=== PATIENT | female | born 1935 | race Hispanic/Latino ===

== ENCOUNTER 2017-07-22 17:05 | Inpatient (IN) | payer MEDICARE, MEDICAID ==
[2017-07-22 17:33] LABS: Bilirubin Negative (Negative); Blood, Urine Negative (Negative); Clarity CLOUDY (Clear); Glucose, Urine (Dipstick) Negative (Negative); Leukocyte Small (Negative); Nitrite Positive (Negative); Protein, Urine (Dipstick) Trace mg/dL (Neg-Trace); Urobilinogen 0.2 mg/dL (0.2-1.0); pH, Urine 5.5 (5.0-9.0)
[2017-07-22 17:36] LABS: Bacteria/HPF 3+ HPF (None Seen); Hyaline Casts/LPF 0-3 HYALINE CAST LPF (0-3 Hyaline)
[2017-07-22 17:52] LABS: #Eosinphils 0.1 thou/uL (0.0-0.7); #Lymphocytes 1.7 thou/uL (1.20-3.40); #Monocytes 0.5 thou/uL (0.11-0.59); #Neutrophils 4.8 thou/uL (1.40-6.50); %Basophils 0.5 % (0.0-1.0); %Eosinophils 1.7 % (0.0-10.0); %Neutrophils 66.8 % (42.0-75.0); Mean Corpuscular HGB CONC 32.1 g/dL (32.0-36.0); Mean Corpuscular Hemoglobin 27.2 pg (27.0-31.0); Mean Corpuscular Volume 84.8 fl (81.0-99.0); Mean Platelet Volume 8.6 fL (7.4-10.4); Platelet Count 170 thou/uL (130-400); RBC Distribution Width 14.7 % (11.5-14.5); Red Blood Cell (RBC) Count 4.43 mill/uL (4.20-5.40); White Blood Cell (WBC) Count 7.2 thou/uL (4.8-10.8)
[2017-07-22 18:18] LABS: ALT (SGPT) 8 U/L (8-55); AST (SGOT) 14 U/L (5-34); Albumin 3.9 g/dL (3.4-4.8); Alkaline Phosphatase 97 U/L (40-150); Anion Gap 16 mmol/L (10-20); BUN (Urea Nitrogen) 41 mg/dL (9.8-20.1); Bilirubin, Total 0.2 mg/dL (0.2-1.2); Calc. Creatinine Clearance 0 mL/min (70-130); Calcium 9.2 mg/dL (7.8-10.44); Carbon Dioxide 21 mmol/L (23-31); Chloride 103 mmol/L (98-107); Estimated GFR-MDRD 34; Globulin 2.9 g/dL (2.4-3.5); Glucose 102 mg/dL (83-110); Potassium 4.6 mmol/L (3.5-5.1); Protein, Total 6.8 g/dL (6.0-8.3); Sodium 135 mmol/L (136-145)
[2017-07-22] MEDS ORDERED: cefTRIAXone\\ROCEPHIN 1 GM VIAL ONE (18:35)
[2017-07-22] MEDS ORDERED: cloNIDine 0.1 MG TAB ONE (19:01)
--- NOTE | 2017-07-22 19:15 | CT ---
CT HEAD WITHOUT CONTRAST: 07/22/17 Multiple axial tomograms obtained through the head without IV enhancement. HISTORY: Dizziness. Cortical atrophy. Ischemic white matter change. No hemorrhage, mass, or acute infarct identified. The re is mucosal opacification of the left sphenoid sinus. The other paranasal sinuses appear well aerat ed. The sphenoid sinus opacification is stable when compared to prior head CT of 05/09/15. IMPRESSION: No evidence of acute process. POS: [facility]
[2017-07-22 19:21] LABS: CKMB 0.8 ng/mL (0-6.6); Troponin I Less than 0.010 ng/mL (< 0.028)
[2017-07-22] MEDS ORDERED: hydrALAZINE 20 MG/ML VIAL ONE (20:32)
[2017-07-22] MEDS ORDERED: tiZANidine HCl 4 MG TAB PO SCH (23:00)
[2017-07-22] MEDS: traMADol HCl 50 MG TAB PO PRN (23:04)
[2017-07-22 23:12] LABS: Troponin I 0.012 ng/mL (< 0.028)
[2017-07-23 01:28] LABS: Troponin I 0.021 ng/mL (< 0.028)
[2017-07-23] MEDS: traMADol HCl 50 MG TAB PO PRN ×4 (04:25→23:33)
[2017-07-23 04:35] LABS: INR-International Normal Ratio 2.1; Prothrombin Time 24.4 SEC (12.0-14.7)
[2017-07-23] MEDS ORDERED: cefTRIAXone\\ROCEPHIN 1 GM in Sodium Chloride 0.9% 100 ML IVPB SCH (06:00)
[2017-07-23] MEDS: Hydrochlorothiazide 25 MG TAB PO SCH (09:14)
[2017-07-23] MEDS: Amlodipine 10 MG TAB PO SCH (09:15)
[2017-07-23] MEDS: Furosemide 20 MG TAB PO SCH ×2 (09:16→14:03)
[2017-07-23] MEDS: Lisinopril 20 MG TAB PO SCH ×2 (09:16→21:11)
[2017-07-23] MEDS: Ferrous Sulfate 325 MG TAB PO SCH (09:17)
[2017-07-23] MEDS: hydrALAZINE 10 MG TAB PO SCH ×3 (09:17→21:11)
[2017-07-23] MEDS ORDERED: Regadenoson 0.4 MG/5 ML SYRINGE ONE (11:32)
--- NOTE | 2017-07-23 15:49 | NM ---
CARDIAC SPECT: CLINICAL HISTORY: 81-year-old female with dizziness, coronary artery disease, atrial fibrillation, hypertensio n, diabetes, and dyslipidemia. TECHNIQUE: A myocardial perfusion scan was performed using the single isotope one day protocol with technetium-9 9m sestamibi. 9 mCi were injected intravenously for the rest exam followed by 29 mCi for the stress e xam. Pharmacologic stress with Lexiscan was monitored and interpreted by Dr. Parry. FINDINGS: There is a small, fixed defect in the distal anteroseptal wall with normal contractility and thickeni ng, most likely due to an artifact. No reversible defects are seen. GATED SPECT LVEF: 76%. WALL MOTION EXAM: Normal. IMPRESSION: No evidence of reversible ischemia. POS: [facility]
[2017-07-23] MEDS ORDERED: Warfarin Sodium 5 MG TAB PO SCH (17:00)
[2017-07-23] MEDS ORDERED: Insulin Regular 300 UNITS/3 ML VIAL SC PRN (18:19)
[2017-07-23] MEDS ORDERED: Dextrose 50% Abboject 50 ML SYRINGE IVP PRN (18:19)
[2017-07-23] MEDS ORDERED: Dextrose 5% in Water 1,000 ML IV PRN (18:19)
[2017-07-23] MEDS ORDERED: Simvastatin 20 MG TAB PO SCH (21:00)
[2017-07-23] MEDS ORDERED: tiZANidine HCl 4 MG TAB PO SCH (21:00)
[2017-07-24 05:35] LABS: Hemoglobin 11.9 g/dL (12.0-16.0); Platelet Count 170 thou/uL (130-400); Prothrombin Time 23.4 SEC (12.0-14.7)
[2017-07-24] MEDS ORDERED: cefTRIAXone\\ROCEPHIN 1 GM in Sodium Chloride 0.9% 100 ML IVPB SCH (06:00)
--- NOTE | 2017-07-24 07:49 | HP ---
DATE OF ADMISSION: 07/22/2017 REASON FOR ADMISSION AND CHIEF COMPLAINT: Dizziness, not feeling well, and nausea. HISTORY OF PRESENT ILLNESS: Ms. Linares is an 81-year-old female with past medical history of coronary artery disease, hypertension, atrial fibrillation, and diabetes mellitus, came because of has been feeling very dizzy , unable to ambulate, not feeling well, feels nauseated, no vomiting, but no chest pain or shortness of breath, no headache. The patient also has increased frequency and dysuria, so the patient came to the hospital. In the ER, the patient was evaluated and found to have urinary tract infection. The patient received a dose of Rocephin. Her EKG showed T-wave inversions, so in view of that, the patient is being admitted to rule out myocardial infarction. The patient was also found to have elevated blood pressure. PAST MEDICAL HISTORY: 1. Hypertension. 2. Diabetes mellitus. 3. Hyperlipidemia. 4. History of cerebrovascular accident. 5. Chronic kidney disease, stage 3. 6. Coronary artery disease. 7. Chronic atrial fibrillation, on anticoagulation. PAST SURGICAL HISTORY: Status post appendectomy, status post cholecystectomy. CURRENT MEDICATIONS: The patient is on tizanidine 4 mg at bedtime, tramadol 50 q.i.d. p.r.n., Coumadin 5 mg daily, amlodipine 10 mg daily, aspirin 81 mg daily , diltiazem 120 mg daily, Lasix 20 b.i.d., hydralazine 10 t.i.d., hydrochlorothiazide 25 mg daily, lisinopril 20 b.i.d., metformin 1000 b.i.d., sertraline 50 mg daily, simvastatin 20 mg daily. ALLERGIES: NKDA. FAMILY HISTORY: Nothing of interest. SOCIAL HISTORY: The patient lives alone. No history of smoking. No history of alcohol intake. REVIEW OF SYSTEMS: Cardiovascular: No chest pain, no shortness of breath. Respiratory: No fever or cough. Gastrointestinal: Has nausea. No vomiting. Central Nervous System: Has dizziness, no headache. PHYSICAL EXAMINATION: GENERAL: The patient is alert, awake, oriented x3. VITAL SIGNS: Temperature 98, pulse 90, respirations 20, blood pressure 169/77. HEENT: Head is normocephalic, atraumatic. Pupils equal and reactive. Nasopharynx is pink, moist. NECK: Supple. No JVD. LUNGS: Bilateral air entry present, no rales, no rhonchi. HEART: S1, S2, irregularly irregular. ABDOMEN: Soft. No distention, no tenderness. Normal bowel sounds present. RECTAL: Deferred. CENTRAL NERVOUS SYSTEMS: No focal neurological deficit. EXTREMITIES: No edema. LABORATORY AND X-RAY FINDINGS: CBC shows WBC 7.2, hemoglobin 12, hematocrit 37 , platelets 170. Metabolic panel: Sodium 135, potassium 4.6, chloride 103, CO2 of 20, urea nitrogen 41, creatinine 1.4, glucose 102. Prothrombin time 24, INR 2.1. Urinalysis showed wbc's 7-10, bacteria 3+. EKG shows sinus rhythm with T-wave inversion in V3, V6. Brain CT negative. ASSESSMENT: 1. Dizziness and abnormal EKG, rule out myocardial infarction. 2. Hypertension, uncontrolled. 3. Urinary tract infection. 4. Insulin-dependent diabetes mellitus. 5. Diastolic dysfunction. 6. Atrial flutter and fibrillation. 7. Status post cerebrovascular accident. PLAN: 1. Vital signs q.4 hours. 2. Activity: As tolerated. 3. Allergies: NKDA. 4. Hep-Lock. 5. Diet: ADA. 6. Troponin I q.6 hours x2. 7. continue home meds 8. Adenosine Cardiolite stress test. 9. Rocephin 1 gram IV piggyback daily, continue home medication. 10. Accu-Chek a.c. and at bedtime. 11. Sliding scale mild with regular insulin. MTDD
[2017-07-24] MEDS: Hydrochlorothiazide 25 MG TAB PO SCH (08:25)
[2017-07-24] MEDS: Amlodipine 10 MG TAB PO SCH (08:26)
[2017-07-24] MEDS: Lisinopril 20 MG TAB PO SCH (08:26)
[2017-07-24] MEDS: Ferrous Sulfate 325 MG TAB PO SCH (08:26)
[2017-07-24] MEDS: hydrALAZINE 10 MG TAB PO SCH (08:26)
[2017-07-24] MEDS: Furosemide 20 MG TAB PO SCH (08:26)
[2017-07-24] MEDS: traMADol HCl 50 MG TAB PO PRN (08:27)
[2017-07-24] MEDS ORDERED: Insulin NPH/Reg Insulin Hm 300 UNITS/3 ML VIAL SC SCH (09:00)
--- NOTE | 2017-07-24 13:10 | EKG ---
Test Reason : Blood Pressure : / mmHG Vent. Rate : 083 BPM Atrial Rate : 083 BPM P-R Int : 226 ms QRS Dur : 066 ms QT Int : 390 ms P-R-T Axes : 045 044 163 degrees QTc Int : 458 ms Atrial fibrillation /Flutter Abnormal ECG When compared with ECG of 04-JUL-2015 00:34, Previous ECG has undetermined rhythm, needs review ST now depressed in Lateral leads Nonspecific T wave abnormality has replaced inverted T waves in Inferior leads Confirmed by RHEA HU ([id number]) on 07/24/2017 1:09:42 PM Referred By: KEVIN Confirmed By:RHEA HU
[2017-07-24 13:17] VITALS: BP 151/67; TEMP 97.9
--- NOTE | 2017-07-27 08:18 | DIS ---
DATE OF ADMISSION: 07/22/2017 DATE OF DISCHARGE: 07/24/2017 ADMITTING DIAGNOSES: 1. Dizziness, abnormal EKG, rule out myocardial infarction. 2. Hypertension, uncontrolled. 3. Urinary tract infection. 4. Insulin-dependent diabetes mellitus. 5. Diastolic dysfunction. 6. Atrial flutter versus fibrillation. 7. Status post cerebrovascular accident. FINAL DIAGNOSES: 1. Dizziness and abnormal EKG. No evidence of acute myocardial infarction, negative Cardiolite stress test. 2. Hypertension, uncontrolled, improved. 3. Urinary tract infection. 4. Insulin-dependent diabetes mellitus. 5. Diastolic dysfunction. BRIEF SUMMARY OF HOSPITAL COURSE: Ms. Linares is an 81-year-old female admitted because of dizziness and weakness. Patient has abnormal EKG with T-wave inversions in V4 to 6. In view of risk factor, patient is admitted to rule out OR. Serial cardiac enzymes are within normal limits. Patient's stress test showed no reversible defect. Patient did not have any more dizziness. Her blood pressure initially uncontrolled, but improved later on with medications. Patient was also found to have urinary tract infection. Urine culture showed E. coli, sensitive to ceftriaxone and nitrofurantoin, so patient was discharged home. At the time of discharge he was stable. vital signs stable. Lungs clear. Heart sounds regular. Abdomen soft, nontender. Bowel sounds present. DISCHARGE MEDICATIONS: Include tizanidine 4 mg at bedtime, simvastatin 20 mg daily, aspirin 81 mg daily, metformin 1000 b.i.d., Lasix 20 mg b.i.d., Coumadin 5 mg daily, tramadol 50 q.6 hours p.r.n., lisinopril 20 mg b.i.d., amlodipine 10 mg daily, diltiazem 120 daily, sertraline 50 mg daily, hydrochlorothiazide 25 mg daily, hydralazine 10 mg t.i.d., ferrous sulfate daily, insulin 70/30 of 25 units daily, Macrobid 100 mg b.i.d. for 10 days. FOLLOWUP: Patient will come for followup in 2 weeks. [facility]
== END 2017-07-24 15:18 | disposition home or self-care (01) | DRG 690 ==
LOC: ERS 17:05 → OBSVTOIN 19:12 → 2SW 19:12 → 2NO 07-23 13:55
PROVIDERS: ADMIT Internal Medicine; ATTEND Internal Medicine
DX: N39.0 Urinary tract infection, site not specified (principal); I48.92 Unspecified atrial flutter; R94.31 Abnormal electrocardiogram [ECG] [EKG]; I25.10 Atherosclerotic heart disease of native coronary artery without angina pectoris; E78.5 Hyperlipidemia, unspecified; Z86.73 Personal history of transient ischemic attack (TIA), and cerebral infarction without residual deficits; I12.9 Hypertensive chronic kidney disease with stage 1 through stage 4 chronic kidney disease, or unspecified chronic kidney disease; E11.22 Type 2 diabetes mellitus with diabetic chronic kidney disease; N18.3 Chronic kidney disease, stage 3 (moderate); I48.2 Chronic atrial fibrillation; Z79.01 Long term (current) use of anticoagulants; Z95.5 Presence of coronary angioplasty implant and graft; B96.20 Unspecified Escherichia coli [E. coli] as the cause of diseases classified elsewhere
CPT/HCPCS: 36415; 36416; 70450; 78452; 80053; 81003; 81015; 82553; 84484; 85014; 85018; 85025; 85049; 85610; 87077; 87086; 87186; 93005; 93010; 93017; 96365; 96375; A4216; A9500; J0360; J0696; J2785; J7050

== ENCOUNTER 2017-09-20 18:17 | Observation (INO) | payer MEDICARE, MEDICAID ==
[~2017-09-20 18:17] MED LIST: Iopamidol 370 76% 50 ML VIAL FS ONE
[2017-09-20] MEDS ORDERED: Ondansetron HCl/PF 4 MG/2 ML Vial ONE ×2 (18:41→21:24)
[2017-09-20 19:14] LABS: #Lymphocytes 1.7 thou/uL (1.20-3.40); #Monocytes 0.6 thou/uL (0.11-0.59); #Neutrophils 7.1 thou/uL (1.40-6.50); %Basophils 0.5 % (0.0-1.0); %Eosinophils 0.5 % (0.0-10.0); %Lymphocytes 17.5 % (21.0-51.0); %Monocytes 6.7 % (0.0-10.0); %Neutrophils 74.8 % (42.0-75.0); Hemoglobin 13.8 g/dL (12.0-16.0); Mean Corpuscular Hemoglobin 29.1 pg (27.0-31.0); Mean Corpuscular Volume 85.3 fL (78.0-98.0); Mean Platelet Volume 9.4 fL (7.4-10.4); Platelet Count 174 thou/uL (130-400); RBC Distribution Width 16.4 % (11.5-14.5); Red Blood Cell (RBC) Count 4.76 mill/uL (4.20-5.40); White Blood Cell (WBC) Count 9.5 thou/uL (4.8-10.8)
[2017-09-20 19:20] LABS: INR-International Normal Ratio 1.2; PTT 33.7 SEC (22.9-36.1); Prothrombin Time 15.6 SEC (12.0-14.7)
[2017-09-20 19:24] LABS: CKMB 2.1 ng/mL (0-6.6); Troponin I 0.078 ng/mL (< 0.028)
[2017-09-20 19:26] LABS: ALT (SGPT) 7 U/L (8-55); AST (SGOT) 13 U/L (5-34); Albumin 4.4 g/dL (3.4-4.8); Alkaline Phosphatase 82 U/L (40-150); Anion Gap 20 mmol/L (10-20); BUN (Urea Nitrogen) 44 mg/dL (9.8-20.1); Bilirubin, Total 0.6 mg/dL (0.2-1.2); Calc. Creatinine Clearance 0 mL/min (70-130); Calcium 9.1 mg/dL (7.8-10.44); Carbon Dioxide 16 mmol/L (23-31); Chloride 104 mmol/L (98-107); Estimated GFR-MDRD 27; Globulin 2.8 g/dL (2.4-3.5); Glucose 160 mg/dL (83-110); Lipase 15 U/L (8-78); Potassium 5.2 mmol/L (3.5-5.1); Protein, Total 7.2 g/dL (6.0-8.3); Sodium 135 mmol/L (136-145)
[2017-09-20 19:26] LABS: Bilirubin Negative (Negative); Blood, Urine Negative (Negative); Clarity CLEAR (Clear); Glucose, Urine (Dipstick) Negative (Negative); Leukocyte Trace (Negative); Nitrite Negative (Negative); Protein, Urine (Dipstick) 300 mg/dL (Neg-Trace); Specific Gravity, Urine 1.015 (1.002-1.036); Urobilinogen 0.2 mg/dL (0.2-1.0); pH, Urine 5.5 (5.0-9.0)
[2017-09-20 19:29] LABS: Bacteria/HPF None Seen HPF (None Seen); Hyaline Casts/LPF 4-6 HYALINE CAST LPF (0-3 Hyaline)
[2017-09-20 19:41] LABS: RBC/HPF 0-3 HPF (0-3)
[2017-09-20] MEDS ORDERED: Lidocaine Viscous Sol 2% 15 ml UD Cup ONE (21:24)
[2017-09-20] MEDS ORDERED: Mag-Al 1200 mg/1200 mg/30 ML UDCUP ONE (21:24)
[2017-09-20] MEDS ORDERED: Aspirin 325 MG TAB ONE (21:24)
--- NOTE | 2017-09-20 21:39 | CT ---
CT OF ABDOMEN AND PELVIS: Date: 09-20-17 Comparison: 11-21-11 History: Epigastric pain. Technique: Serial axial CT imaging at 5 mm intervals from lung bases through pubic symphysis with ora l contrast. Coronal reformatted imaging obtained. FINDINGS: The lack of IV contrast limits assessment of the viscera vascular structures and for lymphadenopathy. Coronary arterial calcification is partially visualized. The visualized lung bases appear grossly unr emarkable. No free intraperitoneal air or fluid. Cholecystectomy clips are present. The liver, spleen, and adrenal glands are grossly unremarkable. Th ere is fatty atrophy of the pancreas. No evidence for nephrolithiasis or obstructive uropathy is note d on either side. There is a small hyperdense lesion involving the lower pole of the right kidney best seen on coronal image 71 measuring 9 mm, too small to characterize. Follow up renal ultrasound advised. No evidence f or bowel inflammatory change or obstruction. Extensive atherosclerotic calcification of the branches of the abdominal aorta noted. Extensive atherosclerotic calcification of the pelvic arterial structur es noted. There is degenerative change involving the pubic symphysis. The bones are demineralized. Bilateral sa croiliac joint degenerative change noted. There is extensive degenerative change involving the imaged spine. IMPRESSION: 1. No free intraperitoneal air or evidence of small bowel obstruction. 2. Atherosclerotic disease. 3. Small hyperdense lesion in lower pole of left kidney for which non-emergent follow up renal ultras ound advised. POS: [facility]
[2017-09-20 23:27] VITALS: BMI 29.5
[2017-09-21 03:31] LABS: Troponin I 0.091 ng/mL (< 0.028)
[2017-09-21] MEDS ORDERED: cloNIDine 0.1 MG TAB PO PRN (04:37)
[2017-09-21] MEDS ORDERED: hydrALAZINE 25 MG TAB PO SCH ×2 (04:45→15:00)
[2017-09-21] MEDS ORDERED: Lisinopril 10 MG TAB PO SCH ×2 (04:45→21:00)
[2017-09-21] MEDS ORDERED: HumaLOG 300 UNITS/3 ML VIAL SC PRN ×2 (05:06)
[2017-09-21] MEDS ORDERED: tiZANidine HCl 4 MG TAB PO PRN (05:06)
[2017-09-21] MEDS ORDERED: Acetaminophen 325 MG TAB PO PRN (05:06)
[2017-09-21] MEDS ORDERED: Dextrose 50% Abboject 50 ML SYRINGE SLOW IVP PRN (05:06)
[2017-09-21] MEDS ORDERED: Dextrose 5% in Water 1,000 ML IV PRN (05:06)
[2017-09-21] MEDS ORDERED: Ondansetron HCl/PF 4 MG/2 ML Vial IVP PRN (05:06)
[2017-09-21] MEDS ORDERED: Ondansetron ODT 4 MG TAB PO PRN (05:06)
[2017-09-21] MEDS: cloNIDine 0.1 MG TAB PO PRN ×3 (06:06→16:09)
[2017-09-21] MEDS: Sodium Chloride 0.9% 1,000 ML IV SCH ×2 (06:07→19:11)
--- NOTE | 2017-09-21 08:06 | HP ---
She is not sure of the name of her primary care physician. CHIEF COMPLAINT: "I am having a hurting in my stomach." HISTORY OF PRESENT ILLNESS: Ms. Linares is a very pleasant 82-year-old female that has a history of hypertension, diabetes mellitus, cerebrovascular disease and coronary artery disease as well as atri al fibrillation. She says that she began having pain in her stomach about a week ago. She has a dif ficult time characterizing it other than it hurts. She says to the point where it also makes her cry . She says that she has not been able to eat anything for the last week, every time she eats somethi ng she throws it up. She also has been having nausea. She also admits to "a lot of diarrhea" severa l loose stools a day. She denies any hematemesis, however, and denies any melena or blood in the sto ols. She says she has lost weight, but she does not know how much she has lost. She however denies any fever or chills and no dysphagia and it is very difficult to tell if anything makes the pain bett er or worse. She says she cannot eat or keep anything down, so she cannot tell her food makes it wor se. The pain does not radiate. It stays primarily in the mid portion of her abdomen and she continu es to have some pain now. REVIEW OF SYSTEMS: With regards to the review of systems, all systems were reviewed and are negative except for that mentioned in the history of present illness. PAST MEDICAL HISTORY: Significant for hypertension, diabetes mellitus, hyperlipidemia, cerebrovascul ar accident, chronic kidney disease stage 3, coronary artery disease, and atrial fibrillation. PAST SURGICAL HISTORY: She has had an appendectomy, cholecystectomy. ALLERGIES: No known drug allergies. SOCIAL HISTORY: She is , has 3 children. She is a nonsmoker, nondrinker. CODE STATUS: FULL CODE. FAMILY HISTORY: No history of any inheritable diseases. MEDICATIONS: Include Eliquis 2.5 mg twice a day, aspirin 81 mg daily, 70/30 insulin 25 units a day, iron 65 mg daily, lisinopril 10 mg twice a day, meclizine 12.5 mg as needed, Toprol-XL 25 mg daily, M acrobid 100 mg twice a day, simvastatin 20 mg at bedtime, clonidine 0.1 mg q.6 hours as needed, hydra lazine 25 mg t.i.d., metformin 1000 mg twice a day, tizanidine 4 mg as needed, and tramadol 50 mg q.6 hours as needed. PHYSICAL EXAMINATION: GENERAL: She is alert and oriented. She appears to be in no acute distress. VITAL SIGNS: Her blood pressure has ranged from 147/63-201/77, heart rate in the 60s-80s, respirator y rate of 18, temperature is 98.7. HEENT: Pupils are equal, round, and reactive to light. Extraocular muscles are intact. Her sclerae are anicteric. Throat no erythema, no exudates. NECK: No adenopathy, no bruits. LUNGS: Clear. No wheezing, no rales. CARDIOVASCULAR: She has a normal S1, S2. I did not appreciate an S3 or S4. No murmurs, clicks or r ubs. ABDOMEN: Soft. She has got some exquisite epigastric tenderness. There is no rebound, no guarding, no organomegaly. EXTREMITIES: No clubbing, cyanosis, no edema. NEUROLOGIC: The exam is nonfocal. Muscle strength is 5/5 in both her upper and lower extremities an d there are no skin lesions or rashes. LABORATORY RESULTS AND IMAGING: Her white blood cell count is 9.5, hemoglobin 13.8, hematocrit is 40 .6, platelet count is 174. INR is 1.2. Sodium 135, potassium 5.2, chloride is 104, CO2 16, BUN of 4 4, creatinine 1.78, glucose is 160. She also had a CT scan of the abdomen and pelvis, which there wa s no free intraperitoneal air or evidence of small-bowel obstruction and there was some arthrosclerot ic disease, small hypodense lesion in the lower pole of the left kidney. Nonemergent follow up renal ultrasound was advised. ASSESSMENT: This is an 82-year-old female that presents to the emergency room with fairly severe epi gastric pain, which has been more or less constant for the last week. She has also had vomiting and unable to keep anything down, as well as diarrhea. This could represent gastroenteritis; however, he r symptoms have persisted for about a week now, which is somewhat unusual and the degree of tendernes s on exam is also unusual for gastroenteritis. For this reason, we will go ahead and consult Gastroe nterology for further recommendations as well. Place her on IV fluids, IV proton pump inhibitor and antiemetics. 1. Diabetes mellitus, we will hold her usual medications for diabetes and place her on a sliding sca le, especially she is likely unable to take p.o. for right now. 2. Atrial fibrillation, her heart rate is controlled. We will continue Eliquis with sips of water f or right now. 3. Coronary artery disease. We will continue her usual medications for heart disease including the Cardizem and metoprolol. We will hold lisinopril for right now and further recommendations will depe nd on her clinical course.
[2017-09-21] MEDS: Apixaban 2.5 MG TAB PO SCH ×2 (09:06→20:31)
[2017-09-21] MEDS: hydrALAZINE 25 MG TAB PO SCH ×3 (09:06→20:29)
[2017-09-21] MEDS: traMADol HCl 50 MG TAB PO PRN ×2 (09:16→20:51)
--- NOTE | 2017-09-21 16:00 | CON ---
DATE OF CONSULTATION: 09/21/2017 GASTROENTEROLOGY CONSULTATION NOTE CHIEF COMPLAINT: Abdominal pain. HISTORY OF PRESENT ILLNESS: Ms. Linares is an 82-year-old woman who presented to the emergency room with a 1-1-1/2 week history of epigastric aching abdominal pain that was constant and did not radiat e. The pain would wake her up at night. She would have vomiting after eating. She started an antib iotic about a week ago for urinary tract infection. She has been having liquidy diarrhea around 3 ti mes per day for the last week or week and a half as well. She has had no blood in the stool. No fev er. The epigastric pain; however was severe and would cause her to cry. She received IV fluids in [facility] emergency room. She had a CT scan performed which was unremarkable. Today, her abdominal pain is completely resolved. She tolerated part of a sandwich today. She has had no melena or hematochezia . At baseline, she has chronic constipation and takes Milk of Magnesia after she has gone 3 days wit hout a bowel movement; however, over the last week and a half she is not having diarrhea. PAST MEDICAL HISTORY: Atrial fibrillation, coronary artery disease, diabetes mellitus, hyperlipidemi a, hypertension. PAST SURGICAL HISTORY: Appendectomy, cholecystectomy and angioplasty. She had EGD and colonoscopy a couple of years ago. The EGD showed some gastritis. Biopsies then from the stomach were negative f or H. pylori. Duodenal biopsies were unremarkable. Colonoscopy was normal. These procedures were d one for iron deficiency anemia at that time. FAMILY HISTORY: Negative for GI malignancies. SOCIAL HISTORY: No alcohol, tobacco or drugs. She lives at home alone and her daughter lives nearby . Her daughter is with her now and helps to translate. ALLERGIES: No known drug allergies. MEDICATIONS PRIOR TO ADMISSION: Metformin, warfarin, aspirin, hydralazine, simvastatin, lisinopril, furosemide, hydrochlorothiazide, sertraline, diltiazem, tramadol, iron, tizanidine, clonidine, nitrof urantoin, metoprolol, meclizine, insulin, amlodipine. REVIEW OF SYSTEMS: Negative x10 systems reviewed except as stated in history of present illness. PHYSICAL EXAMINATION: VITAL SIGNS: Temperature 98.4, pulse 95, blood pressure 173/74. GENERAL: She is in no acute distress, alert and oriented x3. HEENT: Eyes have no scleral icterus. Oropharynx is clear, without lesions. NECK: No cervical or supraclavicular lymphadenopathy. LUNGS: Clear to auscultation bilaterally. HEART: Regular rate and rhythm without murmur. ABDOMEN: Soft, nontender, nondistended. Bowel sounds are present. EXTREMITIES: No lower extremity edema. Cranial nerves are grossly intact. LABORATORY DATA: White blood cell count 9.5, hemoglobin 13.8, creatinine 1.78. LFTs were normal. L ipase was normal. IMAGING DATA: CT scan of the abdomen and pelvis showed some atherosclerotic changes. IMPRESSION: Epigastric pain and diarrhea for the last week to week and a half. This did seem to sta rt after she initiated antibiotics for urinary tract infection. The current picture could be due to mild ischemic colitis or side effects from the antibiotics or viral gastroenteritis. Stool studies h ave been obtained and are negative so far including C. diff and Campylobacter. The lactoferrin was e levated. RECOMMENDATIONS: Her pain is now completely resolved with IV hydration. We will continue to monitor her clinically and advance her diet. If she is tolerating a diet well tomorrow without worsening di arrhea and once her pain continues to improve, then she can likely discharge home tomorrow. No indic ation for repeat endoscopy at this time.
[2017-09-21] MEDS ORDERED: Simvastatin 20 MG TAB PO SCH (21:00)
[2017-09-22 04:52] LABS: #Basophils 0.1 thou/uL (0.0-0.2); #Eosinphils 0.1 thou/uL (0.0-0.7); #Lymphocytes 1.1 thou/uL (1.20-3.40); #Monocytes 0.5 thou/uL (0.11-0.59); #Neutrophils 4.4 thou/uL (1.40-6.50); %Basophils 1.1 % (0.0-1.0); %Eosinophils 1.8 % (0.0-10.0); %Lymphocytes 18.1 % (21.0-51.0); %Monocytes 7.8 % (0.0-10.0); %Neutrophils 71.2 % (42.0-75.0); Hemoglobin 11.3 g/dL (12.0-16.0); Mean Corpuscular HGB CONC 34.2 g/dL (32.0-36.0); Mean Corpuscular Hemoglobin 29.4 pg (27.0-31.0); Mean Corpuscular Volume 86.1 fL (78.0-98.0); Mean Platelet Volume 9.4 fL (7.4-10.4); Platelet Count 139 thou/uL (130-400); RBC Distribution Width 16.6 % (11.5-14.5); Red Blood Cell (RBC) Count 3.84 mill/uL (4.20-5.40); White Blood Cell (WBC) Count 6.2 thou/uL (4.8-10.8)
[2017-09-22 05:00] LABS: Anion Gap 14 mmol/L (10-20); BUN (Urea Nitrogen) 31 mg/dL (9.8-20.1); Calc. Creatinine Clearance 38 mL/min (70-130); Calcium 8.5 mg/dL (7.8-10.44); Carbon Dioxide 16 mmol/L (23-31); Chloride 111 mmol/L (98-107); Estimated GFR-MDRD 40; Glucose 161 mg/dL (83-110); Potassium 4.6 mmol/L (3.5-5.1); Sodium 136 mmol/L (136-145)
[2017-09-22 07:52] VITALS: TEMP 98.3
[2017-09-22] MEDS: Sodium Chloride 0.9% 1,000 ML IV SCH (08:21)
[2017-09-22] MEDS: Apixaban 2.5 MG TAB PO SCH (08:21)
[2017-09-22] MEDS: hydrALAZINE 25 MG TAB PO SCH (08:21)
[2017-09-22 10:11] VITALS: BP 180/78
--- NOTE | 2017-09-22 12:56 | DIS ---
DATE OF ADMISSION: 09/20/2017 DATE OF DISCHARGE: 09/22/2017 DISCHARGE DIAGNOSES: 1. Gastroenteritis, likely viral, resolved. 2. Epigastric abdominal pain secondary to #1, resolved. 3. Hypertension, labile. 4. Chronic kidney disease, stage 3. 5. Elevated troponin I, likely due to demand ischemia. 6. Diabetes mellitus, type 2, insulin requiring. CONSULTATIONS: Dr. Elias with GI Service. PERTINENT LAB AND X-RAY FINDINGS: Creatinine ranged between 1.27-1.78, estimated GFR ranged between 27-40. LFTs within normal limits. Troponin ranged between 0.070-0.091. Lipase 15. CBC showed a he moglobin ranged between 11.3-13.8. C. difficile antigen and toxin, 09/21/2017, negative. Stool cult ure dated 09/21/2017 showed normal enteric jony. Campylobacter and Shigella toxin negative. Stool lactoferrin positive. Stool Hemoccult dated 09/21/[address] of the abdomen and pelvis da ivon 09/20/2017 showed no acute intra-abdominal process. HOSPITAL COURSE: The patient was observed on the telemetry unit after initially presenting with epig astric abdominal pain with associated diarrhea. The patient underwent general evaluation including m etabolic screening with stool studies essentially unrevealing except for elevated lactoferrin and Hem occult positive x1. The patient likely with viral gastroenteritis, improved with supportive manageme nt and conservative care including IV fluids and modification to oral intake. The patient's symptoms had resolved by the time of discharge with resolution of diarrhea. The patient was evaluated by the GI service with recommendations to pursue conservative management. The patient was resumed on her r egular home medications, tolerating without difficulty. Telemetry monitoring showed atrial fibrillat ion with controlled rates in the 70s. I have examined the patient at the time of discharge and discu ssed followup instructions, at which point the patient has verbalized understanding and agreement. T he patient overall clinically stable and ready for discharge, 09/22/2017. DISCHARGE MEDICATIONS: 1. Eliquis 2.5 mg p.o. b.i.d. 2. Enteric-coated aspirin 81 mg 1 tab p.o. daily. 3. Clonidine 0.1 mg p.o. q.6 hours p.r.n. 4. Diltiazem ER 120 mg 1 tab p.o. daily. 5. Lasix 20 mg p.o. b.i.d. 6. Hydralazine 25 mg p.o. t.i.d. 7. Hydrochlorothiazide 25 mg p.o. daily. 8. Iron 65 mg p.o. daily. 9. Lisinopril 10 mg p.o. b.i.d. 10. Meclizine 12.5 mg p.o. daily. 11. Metformin 1000 mg p.o. b.i.d. 12. Metoprolol succinate 25 mg p.o. daily. 13. Sertraline 50 mg p.o. daily. 14. Zocor 20 mg p.o. at bedtime. 15. Humulin 70/30, 25 units subcutaneously q.a.m. FOLLOWUP: Patient will follow up with Dr. Casandra Oleary within 7 days of discharge. CONDITION ON DISCHARGE: Stable. ACTIVITY: Ad rojas. DIET: Heart healthy and ADA. CODE STATUS: FULL. DISPOSITION: Home, 09/22/2017.
== END 2017-09-22 10:15 | disposition home or self-care (01) ==
LOC: ERS 18:17 → 2SW 23:04
PROVIDERS: ADMIT Internal Medicine; ATTEND Internal Medicine
DX: K52.9 Noninfective gastroenteritis and colitis, unspecified (principal); I25.10 Atherosclerotic heart disease of native coronary artery without angina pectoris; I48.91 Unspecified atrial fibrillation; E78.5 Hyperlipidemia, unspecified; I12.9 Hypertensive chronic kidney disease with stage 1 through stage 4 chronic kidney disease, or unspecified chronic kidney disease; E11.22 Type 2 diabetes mellitus with diabetic chronic kidney disease; N18.3 Chronic kidney disease, stage 3 (moderate); Z86.73 Personal history of transient ischemic attack (TIA), and cerebral infarction without residual deficits; Z79.01 Long term (current) use of anticoagulants; Z79.82 Long term (current) use of aspirin; Z79.4 Long term (current) use of insulin
CPT/HCPCS: 74176; 80048; 80053; 82274; 82553; 82962; 83630; 83690; 84484 ×3; 85025 ×2; 85610; 85730; 87045; 87046; 87324; 87449 ×2; 87899 ×2; 93005; 96361 ×3; 96374; 96375; 96376; 99285; G0378 ×2; 36415; 36416; 81003; 81015; J2270; J2405

== ENCOUNTER 2017-09-25 11:20 | Emergency (ER) | payer MEDICARE, MEDICAID ==
--- NOTE | 2017-09-25 12:41 | RAD ---
CHEST 1 VIEW: HISTORY: Chest pain. COMPARISON: Chest radiograph from 2016. FINDINGS: Heart size is enlarged. Small left effusion. There is right basilar airspace opacity. No pneumotho rax. Increased mediastinal fat. IMPRESSION: 1. Right basilar airspace opacity concerning for a possible infection. 2. Cardiomegaly. POS: [facility]
[2017-09-25 12:49] LABS: #Eosinphils 0.1 thou/uL (0.0-0.7); #Lymphocytes 1.2 thou/uL (1.20-3.40); #Monocytes 0.5 thou/uL (0.11-0.59); #Neutrophils 6.7 thou/uL (1.40-6.50); %Basophils 0.4 % (0.0-1.0); %Eosinophils 1.8 % (0.0-10.0); %Monocytes 5.5 % (0.0-10.0); %Neutrophils 78.4 % (42.0-75.0); Hemoglobin 12.8 g/dL (12.0-16.0); Mean Corpuscular HGB CONC 33.3 g/dL (32.0-36.0); Mean Corpuscular Hemoglobin 29.1 pg (27.0-31.0); Mean Corpuscular Volume 87.3 fL (78.0-98.0); Mean Platelet Volume 9.4 fL (7.4-10.4); Platelet Count 151 thou/uL (130-400); White Blood Cell (WBC) Count 8.5 thou/uL (4.8-10.8)
[2017-09-25 13:03] LABS: ALT (SGPT) 9 U/L (8-55); AST (SGOT) 12 U/L (5-34); Albumin 3.9 g/dL (3.4-4.8); Alkaline Phosphatase 80 U/L (40-150); Anion Gap 15 mmol/L (10-20); BUN (Urea Nitrogen) 22 mg/dL (9.8-20.1); Bilirubin, Total 0.4 mg/dL (0.2-1.2); CK (CPK) 26 U/L (29-168); Calc. Creatinine Clearance 0 mL/min (70-130); Carbon Dioxide 18 mmol/L (23-31); Chloride 109 mmol/L (98-107); Estimated GFR-MDRD 39; Globulin 2.5 g/dL (2.4-3.5); Glucose 161 mg/dL (83-110); Lipase 8 U/L (8-78); Potassium 5.9 mmol/L (3.5-5.1); Protein, Total 6.4 g/dL (6.0-8.3); Sodium 136 mmol/L (136-145)
[2017-09-25 13:07] LABS: CKMB 1.1 ng/mL (0-6.6); Troponin I Less than 0.010 ng/mL (< 0.028)
== END 2017-09-25 14:00 | disposition home or self-care (01) ==
LOC: ERS 11:20
DX: I12.9 Hypertensive chronic kidney disease with stage 1 through stage 4 chronic kidney disease, or unspecified chronic kidney disease (principal); N18.9 Chronic kidney disease, unspecified; E11.22 Type 2 diabetes mellitus with diabetic chronic kidney disease; I48.91 Unspecified atrial fibrillation; E78.5 Hyperlipidemia, unspecified; I25.10 Atherosclerotic heart disease of native coronary artery without angina pectoris; Z79.82 Long term (current) use of aspirin; Z79.899 Other long term (current) drug therapy; Z79.01 Long term (current) use of anticoagulants; Z79.891 Long term (current) use of opiate analgesic
CPT/HCPCS: 36415; 71045; 80053; 82550; 82553; 83690; 84484; 85025; 93005

== ENCOUNTER 2017-10-05 10:50 | Inpatient (IN) | payer MEDICARE, MEDICAID ==
[2017-10-05 11:48] LABS: Hemoglobin 11.6 g/dL (12.0-16.0); Mean Corpuscular HGB CONC 31.3 g/dL (32.0-36.0); Mean Corpuscular Hemoglobin 28.1 pg (27.0-31.0); Mean Platelet Volume 9.5 fL (7.4-10.4); Platelet Count 201 thou/uL (130-400); RBC Distribution Width 17.6 % (11.5-14.5); Red Blood Cell (RBC) Count 4.11 mill/uL (4.20-5.40); White Blood Cell (WBC) Count 14.4 thou/uL (4.8-10.8)
[2017-10-05 12:09] LABS: ALT (SGPT) 9 U/L (8-55); AST (SGOT) 16 U/L (5-34); Albumin 4.1 g/dL (3.4-4.8); Alkaline Phosphatase 88 U/L (40-150); BUN (Urea Nitrogen) 40 mg/dL (9.8-20.1); Bilirubin, Total 0.3 mg/dL (0.2-1.2); Calc. Creatinine Clearance 0 mL/min (70-130); Calcium 8.4 mg/dL (7.8-10.44); Chloride 102 mmol/L (98-107); Estimated GFR-MDRD 11; Globulin 2.8 g/dL (2.4-3.5); Glucose 191 mg/dL (83-110); Protein, Total 6.9 g/dL (6.0-8.3); Sodium 133 mmol/L (136-145)
[2017-10-05 12:32] LABS: Band 12 % (5-11); Burr Cells SLIGHT = 2-5 cells (100X) (0-1/hpf); Lymphocytes 5 % (21-51); MDiff Complete? YES; Monocytes 5 % (0-10); Myelocyte 1 % (0-0); Neutrophil 77 % (42-75); Nucleated RBC 1 % (0); PLT Morphology Comment Appears Adequate; Polychromasia SLIGHT = 2-3 cells (100X) (0-2/hpf)
[2017-10-05 12:36] LABS: Carbon Dioxide 8 mmol/L (23-31); Potassium 6.6 mmol/L (3.5-5.1)
[2017-10-05 12:37] LABS: Anion Gap 30 mmol/L (10-20)
[2017-10-05] MEDS ORDERED: Ondansetron HCl/PF 4 MG/2 ML Vial ONE (12:40)
[2017-10-05 12:50] LABS: Bilirubin Moderate (Negative); Blood, Urine Negative (Negative); Clarity TURBID (Clear); Glucose, Urine (Dipstick) Negative (Negative); Leukocyte Large (Negative); Nitrite Negative (Negative); Protein, Urine (Dipstick) 300 mg/dL (Neg-Trace); Specific Gravity, Urine 1.027 (1.002-1.036)
[2017-10-05 12:51] LABS: Bacteria/HPF 4+ HPF (None Seen); Hyaline Casts/LPF 4-6 HYALINE CAST LPF (0-3 Hyaline); Pathc Cast-AUWi Flag 0.92 (0-2.49); RBC/HPF 0-3 HPF (0-3); Squamous Epithelial 0-3 HPF (0-3)
[2017-10-05] MEDS ORDERED: cefTRIAXone\\ROCEPHIN 2 GM VIAL ONE (13:07)
[2017-10-05] MEDS ORDERED: Sodium Chloride 0.9% 100 ML ONE ×2 (13:08→14:27)
--- NOTE | 2017-10-05 13:30 | RAD ---
RADIOGRAPH CHEST 1 VIEW: Date: 10-05-17 Time: 11:58 a.m. HISTORY: 82-year-old female with fever and generalized weakness with fatigue. COMPARISON: 09-25-17 FINDINGS: The previously demonstrated airspace opacity at the right medial lung base has improved. No new conso lidation. Cardiomegaly. No pneumothorax. IMPRESSION: 1. Cardiomegaly. 2. Interval improvement in the small right lower lobe pulmonary density. JN POS: [facility]
[2017-10-05] MEDS ORDERED: Piperacillin/Tazobactam 4.5 GM VIAL ONE (14:27)
[2017-10-05] MEDS ORDERED: Norepinephrine 8 MG/0.9% NS 250 ML ONE (15:49)
[2017-10-05] MEDS ORDERED: Acetaminophen 325 MG TAB PO PRN (17:19)
[2017-10-05] MEDS ORDERED: Ondansetron ODT 4 MG TAB SL PRN (17:19)
[2017-10-05] MEDS ORDERED: Ondansetron HCl/PF 4 MG/2 ML Vial IVP PRN ×2 (17:19→19:57)
[2017-10-05] MEDS ORDERED: Sodium Chloride 0.9% 1,000 ML IV SCH ×2 (17:19→19:57)
[2017-10-05 17:53] LABS: Lactic Acid 6.5 mmol/L (0.5-2.2)
[2017-10-05 18:01] VITALS: BMI 32.5
[2017-10-05] MEDS ORDERED: Norepinephrine 8 MG/250 ML BAG IVPB PRN (19:40)
[2017-10-05] MEDS ORDERED: CCU Electrolyte Replacement 1 EACH FS SCH (19:57)
[2017-10-05] MEDS ORDERED: HumaLOG 300 UNITS/3 ML VIAL SC PRN (19:57)
[2017-10-05] MEDS ORDERED: Acetaminophen 500 MG TAB PO PRN (19:57)
[2017-10-05] MEDS ORDERED: Ondansetron ODT 4 MG TAB PO PRN (19:57)
[2017-10-05] MEDS ORDERED: Dextrose 50% Abboject 50 ML SYRINGE SLOW IVP PRN (19:57)
[2017-10-05] MEDS ORDERED: Norepinephrine 8 MG/0.9% NS 250 ML IVPB SCH (19:57)
[2017-10-05] MEDS ORDERED: Dextrose 5% in Water 1,000 ML IV PRN (19:57)
[2017-10-05] MEDS ORDERED: Famotidine/PF 20 mg/2ml Vial SLOW IVP SCH (21:00)
[2017-10-05] MEDS ORDERED: Cefepime 2 GM in Sodium Chloride 0.9% 100 ML IVPB SCH (21:00)
[2017-10-06] MEDS: Apixaban 2.5 MG TAB PO SCH ×3 (00:24→21:15)
[2017-10-06] MEDS ORDERED: SODIUM CHLORIDE 0.9% IV SCH (00:30)
[2017-10-06 00:40] LABS: Lactic Acid 3.6 mmol/L (0.5-2.2)
[2017-10-06] MEDS: traMADol HCl 50 MG TAB PO SCH ×3 (00:41→21:21)
[2017-10-06] MEDS: Meropenem 500 MG in Sodium Chloride 0.9% 100 ML IVPB SCH ×3 (00:42→21:15)
--- NOTE | 2017-10-06 00:50 | HP ---
DATE OF ADMISSION: 10/05/2017 PRIMARY CARE PROVIDER: Dr. Oleary. HISTORY OF PRESENT ILLNESS: This is an 82-year-old female wo presents to [facility] Emergency Department with complaints of generalized weakness, persistent diarrhea ove r the last 2-3 weeks with associated nausea and vomiting. The patient apparently was recently diagno sed with urinary tract infection on two separate occasions and treated with antibiotic course in 08/10. The patient has complained of persistent diarrhea, nausea, and decreased oral intake of fluids. Patient has been feeling lethargic without specific documented fever. Patient's family reports a h istory of constipation typically and treated with stool softeners in the past. Patient apparently bhatt s had no specific travel history, change to dietary habits or family members with similar symptoms. In the emergency room, patient underwent general evaluation with screening metabolic survey showing e vidence of acute kidney injury with associated hyperkalemia as well as elevated lactic acid level and concern for sepsis given patient's leukocytosis, lactic acidosis and urinalysis suspicious for infec tious process. Patient received intravenous normal saline as well as Zosyn 4.5 grams x1 dose, vancom ycin 1 gram and Rocephin 2 grams. Patient also received intravenous normal saline, Zofran, and initi ated on Levophed and on Levophed infusion due to hypotension. Patient was transferred to the [facility] Care Unit for further evaluation. PAST MEDICAL HISTORY: 1. Atrial fibrillation with chronic anticoagulation with Eliquis. 2. Coronary artery disease, chronic and stable. 3. Diabetes mellitus type 2, insulin requiring. 4. Hypertension. 5. Hyperlipidemia. 6. Recurrent urinary tract infections. 7. History of cerebrovascular accident. 8. Chronic kidney disease stage 3. PAST SURGICAL HISTORY: 1. Status post appendectomy. 2. Status post cholecystectomy. CURRENT MEDICATIONS: 1. Tramadol 50 mg 2 tablets p.o. b.i.d. 2. Metformin 1000 mg p.o. b.i.d. 3. Aspirin 81 mg p.o. daily. 4. Clonidine 0.1 mg p.o. q.6 hours. 5. Lasix 20 mg p.o. b.i.d. 6. Hydralazine 25 mg p.o. daily. 7. Iron 65 mg p.o. daily. 8. Lisinopril 10 mg p.o. b.i.d. 9. Antivert 12.5 mg p.o. daily. 10. Metformin 1000 mg p.o. b.i.d. 11. Metoprolol succinate XL 25 mg p.o. daily. 12. Protonix 40 mg p.o. daily. 13. Ropinirole 0.5 mg 1-3 tablets p.o. at bedtime. 14. Sertraline 50 mg p.o. daily. 15. Zanaflex 4 mg p.o. at bedtime. 16. Insulin 25 units subcutaneously q.a.m. ALLERGIES: No known drug allergies. FAMILY HISTORY: No inheritable diseases per family report. SOCIAL HISTORY: Patient is with 3 children. No alcohol, tobacco or illicit drug use. Resid es in [place], [place]. Ambulates with use of a cane. REVIEW OF SYSTEMS: The following complete review of systems was negative, unless otherwise mentioned in the HPI or below: Constitutional: Weight loss or gain, ability to conduct usual activities. Sk in: Rash, itching. Eyes: Double vision, pain. ENT/Mouth: Nose bleeding, neck stiffness, pain, te nderness. Cardiovascular: Palpitations, dyspnea on exertion, orthopnea. Respiratory: Shortness of breath, wheezing, cough, hemoptysis, fever or night sweats. Gastrointestinal: Poor appetite, abdom inal pain, heartburn, nausea, vomiting, constipation, or diarrhea. Genitourinary: Urgency, frequenc y, dysuria, nocturia. Musculoskeletal: Pain, swelling. Neurologic/Psychiatric: Anxiety, depressio n. Allergy/Immunologic: Skin rash, bleeding tendency. PHYSICAL EXAMINATION: VITAL SIGNS: On admission, blood pressure 86/44, pulse 93, respiratory rate 19, temperature 97.5 deg chris Fahrenheit, O2 saturation 96% on room air. GENERAL APPEARANCE: This is an 82-year-old female, alert, responds to questions briefly in mild distress. HEENT: Pupils are equal, round, and reactive to light and accommodation. Extraocular muscles are in tact. No scleral icterus, no conjunctival injection. Nares patent. OP is clear. Oral mucosa dry a ppearing. NECK: Supple, no cervical adenopathy, no thyromegaly, no carotid bruits, no JVD appreciated. Cervic al spine with full active and passive range of motion. No meningeal signs appreciated. CHEST: Occasional rhonchi in the left lower chest wall. CARDIOVASCULAR: S1, S2, without noted murmur, rub or gallop. ABDOMEN: Obese with mild tenderness to palpation in the upper quadrants. No rebound or guarding. B owel sounds positive in all 4 quadrants. No palpable mass. EXTREMITIES: Warm and dry with fair turgor. No clubbing, cyanosis or asymmetric edema appreciated. Pulses are palpable distally at the dorsalis pedis, posterior tibial, and popliteal arteries bilater ally. Capillary refill less than 2 seconds. GENITOURINARY: García catheter in place with cloudy yellow urine. NEUROLOGIC: Cranial nerves II-XII are grossly intact. No focal or lateralizing signs appreciated. PERTINENT LABORATORY AND X-RAY FINDINGS: Sodium 133, potassium 3.6, chloride 102, CO2 of 8, anion ga p of 30, BUN 40, creatinine 3.87, estimated GFR of 11, glucose 191. Lactic acid level ranged between 6.5-8.1, calcium 8.4. LFTs within normal limits. CBC showed a white blood cell count of 15.4, hemo globin 12, hematocrit 37, platelet count 201 with 77% neutrophils, 12% bands. Urinalysis showed mode rate bilirubin, large leukocyte esterase with greater than 50 to too numerous to count wbc's per high power field and 4+ bacteria. Portable chest x-ray dated 10/05/2017 showed interval improvement in s mall right lower lobe pulmonary density. CT of the abdomen and pelvis dated 09/20/2017 showed no acu te intra-abdominal process. ASSESSMENT AND PLAN: 1. Septic shock. The patient will be admitted to the critical care unit. Suspect GI source for inf ectious process. We will continue general sepsis protocol. Continue IV fluids and initiate Levophed for pressure support. Continue IV antibiotics to include cefepime 2 grams q.12 hours with additiona l meropenem 1 gram IV q.8 hours and vancomycin 1 gram IV daily. Continue serial lactate trending. C onsult Pulmonary Critical Care Service. 2. Acute kidney injury. Suspect multifactorial given ongoing gastroenteritis. We will continue IV fluids as outlined previously. Avoid nephrotoxic agents and contrast media. Serial creatinine. 3. Hyperkalemia. Continue intravenous fluids as outlined previously. Avoid potassium supplementati on. Status post Kayexalate. 4. Lactic acidosis secondarily to #1. We will continue IV fluids as outlined previously. Continue serial monitoring per sepsis protocol. 5. Gastroenteritis. Question of antibiotic associated versus potential Clostridium difficile coliti s. We will check stool studies to include Clostridium difficile antigen and toxin. Check stool guai ac x3. 6. Chronic atrial fibrillation on chronic anticoagulation. We will continue Eliquis 2.5 mg b.i.d. 7. Diabetes mellitus type 2, insulin requiring. Insulin sliding scale for reflexive coverage. ADA diet when taking oral intake. 8. Prophylaxis. Sequential compression devices while in bed. Pepcid 20 mg IV q.12 hours. PT evalu ation when clinically stabilizing. 9. Code status: DO NOT INTUBATE, confirmed with the patient's daughter. Chemical code and CPR only . Surrogate medical decision maker is the patient's daughter. Total critical care time is 38 minutes.
[2017-10-06] MEDS ORDERED: Potassium Chloride 40 MEQ in Sodium Chloride 0.9% 250 ML 250 ML IVPB PRN (01:41)
[2017-10-06] MEDS ORDERED: Potassium Phosphate 15 MMOL in Sodium Chloride 0.9% 250 ML 250 ML IV PRN (01:41)
[2017-10-06] MEDS ORDERED: Potassium Phosphate 9 MMOL in Sodium Chloride 0.9% 100 ML IVPB PRN (01:41)
[2017-10-06] MEDS ORDERED: CCU ELECTROLYTE REPLACEMENT PROTOCOL FS PRN (01:41)
[2017-10-06] MEDS ORDERED: Magnesium 2 GM/NS 0.9% 100 ML 2 GM in Premix Bag 1 BAG IVPB PRN (01:41)
[2017-10-06] MEDS ORDERED: Magnesium Oxide 400 MG TAB PO PRN ×2 (01:41)
[2017-10-06] MEDS ORDERED: Potassium Chloride 40 MEQ in Premix Bag 1 BAG IVPB PRN (01:41)
[2017-10-06] MEDS ORDERED: Potassium Phosphate 12 MMOL in Sodium Chloride 0.9% 250 ML 250 ML IV PRN (01:41)
[2017-10-06] MEDS ORDERED: Potassium Chloride 20 MEQ TAB PO PRN (01:41)
--- NOTE | 2017-10-06 03:01 | CON ---
DATE OF CONSULTATION: 10/05/2017 HISTORY OF PRESENT ILLNESS: Ms. Linares is a very pleasant 82-year-old female. She was admitted with hypotension after having diarrhea for the last 3 weeks. She was hospitalized earlier in September with similar illness according to her family. She says she feels better. She has had 3 liters of saline and is off pressors now. She denies having any pain at this time. She has a history of this pain and diarrhea on her presenting illness last admission. She had an abdomen and pelvis CT that showed vascular disease and hyperdense lesion in the left kidney. No other pathology was found other than vascular calcification. PAST MEDICAL HISTORY: Remarkable for hypertension, diabetes, coronary artery disease, atrial fibrillation, lipid disorder, CVA in the past, obesity, chronic kidney disease. PAST SURGICAL HISTORY: Appendectomy and cholecystectomy. FAMILY HISTORY: Negative for lung disease in early age. SOCIAL HISTORY: She lost her several years back. She has 3 children, 2 daughters in the room with her. She does not smoke, she does not drink, does not use drugs. ALLERGIES: She has no reported drug allergies. REVIEW OF SYSTEMS: Ten-point is otherwise negative. She denies bloody diarrhea. Denies abdominal pain at this time. PHYSICAL EXAMINATION: GENERAL: She is afebrile. VITAL SIGNS: Blood pressure on arrival was 83/59 with 115 systolic when I saw her little while ago. Heart rates in the 90s, respiratory rates in the 20s. HEENT: Pupils reactive. Sclerae is anicteric. NECK: Supple. LUNGS: Clear. HEART: Regular rate and rhythm. S1 and S2 are normal. ABDOMEN: Soft. She does not have a tender abdomen. EXTREMITIES: Without asymmetry or edema. NEUROLOGIC: Grossly nonfocal. LABORATORY DATA: White count 14.4, hemoglobin 11.6, platelets 201,000. Sodium 133, potassium 6.6, chloride 102, bicarbonate of 8, BUN 40, creatinine 3.87. Creatinine was 1.27, 13 days ago. IMPRESSION: 1. Severe intravascular volume depletion likely secondary to a prolonged period of diarrhea. 2. Active urinary sediment. 3. Status post treatment for urinary tract infections multiple times recently. PLAN: Continue hydration, pressors if needed. Empiric antimicrobial therapy. We need to simplify antibiotics as soon as feasible. Gastroenterology should be consulted again her stools will be checked for Clostridium. We will suspect her potassium will come down with hydration and improvement of her renal function. I would probably avoid vancomycin for now. There is not anything to suggest that this is Staph sepsis . This is a 70 minute consult with 50% of time spent coordinating care. ROMY
[2017-10-06] MEDS: HumaLOG 300 UNITS/3 ML VIAL SC PRN (06:33)
[2017-10-06 06:46] LABS: ALT (SGPT) 9 U/L (8-55); AST (SGOT) 22 U/L (5-34); Albumin 3.4 g/dL (3.4-4.8); Alkaline Phosphatase 75 U/L (40-150); Anion Gap 20 mmol/L (10-20); BUN (Urea Nitrogen) 36 mg/dL (9.8-20.1); Bilirubin, Total 0.2 mg/dL (0.2-1.2); Calc. Creatinine Clearance 16 mL/min (70-130); Calcium 7.2 mg/dL (7.8-10.44); Carbon Dioxide 11 mmol/L (23-31); Chloride 113 mmol/L (98-107); Estimated GFR-MDRD 14; Globulin 2.3 g/dL (2.4-3.5); Glucose 238 mg/dL (83-110); Potassium 4.8 mmol/L (3.5-5.1); Protein, Total 5.7 g/dL (6.0-8.3); Sodium 139 mmol/L (136-145)
[2017-10-06 07:19] LABS: Band 14 % (5-11); Hemoglobin 10.6 g/dL (12.0-16.0); MDiff Complete? YES; Mean Corpuscular HGB CONC 32.4 g/dL (32.0-36.0); Mean Corpuscular Hemoglobin 28.9 pg (27.0-31.0); Mean Corpuscular Volume 89.1 fL (78.0-98.0); Monocytes 6 % (0-10); Neutrophil 80 % (42-75); Ovalocytes SLIGHT = 2-5 cells (100X) (0-1/hpf); PLT Morphology Comment Appears Adequate; Platelet Count 196 thou/uL (130-400); RBC Distribution Width 17.9 % (11.5-14.5); Red Blood Cell (RBC) Count 3.67 mill/uL (4.20-5.40); White Blood Cell (WBC) Count 15.6 thou/uL (4.8-10.8)
[2017-10-06] MEDS ORDERED: Vancomycin HCl 1 GM in Sodium Chloride 0.9% 250 ML 250 ML IVPB SCH (09:00)
[2017-10-06] MEDS: Ferrous Sulfate 325 MG TAB PO SCH (09:18)
--- NOTE | 2017-10-06 11:11 | PRG ---
DATE OF SERVICE: 10/06/2017 Ms. Linares says she is feeling better. She has no complaints. PHYSICAL EXAMINATION: VITAL SIGNS: Heart rate is in the 80s, blood pressure 106/49, respiratory rates in the low 20s, oxim etry is 96. LUNGS: Clear. CARDIOVASCULAR: Regular rhythm. ABDOMEN: Soft. EXTREMITIES: Without clubbing, cyanosis, or edema. She apparently had 5 bowel movements last night. LABORATORY: White count 15.6, hemoglobin 10.6, platelets 196. Sodium 139, potassium 4.8, chloride 1 13, bicarbonate 11, BUN 36, creatinine 3.21 down from 3.87. IMPRESSION: 1. Severe intravascular volume depletion. 2. Cystitis. She has had 3 urinary tract infections in the last few months, Urology should be invol jose in her care in my opinion. 3. Prolonged period of diarrhea leading to severe intravascular volume depletion. Her gastroenterol ogist should be consulted again. 4. Hyperchloremic acidosis. 5. Acute on chronic kidney disease. 6. Diabetes. 7. Lactic acidosis, resolving. 8. Hypoproteinemia, most likely related to her diarrhea, protein losses. PLAN: Continue supportive care. She is probably stable to move out of the Critical Care Unit.
--- NOTE | 2017-10-06 16:44 | PDOC.PN ---
- Subjective Encounter Start Date: 10/06/17 Encounter Start Time: 15:00 Subjective: f/u for septic shock suspected from GI/urinary source. Ucx with E. coli. -: Currently off pressor support, feeling better and less diarrhea. - Objective Resuscitation Status: Resuscitation Status DNI:No Intubation MAR Reviewed: Yes Vital Signs & Weight: Vital Signs (12 hours) Temp Pulse Resp Pulse Ox 10/06/17 12:00 99.3 F 10/06/17 08:00 98.1 F 76 21 H 95 10/06/17 07:00 98.1 F 10/06/17 06:00 98.8 F Weight Weight 166 lb 7.184 oz Most Recent Monitor Data Heart Rate from ECG 90 NIBP 125/69 NIBP BP-Mean 97 Respiration from ECG 21 SpO2 98 I&O: 10/05/17 10/06/17 10/07/17 06:59 06:59 06:59 Intake Total 3964 30 Output Total 525 210 Balance 3439 -180 Result Diagrams: 10/06/17 05:10 10/06/17 05:10 Additional Labs: Accuchecks 10/06/17 10/06/17 10/06/17 12:28 05:12 00:08 POC Glucose 121 H 225 H 248 H Microbiology 10/05/17 19:30 Misc: See comments Stool Lactoferrin - Final 10/05/17 19:30 Misc: See comments Stool Occult Blood (RICK) - Final 10/05/17 12:33 Venous blood - Left Arm Blood Culture - Preliminary Specimen has been received and culture in progress. No Growth to date. 10/05/17 12:00 Urine Straight Catheter Urine Culture - Preliminary Presumptive Escherichia coli Laboratory Tests 10/05/17 10/05/17 10/05/17 11:35 11:35 12:42 WBC 14.4 H Neutrophils % (Manual) 77 H Band Neuts % (Manual) 12 H Potassium 6.6 H* Creatinine 3.87 H Lactic Acid 8.1 H* Cortisol 10/05/17 10/05/17 10/06/17 17:14 Unknown 00:07 WBC Neutrophils % (Manual) Band Neuts % (Manual) Potassium Creatinine Lactic Acid 6.5 H* 6.3 H* 3.6 H Cortisol 10/06/17 10/06/17 05:10 05:10 WBC Neutrophils % (Manual) Band Neuts % (Manual) 14 H Potassium Creatinine Lactic Acid Cortisol 24.90 EKG Reviewed by me: Yes (Tele - SR in 80's) Phys Exam - Physical Examination Constitutional: NAD HEENT: PERRLA, sclera anicteric, oral pharynx no lesions Neck: no nodes, no JVD, supple, full ROM Respiratory: no wheezing, no rales, no rhonchi, clear to auscultation bilateral S1, S2 Cardiovascular: RRR, no significant murmur, no rub, gallop mild TTP in LUQ Gastrointestinal: soft, no distention, positive bowel sounds Musculoskeletal: no edema, pulses present Neurological: normal sensation, moves all 4 limbs Skin: no rash, normal turgor, cap refill <2 seconds Deviation from normal: García with clear urine, some sediment Dx/Plan (1) Septic shock Code(s): A41.9 - SEPSIS, UNSPECIFIED ORGANISM; R65.21 - SEVERE SEPSIS WITH SEPTIC SHOCK Status: Acute Comment: Improved, off Levophed currently, serial monitoring, IVF's (2) NALINI (acute kidney injury) Code(s): N17.9 - ACUTE KIDNEY FAILURE, UNSPECIFIED Status: Acute Comment: Improved with tx for underlying dehydration and infection, avoid nephrotoxic meds and limit contrast exposure (3) Hyperkalemia Code(s): E87.5 - HYPERKALEMIA Status: Acute Comment: Resolved, serial monitoring, secondary to NALINI (4) Gastroenteritis, infectious, presumed Code(s): K52.9 - NONINFECTIVE GASTROENTERITIS AND COLITIS, UNSPECIFIED Status : Acute Comment: Await final cx results, continue Meropenem (5) E. coli UTI Code(s): N39.0 - URINARY TRACT INFECTION, SITE NOT SPECIFIED; B96.20 - UNSP ESCHERICHIA COLI THE CAUSE OF DISEASES CLASSD ELSWHR Status: Acute Comment: E. coli initially, continue Cefepime pending final identification (6) Dehydration Code(s): E86.0 - DEHYDRATION Status: Acute Comment: Improved, continue IVF's , encourage po intake (7) Lactic acidosis Code(s): E87.2 - ACIDOSIS Status: Acute Comment: Improving with abx therapy and IVF's - Plan continue antibiotics, PT/OT, sr. social media & mobile manager, DVT proph w/SCDs Continue IVF's -: Continue Cefepime and Meropenem pending final cx results -: Consult GI service given longstanding diarrhea -: Hold Eliquis -: AM lab: CMP, CBC * .
[2017-10-06] MEDS ORDERED: Famotidine 20 MG TAB PO SCH (21:00)
[2017-10-06] MEDS: Cefepime 1 GM in Sodium Chloride 0.9% 100 ML IVPB SCH (21:14)
[2017-10-06] MEDS: Famotidine 20 MG TAB PO SCH (21:15)
--- NOTE | 2017-10-06 23:31 | CON ---
DATE OF CONSULTATION: 10/07/2017 GI INPATIENT CONSULTATION NOTE REQUESTING PHYSICIAN: Dr. Henderson. REASON FOR CONSULTATION: Chronic diarrhea. HISTORY OF PRESENT ILLNESS: Diane Linares is an 82-year-old woman previously seen by my colleagu e, Dr. Austin Hammonds back in 2013. She had an EGD showing erosive gastritis and a normal colonoscopy. She has had issues with chronic urinary tract infections and has been on a lot of antibiotics recentl y. She was in the hospital just a couple of weeks ago and seen by my colleague, Dr. Elias. He consu lted on her for epigastric pain and diarrhea that has been going on for 1-2 weeks. At that point, alicia had had a CT scan which was unremarkable. Stool studies at that time were negative for pathogens i ncluding C. difficile and Campylobacter. However, her pain seemed to improve along with her diarrhea , and no endoscopic studies were performed. Now, she was readmitted to the hospital yesterday looking septic with tachycardia and hypotension. T his is in the context of continued diarrhea over the past 2-3 weeks at least. Getting history from t he patient is difficult, but evidently, she has had multiple loose, nonbloody bowel movements every d ay and declining p.o. intake as well. She received aggressive IV fluid resuscitation and was actuall y on pressors for a while, she was started on empiric antibiotics. It appears she has a presumptive Escherichia coli urinary tract infection. She had a lot of loose bowel movements yesterday and evide ntly had 5 large loose bowel movements overnight, though per nursing staff over the course of all day today, she has had no further bowel movements and have actually been unable to collect stool for C. difficile. The patient herself is not reporting any abdominal pain. She is on clear liquid diet and oral intake has been minimal. REVIEW OF SYSTEMS: Full review of systems including constitutional, head, eyes, ears, nose, throat, GI, , cardiovascular, respiratory, musculoskeletal, and neurologic systems is negative except as no ivon in the HPI. PAST MEDICAL HISTORY: Atrial fibrillation on chronic anticoagulation with Eliquis, coronary artery d isease, diabetes type 2 requiring insulin, hypertension, hyperlipidemia, recurrent urinary tract infe ctions, history of CVA, chronic kidney disease stage 3, appendectomy, cholecystectomy. OUTPATIENT MEDICATIONS: Tramadol, metformin, aspirin 81 mg daily, clonidine, Lasix, hydralazine, iro n 65 mg daily, lisinopril, Antivert, metformin, metoprolol, Protonix 40 mg daily, ropinirole, sertral ine, Zanaflex, insulin. ALLERGIES: No known drug allergies. INPATIENT MEDICATIONS: Pepcid, ferrous sulfate, insulin, Humalog, meropenem IV, Zoloft, tramadol. FAMILY HISTORY: Noncontributory. SOCIAL HISTORY: The patient is with 3 children. She resides in [place], [place]. No alcohol, tobacco or drug use. PHYSICAL EXAMINATION: VITAL SIGNS: Temperature 98.7, heart rate 87, blood pressure 143/70, 98% oxygen saturation on room a ir. GENERAL: An 82-year-old woman sitting up in bed comfortably, somnolent but easily arousable risk. R esponds to questions in the affirmative for negative, but unable to give me details about her recent history. EYES: No scleral icterus. Extraocular movements intact. ENT: Mucous membranes moist, no oral lesions. LYMPH: No submandibular or supraclavicular lymphadenopathy. SKIN: No jaundice, no rashes were palpable. HEART: Regular rate and rhythm. LUNGS: Clear to auscultation bilaterally. ABDOMEN: She is obese, bowel sounds present, soft. She is nontender to palpation throughout the abd omen. No guarding or rebound tenderness. EXTREMITIES: Trace pretibial edema bilaterally. NEUROLOGIC: Cranial nerves II-XII intact bilaterally. No focal deficits. LABORATORY STUDIES: WBC 15.6, hemoglobin 10.6, platelets 196. Sodium 139, potassium 4.8, BUN 36, cr eatinine 3.21, glucose 124, calcium 7.2, alkaline phosphatase 75, AST 22, ALT 9, albumin 3.4. Cortis ol 24.9. Urinalysis shows greater than 50 WBCs and large leukocyte esterase. Urine culture is alrea dy growing presumptive E. coli. Blood culture shows no growth to date. Fecal lactoferrin is elevate d and stool occult blood is positive. IMAGING STUDIES: Chest x-ray on admission yesterday demonstrated cardiomegaly and interval improveme nt in right lower lobe density. CT of the abdomen and pelvis from prior admission on 09/20/2017 show ed no evidence of free air or bowel obstruction. There is a small hyperdense lesion in the lower bradley e of the left kidney. There are cholecystectomy clips, atrophy of the pancreas, normal appearing gwen er and spleen. No evidence of any bowel inflammatory change at that time. ASSESSMENT AND PLAN: 1. Chronic diarrhea, now greater than 3 weeks, in the context of multiple rounds of antibiotics rece ntly for urinary tract infections. 2. Dehydration, now resolved with supportive care over the past day. The patient has actually not h ad any further diarrhea over the course of today per nursing staff, but this has evidently been a sig nificant problem for the past month or so. This is in the context of a lot of antibiotics for urinar y tract infections. I do note that C. difficile and other stool studies for enteric pathogens were n egative during her prior admission. I note the elevated fecal lactoferrin, which is nonspecific. I do think C. difficile should certainly be rechecked along with other stool studies at this time. We are awaiting those results. I think she would probably benefit from being on a probiotic through thi s time, so I have ordered Florastor. I am not sure repeat colonoscopy is indicated at this time, as her last colonoscopy was normal, just 4 years ago. However, if the stool studies are all negative fo r pathogens and diarrhea is persistent, colonoscopy could certainly be considered. Thank you for the consultation. GI will follow along.
[2017-10-07 05:08] LABS: Hemoglobin 10.8 g/dL (12.0-16.0); Hypochromia SLIGHT = 6-15 cells (100X) (0-5/hpf); Lymphocytes 2 % (21-51); MDiff Complete? YES; Mean Corpuscular HGB CONC 32.7 g/dL (32.0-36.0); Mean Corpuscular Volume 88.9 fL (78.0-98.0); Mean Platelet Volume 8.8 fL (7.4-10.4); Monocytes 3 % (0-10); Neutrophil 94 % (42-75); PLT Morphology Comment Appears Adequate; Platelet Count 152 thou/uL (130-400); RBC Distribution Width 17.9 % (11.5-14.5); Reactive Lymphocytes 1 % (0-10); Red Blood Cell (RBC) Count 3.73 mill/uL (4.20-5.40); White Blood Cell (WBC) Count 10.7 thou/uL (4.8-10.8)
[2017-10-07 05:12] LABS: ALT (SGPT) 9 U/L (8-55); AST (SGOT) 25 U/L (5-34); Albumin 3.2 g/dL (3.4-4.8); Alkaline Phosphatase 72 U/L (40-150); Anion Gap 15 mmol/L (10-20); BUN (Urea Nitrogen) 39 mg/dL (9.8-20.1); Bilirubin, Total 0.3 mg/dL (0.2-1.2); Calc. Creatinine Clearance 16 mL/min (70-130); Calcium 7.5 mg/dL (7.8-10.44); Carbon Dioxide 15 mmol/L (23-31); Chloride 115 mmol/L (98-107); Estimated GFR-MDRD 14; Globulin 2.1 g/dL (2.4-3.5); Glucose 165 mg/dL (83-110); Potassium 3.9 mmol/L (3.5-5.1); Protein, Total 5.3 g/dL (6.0-8.3); Sodium 141 mmol/L (136-145)
[2017-10-07] MEDS: Ferrous Sulfate 325 MG TAB PO SCH (08:16)
[2017-10-07] MEDS: Apixaban 2.5 MG TAB PO SCH ×2 (08:16→20:43)
[2017-10-07] MEDS: traMADol HCl 50 MG TAB PO SCH (08:16)
[2017-10-07] MEDS: Saccharomyces boulardii 250 MG CAP PO SCH (08:18)
[2017-10-07] MEDS: Meropenem 500 MG in Sodium Chloride 0.9% 100 ML IVPB SCH (09:25)
[2017-10-07] MEDS ORDERED: Sodium Chloride 0.65% Nasal 44 ML BOT EA NARE PRN (10:47)
[2017-10-07] MEDS ORDERED: Artificial Tears 18 DROP/0.9 ML EA EYE PRN (10:47)
[2017-10-07] MEDS ORDERED: Meclizine HCl 12.5 MG TAB PO PRN (10:47)
[2017-10-07] MEDS: HumaLOG 300 UNITS/3 ML VIAL SC PRN (10:47)
[2017-10-07] MEDS ORDERED: Calcium Carbonate 500 MG ChewTAB PO PRN (10:47)
[2017-10-07] MEDS ORDERED: Dextrose 5% in Water 1,000 ML IV PRN (10:47)
[2017-10-07] MEDS ORDERED: Diphenoxylate HCl/Atropine Tablet PO PRN (10:47)
[2017-10-07] MEDS ORDERED: Ondansetron HCl/PF 4 MG/2 ML Vial IVP PRN (10:47)
[2017-10-07] MEDS ORDERED: hydrALAZINE 20 MG/ML VIAL SLOW IVP PRN (10:47)
[2017-10-07] MEDS ORDERED: Ondansetron ODT 4 MG TAB PO PRN (10:47)
[2017-10-07] MEDS ORDERED: HumaLOG 300 UNITS/3 ML VIAL SC PRN (10:47)
[2017-10-07] MEDS ORDERED: Diabetic Tussin 200 MG/10 ML UDCUP PO PRN (10:47)
[2017-10-07] MEDS ORDERED: Chloraseptic Spray 180 ml Bottle PO PRN (10:47)
[2017-10-07] MEDS ORDERED: HYDROcodone/Acetaminophen 5/325 mg Tablet PO PRN (10:47)
[2017-10-07] MEDS ORDERED: Loratadine 10 MG TAB PO PRN (10:47)
[2017-10-07] MEDS ORDERED: Milk Of Magnesia 30 ML UDCUP PO PRN (10:47)
[2017-10-07] MEDS ORDERED: Temazepam 15 MG CAP PO PRN (10:47)
[2017-10-07] MEDS ORDERED: Eucerin (Mineral Oil/Petrolatum,White) 30 gm Jar TOP PRN (10:47)
--- NOTE | 2017-10-07 11:50 | PDOC.PN ---
- Subjective Encounter Start Date: 10/07/17 Encounter Start Time: 09:40 -: old records requested/rev Patient seen and examined. No new complaints. No overnight events - Objective Resuscitation Status: Resuscitation Status DNI:No Intubation MAR Reviewed: Yes Vital Signs & Weight: Vital Signs (12 hours) Temp Pulse Resp Pulse Ox 10/07/17 10:58 98.6 F 10/07/17 07:14 98.6 F 97 19 100 10/07/17 07:00 98.6 F 10/07/17 04:00 97.8 F 10/07/17 00:00 98.4 F Weight Weight 166 lb 7.184 oz Most Recent Monitor Data Heart Rate from ECG 98 NIBP 168/80 NIBP BP-Mean 96 Respiration from ECG 19 SpO2 98 I&O: 10/06/17 10/07/17 10/08/17 06:59 06:59 06:59 Intake Total 3964 1035 580 Output Total 525 683 185 Balance 3439 352 395 Result Diagrams: 10/07/17 04:20 10/07/17 04:20 Additional Labs: Accuchecks 10/07/17 10/07/17 10/06/17 10:45 06:25 21:14 POC Glucose 184 H 149 H 140 H 10/06/17 10/06/17 17:16 12:28 POC Glucose 124 H 121 H Phys Exam - Physical Examination Constitutional: NAD HEENT: PERRLA, moist MMs, sclera anicteric Neck: no JVD, supple Respiratory: no wheezing, no rales, no rhonchi Cardiovascular: RRR, no significant murmur, no rub Gastrointestinal: soft, non-tender, no distention, positive bowel sounds Musculoskeletal: no edema, pulses present Neurological: non-focal, normal sensation Lymphatic: no nodes Psychiatric: normal affect, A&O x 3 Skin: no rash, normal turgor Dx/Plan (1) Acute worsening of stage 3 chronic kidney disease Code(s): N18.3 - CHRONIC KIDNEY DISEASE, STAGE 3 (MODERATE) Status: Acute (2) Chronic diarrhea Code(s): K52.9 - NONINFECTIVE GASTROENTERITIS AND COLITIS, UNSPECIFIED Status : Acute (3) Dehydration Code(s): E86.0 - DEHYDRATION Status: Resolved Comment: (4) E. coli UTI Code(s): N39.0 - URINARY TRACT INFECTION, SITE NOT SPECIFIED; B96.20 - UNSP ESCHERICHIA COLI THE CAUSE OF DISEASES CLASSD ELSWHR Status: Acute Comment: (5) Gastroenteritis, infectious, presumed Code(s): K52.9 - NONINFECTIVE GASTROENTERITIS AND COLITIS, UNSPECIFIED Status : Acute Comment: (6) Hyperchloremic acidosis Code(s): E87.2 - ACIDOSIS Status: Acute (7) Hyperkalemia Code(s): E87.5 - HYPERKALEMIA Status: Resolved (8) Lactic acidosis Code(s): E87.2 - ACIDOSIS Status: Acute Comment: (9) Septic shock Code(s): A41.9 - SEPSIS, UNSPECIFIED ORGANISM; R65.21 - SEVERE SEPSIS WITH SEPTIC SHOCK Status: Resolved Comment: (10) Anemia, normocytic normochromic Code(s): D64.9 - ANEMIA, UNSPECIFIED Status: Chronic (11) Atrial fibrillation Code(s): I48.91 - UNSPECIFIED ATRIAL FIBRILLATION Status: Chronic (12) Dyslipidemia Code(s): E78.5 - HYPERLIPIDEMIA, UNSPECIFIED Status: Chronic (13) Hypertension Code(s): I10 - ESSENTIAL (PRIMARY) HYPERTENSION Status: Chronic (14) Obesity (BMI 30.0-34.9) Code(s): E66.9 - OBESITY, UNSPECIFIED Status: Chronic - Plan cont current plan of care, plan discussed w/ family * continue following medication * symptomatic treatment as below * transfer to medical * continue cefepime * dc meropenam * dc IVF * start amlodipine and toprol xl * discussed with pt with help of interpreter for the deaf * discussed with family * continue PT Review of Systems - Review of Systems Eyes: negative: Pain, Vision Change, Conjunctivae Inflammation, Eyelid Inflammation, Redness, Other ENT: negative: Ear Pain, Ear Discharge, Nose Pain, Nose Discharge, Nose Congestion, Mouth Pain, Mouth Swelling, Throat Pain, Throat Swelling, Other Respiratory: negative: Cough, Dry, Shortness of Breath, Hemoptysis, SOB with Excertion, Pleuritic Pain, Sputum, Wheezing Cardiovascular: negative: chest pain, palpitations, orthopnea, paroxysmal nocturnal dyspnea, edema, light headedness, other Gastrointestinal: negative: Nausea, Vomiting, Abdominal Pain, Diarrhea, Constipation, Melena, Hematochezia, Other Genitourinary: negative: Dysuria, Frequency, Incontinence, Hematuria, Retention , Other Musculoskeletal: negative: Neck Pain, Shoulder Pain, Arm Pain, Back Pain, Hand Pain, Leg Pain, Foot Pain, Other Skin: negative: Rash, Lesions, Edgar, Bruising, Other - Medications/Allergies Allergies/Adverse Reactions: Allergies Allergy/AdvReac Type Severity Reaction Status Date / Time No Known Allergies Allergy Verified 07/22/17 21:46 Medications: Current Medications Acetaminophen (Tylenol) 650 mg PO Q4H PRN PRN Reason: Headache/Fever or Mild Pain Hydrocodone Bitart/Acetaminophen ([place] 5/325) 1 tab PO Q4H PRN PRN Reason: Moderate Pain (4-6) Amlodipine Besylate (Norvasc) 10 mg PO DAILY REPLACED BY [facility] Apixaban (Eliquis) 2.5 mg PO BID REPLACED BY [facility] Last Admin: 10/07/17 08:16 Dose: 2.5 mg Artificial Tears (Tears Naturale) 0 drop EA EYE PRN PRN PRN Reason: Dry Eyes Aspirin (Aspirin Chewable) 81 mg PO DAILY REPLACED BY [facility] Calcium Carbonate (Tums) 1,000 mg PO Q4H PRN PRN Reason: Heartburn or Indigestion Dextrose/Water (Dextrose 50%) 25 gm SLOW IVP PRN PRN PRN Reason: Hypoglycemia Diphenoxylate HCl/Atropine (Lomotil) 1 tab PO QIDPRN PRN PRN Reason: Diarrhea/Loose Stools Famotidine (Pepcid) 20 mg PO 2100 REPLACED BY [facility] Last Admin: 10/06/17 21:15 Dose: 20 mg Ferrous Sulfate (Feosol) 325 mg PO DAILY REPLACED BY [facility] Last Admin: 10/07/17 08:16 Dose: 325 mg Glucagon (Glucagon) 1 mg IM PRN PRN PRN Reason: Hypoglycemia Guaifenesin (Robitussin Sf) 200 mg PO Q4H PRN PRN Reason: Cough Hydralazine HCl (Apresoline) 10 mg SLOW IVP Q4H PRN PRN Reason: Systolic BP > 180 Cefepime HCl 1 gm/ Sodium (Chloride) 100 mls @ 200 mls/hr IVPB Q24HR REPLACED BY [facility] Last Admin: 10/06/17 21:14 Dose: 100 mls Dextrose/Water (D5w) 1,000 mls @ 0 mls/hr IV .Q0M PRN PRN Reason: Hypoglycemia Insulin Human Isoph/Insulin Regular (Humulin 70/30) 25 units SC QAM REPLACED BY [facility] Insulin Human Lispro (Humalog) 0 units SC .MODERATE SLIDING SC PRN PRN Reason: Moderate Correctional Scale Insulin Human Lispro (Humalog) 0 units SC .BEDTIME SLIDING SC PRN PRN Reason: Bedtime Correctional Scale Loratadine (Claritin) 10 mg PO DAILYPRN PRN PRN Reason: Sinus Symptoms Magnesium Hydroxide (Milk Of Magnesium) 30 ml PO DAILYPRN PRN PRN Reason: Constipation Meclizine HCl (Antivert) 12.5 mg PO DAILYPRN PRN PRN Reason: Dizziness Metoprolol Succinate (Toprol Xl) 25 mg PO DAILY REPLACED BY [facility] Mineral Oil/White Petrolatum (Eucerin Cream) 0 gm TOP BIDPRN PRN PRN Reason: Dry Skin Ondansetron HCl (Zofran Odt) 4 mg PO Q6H PRN PRN Reason: Nausea/Vomiting Ondansetron HCl (Zofran) 4 mg IVP Q6H PRN PRN Reason: Nausea/Vomiting Phenol (Chloraseptic [place] 180 Ml Bot) 0 ml PO PRN PRN PRN Reason: Sore Throat Ropinirole HCl (Requip) 0.5 mg PO QPM REPLACED BY [facility] Rosuvastatin Calcium (Crestor) 5 mg PO DAILY REPLACED BY [facility] Saccharomyces Boulardii (Florastor) 250 mg PO DAILY REPLACED BY [facility] Last Admin: 10/07/17 08:18 Dose: 250 mg Sertraline HCl (Zoloft) 50 mg PO DAILY REPLACED BY [facility] Last Admin: 10/07/17 08:17 Dose: 50 mg Sodium Chloride ([place] Nasal [place] 0.65%) 0 ml EA NARE QIDPRN PRN PRN Reason: Nasal Congestion Temazepam (Restoril) 15 mg PO HSPRN PRN PRN Reason: Insomnia
--- NOTE | 2017-10-07 12:57 | EKG ---
Test Reason : Blood Pressure : / mmHG Vent. Rate : 062 BPM Atrial Rate : 062 BPM P-R Int : 430 ms QRS Dur : 088 ms QT Int : 500 ms P-R-T Axes : 064 078 202 degrees QTc Int : 507 ms Sinus rhythm with marked sinus arrhythmia with 1st degree A-V block with junctional escape complexes Septal infarct , age undetermined Prolonged QT Abnormal ECG Confirmed by FIDELIA MOSLEY MD ([id number]), scientific publications editor TE AYALA ([id number]) on 10/07/2017 12:56:52 PM Referred By: Confirmed By:FIDELIA MOSLEY MD
--- NOTE | 2017-10-07 13:00 | EKG ---
Test Reason : Blood Pressure : / mmHG Vent. Rate : 061 BPM Atrial Rate : 078 BPM P-R Int : 000 ms QRS Dur : 092 ms QT Int : 460 ms P-R-T Axes : 000 069 223 degrees QTc Int : 463 ms Poor data quality, interpretation may be adversely affected Undetermined rhythm Abnormal ECG Similar to prior 25-SEP-2017 Confirmed by FIDELIA MOSLEY MD ([id number]), school photograph editor TE AYALA ([id number]) on 10/07/2017 12:59:59 PM Referred By: Confirmed By:FIDELIA MOSLEY MD
--- NOTE | 2017-10-07 17:31 | PRG ---
DATE OF SERVICE: 10/07/2017 SUBJECTIVE: Ms. Linares remains stable. She is reportedly intermittently confused per family. OBJECTIVE: VITAL SIGNS: She is afebrile, heart rate 96, respiratory rate 18, oximetry is 94 on 2 liters, blood pressure 120/72. LUNGS: Clear. HEART: Regular rhythm. ABDOMEN: Soft and nontender. EXTREMITIES: Without clubbing, cyanosis, or edema. NEUROLOGIC: Grossly nonfocal. LABORATORY DATA: White count 10.7, hemoglobin 10.8, platelets 152. Sodium 141, potassium 3.9, chloride 115, bicarbonate 15, BUN 39, creatinine 3.17. IMPRESSION: 1. Acute on chronic renal dysfunction secondary to intravascular volume depletion. Her cultures all remain normal with the exception of a urinary pathogen Escherichia coli. 2. Frequent urinary tract infections. She probably needs to be evaluated by urologist at some point. 3. Diarrhea. Currently being followed by Gastroenterology. 4. Obesity and deconditioning. 5. Mild encephalopathy, possibly and most likely related to be in the Critical Care Unit. 6. Hyperchloremic metabolic acidosis. She probably needs more free water intravenously. She is not taking in enough by mouth, not to be hydrating her In my opinion,. She is stable to move out of the Critical Care Unit. ROMY
--- NOTE | 2017-10-07 18:51 | PRG ---
DATE OF SERVICE: 10/07/2017 SUBJECTIVE: The patient has benign bowel movements today. According to family members, she is sligh tly confused. She has not eaten very much. She denies any abdominal pain. She is slightly nauseate d. OBJECTIVE: VITAL SIGNS: Temperature 97.6, pulse 95, respiratory rate 18, blood pressure 147/78. CHEST: Clear. CARDIOVASCULAR: Regular rate and rhythm. ABDOMEN: Soft, nontender, without organomegaly or masses. LABORATORY DATA: Shows a white blood cell count of 10.7, hemoglobin 10.8, hematocrit 33.2, CO2 is 15 , chloride 115, BUN 39, creatinine 3.17, glucose 165. LABORATORY DATA: Stool for C. diff was negative. Stool for lactoferrin was positive and stool occul t blood was positive. According to medical records, patient has not had any bowel movements today. ASSESSMENT: 1. Chronic diarrhea - no bowel movements today. The patient was C. diff negative. 2. Heme positive stool - patient is on Eliquis. 3. Renal insufficiency. 4. Urinary tract infection. 5. Anemia. 6. Atrial fibrillation. RECOMMENDATIONS: 1. Continue to monitor stool output. 2. Considering she was on antibiotics, not unusual to have diarrhea. 3. We will follow with you.
[2017-10-07] MEDS: Famotidine 20 MG TAB PO SCH (20:43)
[2017-10-07] MEDS: rOPINIRole HCl 0.5 MG TAB PO SCH (20:44)
[2017-10-07] MEDS: Cefepime 1 GM in Sodium Chloride 0.9% 100 ML IVPB SCH (20:49)
[2017-10-08 05:16] LABS: ALT (SGPT) Less than 7 U/L (8-55); AST (SGOT) 14 U/L (5-34); Albumin 2.9 g/dL (3.4-4.8); Alkaline Phosphatase 66 U/L (40-150); Anion Gap 13 mmol/L (10-20); BUN (Urea Nitrogen) 43 mg/dL (9.8-20.1); Bilirubin, Total 0.2 mg/dL (0.2-1.2); Calc. Creatinine Clearance 17 mL/min (70-130); Calcium 7.6 mg/dL (7.8-10.44); Carbon Dioxide 17 mmol/L (23-31); Chloride 114 mmol/L (98-107); Estimated GFR-MDRD 15; Globulin 2.1 g/dL (2.4-3.5); Glucose 148 mg/dL (83-110); Potassium 3.7 mmol/L (3.5-5.1); Sodium 140 mmol/L (136-145)
[2017-10-08 05:55] LABS: Band 17 % (5-11); Eosinophils 2 % (0-10); Hemoglobin 10.8 g/dL (12.0-16.0); Lymphocytes 4 % (21-51); MDiff Complete? YES; Mean Corpuscular HGB CONC 33.4 g/dL (32.0-36.0); Mean Corpuscular Hemoglobin 29.4 pg (27.0-31.0); Mean Corpuscular Volume 87.8 fL (78.0-98.0); Monocytes 7 % (0-10); Neutrophil 70 % (42-75); Platelet Count 148 thou/uL (130-400); RBC Distribution Width 17.8 % (11.5-14.5); Red Blood Cell (RBC) Count 3.68 mill/uL (4.20-5.40); White Blood Cell (WBC) Count 8.6 thou/uL (4.8-10.8)
[2017-10-08] MEDS: Saccharomyces boulardii 250 MG CAP PO SCH (08:09)
[2017-10-08] MEDS: Amlodipine 10 MG TAB PO SCH (08:10)
[2017-10-08] MEDS: Ferrous Sulfate 325 MG TAB PO SCH (08:10)
[2017-10-08] MEDS: Rosuvastatin 5 MG TAB PO SCH (08:15)
[2017-10-08] MEDS: Apixaban 2.5 MG TAB PO SCH ×2 (08:21→20:01)
[2017-10-08] MEDS ORDERED: Insulin NPH/Reg Insulin Hm 300 UNITS/3 ML VIAL SC SCH (09:00)
[2017-10-08] MEDS: Sodium Bicarbonate Tab 325 MG TAB PO SCH ×2 (09:40→20:01)
--- NOTE | 2017-10-08 11:08 | PRG ---
DATE OF SERVICE: 10/08/2017 SUBJECTIVE: The patient is eating well. She ate approximately 50% of her breakfast. She denies any abdominal pain. She has had no bowel movements today. She had 1 bowel movement yesterday. OBJECTIVE: VITAL SIGNS: Temperature 98.2, pulse 103, respiratory rate 18, blood pressure 167/88. CHEST: Clear. CARDIOVASCULAR: Regular rate and rhythm. ABDOMEN: Soft, nontender, without organomegaly or masses. LABORATORY DATA: Shows hemoglobin stable at 10.8. Chemistries significant for BUN 43, creatinine 2. 96, glucose 148. ASSESSMENT: 1. Probable antibiotic associated diarrhea - the patient has had no diarrhea in the hospital. 2. Heme positive stools. 3. Renal insufficiency. 4. Urinary tract infection. 5. Anemia - stable. 6. Atrial fibrillation on anticoagulation. RECOMMENDATIONS: Continue to monitor stool output.
--- NOTE | 2017-10-08 12:51 | PDOC.PN ---
- Subjective Encounter Start Date: 10/08/17 Encounter Start Time: 09:45 pt's daughter bedside and she reports that pt is confused and weak, no fever - Objective Resuscitation Status: Resuscitation Status DNI:No Intubation MAR Reviewed: Yes Vital Signs & Weight: Vital Signs (12 hours) Temp Pulse Resp BP Pulse Ox 10/08/17 08:10 103 H 10/08/17 08:00 98.2 F 103 H 18 167/88 H 95 10/08/17 05:15 98.2 F 89 18 127/75 100 Weight Weight 166 lb 7.184 oz Most Recent Monitor Data Heart Rate from ECG 98 NIBP 131/63 NIBP BP-Mean 96 Respiration from ECG 17 SpO2 98 I&O: 10/07/17 10/08/17 10/09/17 06:59 06:59 06:59 Intake Total 1035 1471 240 Output Total 683 835 Balance 352 636 240 Result Diagrams: 10/08/17 03:45 10/08/17 03:45 Additional Labs: Accuchecks 10/08/17 10/08/17 10/07/17 11:58 05:06 16:59 POC Glucose 164 H 142 H 119 H Phys Exam - Physical Examination Constitutional: NAD HEENT: PERRLA, moist MMs, sclera anicteric Neck: no JVD, supple Respiratory: no wheezing, no rales, no rhonchi Cardiovascular: no significant murmur, no rub, irregular Gastrointestinal: soft, non-tender, no distention, positive bowel sounds Musculoskeletal: no edema, pulses present Neurological: moves all 4 limbs Lymphatic: no nodes Psychiatric: normal affect Skin: no rash, normal turgor Dx/Plan (1) Acute worsening of stage 3 chronic kidney disease Code(s): N18.3 - CHRONIC KIDNEY DISEASE, STAGE 3 (MODERATE) Status: Acute (2) Chronic diarrhea Code(s): K52.9 - NONINFECTIVE GASTROENTERITIS AND COLITIS, UNSPECIFIED Status : Acute (3) Dehydration Code(s): E86.0 - DEHYDRATION Status: Resolved Comment: (4) E. coli UTI Code(s): N39.0 - URINARY TRACT INFECTION, SITE NOT SPECIFIED; B96.20 - UNSP ESCHERICHIA COLI THE CAUSE OF DISEASES CLASSD ELSWHR Status: Acute Comment: (5) Gastroenteritis, infectious, presumed Code(s): K52.9 - NONINFECTIVE GASTROENTERITIS AND COLITIS, UNSPECIFIED Status : Acute Comment: (6) Hyperchloremic acidosis Code(s): E87.2 - ACIDOSIS Status: Acute (7) Hyperkalemia Code(s): E87.5 - HYPERKALEMIA Status: Resolved (8) Lactic acidosis Code(s): E87.2 - ACIDOSIS Status: Acute Comment: (9) Septic shock Code(s): A41.9 - SEPSIS, UNSPECIFIED ORGANISM; R65.21 - SEVERE SEPSIS WITH SEPTIC SHOCK Status: Resolved Comment: (10) Anemia, normocytic normochromic Code(s): D64.9 - ANEMIA, UNSPECIFIED Status: Chronic (11) Atrial fibrillation Code(s): I48.91 - UNSPECIFIED ATRIAL FIBRILLATION Status: Chronic (12) Dyslipidemia Code(s): E78.5 - HYPERLIPIDEMIA, UNSPECIFIED Status: Chronic (13) Hypertension Code(s): I10 - ESSENTIAL (PRIMARY) HYPERTENSION Status: Chronic (14) Obesity (BMI 30.0-34.9) Code(s): E66.9 - OBESITY, UNSPECIFIED Status: Chronic - Plan cont current plan of care, plan discussed w/ family, continue antibiotics, PT/OT , psych social worker * DC perez catheter * check bladder scan several times to rule out any retention * outpt urology follow up * no further diarrhea and and no work up planned as per GI. * her confusion is related with metabolic and sepsis related, does not have focal deficit, expecting to improve with time * will need placement * continue PT * discussed with daughter bedside * continue cefepime for now * renal function continue to improve * add sodium bicarbonate po Review of Systems - Review of Systems Constitutional: weakness. negative: fever, chills, sweats, malaise, other ENT: negative: Ear Pain, Ear Discharge, Nose Pain, Nose Discharge, Nose Congestion, Mouth Pain, Mouth Swelling, Throat Pain, Throat Swelling, Other Respiratory: negative: Cough, Dry, Shortness of Breath, Hemoptysis, SOB with Excertion, Pleuritic Pain, Sputum, Wheezing Cardiovascular: negative: chest pain, palpitations, orthopnea, paroxysmal nocturnal dyspnea, edema, light headedness, other Gastrointestinal: negative: Nausea, Vomiting, Abdominal Pain, Diarrhea, Constipation, Melena, Hematochezia, Other Genitourinary: negative: Dysuria, Frequency, Incontinence, Hematuria, Retention , Other Musculoskeletal: negative: Neck Pain, Shoulder Pain, Arm Pain, Back Pain, Hand Pain, Leg Pain, Foot Pain, Other Skin: negative: Rash, Lesions, Edgar, Bruising, Other Neurological: Confusion. negative: Weakness, Numbness, Incoordination, Change in Speech, Seizures, Other - Medications/Allergies Allergies/Adverse Reactions: Allergies Allergy/AdvReac Type Severity Reaction Status Date / Time No Known Allergies Allergy Verified 07/22/17 21:46 Medications: Current Medications Acetaminophen (Tylenol) 650 mg PO Q4H PRN PRN Reason: Headache/Fever or Mild Pain Hydrocodone Bitart/Acetaminophen ([place] 5/325) 1 tab PO Q4H PRN PRN Reason: Moderate Pain (4-6) Last Admin: 10/07/17 16:53 Dose: 1 tab Amlodipine Besylate (Norvasc) 10 mg PO DAILY [facility] Last Admin: 10/08/17 08:10 Dose: 10 mg Apixaban (Eliquis) 2.5 mg PO BID [facility] Last Admin: 10/08/17 08:21 Dose: 2.5 mg Artificial Tears (Tears Naturale) 0 drop EA EYE PRN PRN PRN Reason: Dry Eyes Aspirin (Aspirin Chewable) 81 mg PO DAILY [facility] Last Admin: 10/08/17 08:10 Dose: 81 mg Calcium Carbonate (Tums) 1,000 mg PO Q4H PRN PRN Reason: Heartburn or Indigestion Dextrose/Water (Dextrose 50%) 25 gm SLOW IVP PRN PRN PRN Reason: Hypoglycemia Diphenoxylate HCl/Atropine (Lomotil) 1 tab PO QIDPRN PRN PRN Reason: Diarrhea/Loose Stools Famotidine (Pepcid) 20 mg PO 2100 [facility] Last Admin: 10/07/17 20:43 Dose: 20 mg Ferrous Sulfate (Feosol) 325 mg PO DAILY [facility] Last Admin: 10/08/17 08:10 Dose: 325 mg Glucagon (Glucagon) 1 mg IM PRN PRN PRN Reason: Hypoglycemia Guaifenesin (Robitussin Sf) 200 mg PO Q4H PRN PRN Reason: Cough Hydralazine HCl (Apresoline) 10 mg SLOW IVP Q4H PRN PRN Reason: Systolic BP > 180 Cefepime HCl 1 gm/ Sodium (Chloride) 100 mls @ 200 mls/hr IVPB Q24HR [facility] Last Admin: 10/07/17 20:49 Dose: 100 mls Dextrose/Water (D5w) 1,000 mls @ 0 mls/hr IV .Q0M PRN PRN Reason: Hypoglycemia Insulin Human Isoph/Insulin Regular (Humulin 70/30) 25 units SC QAM [facility] Last Admin: 10/08/17 10:31 Dose: 25 unit Insulin Human Lispro (Humalog) 0 units SC .MODERATE SLIDING SC PRN PRN Reason: Moderate Correctional Scale Insulin Human Lispro (Humalog) 0 units SC .BEDTIME SLIDING SC PRN PRN Reason: Bedtime Correctional Scale Loratadine (Claritin) 10 mg PO DAILYPRN PRN PRN Reason: Sinus Symptoms Magnesium Hydroxide (Milk Of Magnesium) 30 ml PO DAILYPRN PRN PRN Reason: Constipation Meclizine HCl (Antivert) 12.5 mg PO DAILYPRN PRN PRN Reason: Dizziness Metoprolol Succinate (Toprol Xl) 25 mg PO DAILY [facility] Last Admin: 10/08/17 08:09 Dose: 25 mg Mineral Oil/White Petrolatum (Eucerin Cream) 0 gm TOP BIDPRN PRN PRN Reason: Dry Skin Ondansetron HCl (Zofran Odt) 4 mg PO Q6H PRN PRN Reason: Nausea/Vomiting Ondansetron HCl (Zofran) 4 mg IVP Q6H PRN PRN Reason: Nausea/Vomiting Last Admin: 10/07/17 12:21 Dose: 4 mg Phenol (Chloraseptic [place] 180 Ml Bot) 0 ml PO PRN PRN PRN Reason: Sore Throat Ropinirole HCl (Requip) 0.5 mg PO QPM [facility] Last Admin: 10/07/17 20:44 Dose: 0.5 mg Rosuvastatin Calcium (Crestor) 5 mg PO DAILY [facility] Last Admin: 10/08/17 08:15 Dose: 5 mg Saccharomyces Boulardii (Florastor) 250 mg PO DAILY [facility] Last Admin: 10/08/17 08:09 Dose: 250 mg Sertraline HCl (Zoloft) 50 mg PO DAILY [facility] Last Admin: 10/08/17 08:10 Dose: 50 mg Sodium Bicarbonate (Bicarbonate, Sodium) 325 mg PO BID [facility] Last Admin: 10/08/17 09:40 Dose: 325 mg Sodium Chloride ([place] Nasal [place] 0.65%) 0 ml EA NARE QIDPRN PRN PRN Reason: Nasal Congestion Temazepam (Restoril) 15 mg PO HSPRN PRN PRN Reason: Insomnia
[2017-10-08] MEDS: Famotidine 20 MG TAB PO SCH (20:01)
[2017-10-08] MEDS: Cefepime 1 GM in Sodium Chloride 0.9% 100 ML IVPB SCH (20:02)
[2017-10-08] MEDS: rOPINIRole HCl 0.5 MG TAB PO SCH (20:04)
[2017-10-09] MEDS: Dextrose 50% Abboject 50 ML SYRINGE SLOW IVP PRN (01:24)
[2017-10-09 07:19] LABS: #Eosinphils 0.2 thou/uL (0.0-0.7); #Lymphocytes 0.9 thou/uL (1.20-3.40); #Monocytes 0.8 thou/uL (0.11-0.59); #Neutrophils 7.5 thou/uL (1.40-6.50); %Basophils 0.1 % (0.0-1.0); %Eosinophils 1.7 % (0.0-10.0); %Lymphocytes 9.8 % (21.0-51.0); %Monocytes 8.8 % (0.0-10.0); %Neutrophils 79.7 % (42.0-75.0); Hemoglobin 11.2 g/dL (12.0-16.0); Mean Corpuscular HGB CONC 32.5 g/dL (32.0-36.0); Mean Corpuscular Hemoglobin 28.5 pg (27.0-31.0); Mean Corpuscular Volume 87.8 fL (78.0-98.0); Mean Platelet Volume 9.8 fL (7.4-10.4); Platelet Count 151 thou/uL (130-400); RBC Distribution Width 17.8 % (11.5-14.5); Red Blood Cell (RBC) Count 3.94 mill/uL (4.20-5.40); White Blood Cell (WBC) Count 9.5 thou/uL (4.8-10.8)
[2017-10-09 07:40] LABS: Anion Gap 14 mmol/L (10-20); BUN (Urea Nitrogen) 45 mg/dL (9.8-20.1); Calc. Creatinine Clearance 18 mL/min (70-130); Carbon Dioxide 12 mmol/L (23-31); Chloride 115 mmol/L (98-107); Estimated GFR-MDRD 15; Glucose 142 mg/dL (83-110); Sodium 137 mmol/L (136-145)
[2017-10-09] MEDS: Sodium Bicarbonate Tab 325 MG TAB PO SCH ×2 (08:05→20:48)
[2017-10-09] MEDS: Saccharomyces boulardii 250 MG CAP PO SCH (08:05)
[2017-10-09] MEDS: Ferrous Sulfate 325 MG TAB PO SCH (08:06)
[2017-10-09] MEDS: Amlodipine 10 MG TAB PO SCH (08:06)
[2017-10-09] MEDS: Apixaban 2.5 MG TAB PO SCH ×2 (08:10→20:48)
[2017-10-09] MEDS: Rosuvastatin 5 MG TAB PO SCH (09:33)
--- NOTE | 2017-10-09 10:37 | PRG ---
DATE OF SERVICE: 10/09/2017 SUBJECTIVE: The patient denies any abdominal pain. She has not had any bowel movements today. OBJECTIVE: VITAL SIGNS: Temperature 97.3, pulse 98, respiratory rate 12, blood pressure 157/81. CHEST: Clear. CARDIOVASCULAR: Regular rate and rhythm. ABDOMEN: Soft, nontender, without organomegaly or masses. LABORATORY DATA: Shows hemoglobin 11.2, hematocrit 34.6. ASSESSMENT: 1. Diarrhea - patient has not demonstrated any diarrhea during this hospitalization. 2. Heme positive stools. 3. Renal insufficiency. 4. Urinary tract infection. 5. Anemia. 6. Atrial fibrillation. RECOMMENDATIONS: 1. Continue to monitor for stool output. 2. We will sign off.
--- NOTE | 2017-10-09 11:20 | PDOC.PN ---
- Subjective Encounter Start Date: 10/09/17 Encounter Start Time: 09:40 Patient seen and examined. No new complaints. No overnight events - Objective Resuscitation Status: Resuscitation Status DNI:No Intubation MAR Reviewed: Yes Vital Signs & Weight: Vital Signs (12 hours) Temp Pulse Resp BP Pulse Ox 10/09/17 08:07 97.3 F L 98 12 157/81 H 94 L 10/09/17 08:06 90 10/09/17 08:00 97.3 F L 98 12 96 10/09/17 00:46 98 Weight Weight 166 lb 7.184 oz Most Recent Monitor Data Heart Rate from ECG 98 NIBP 131/63 NIBP BP-Mean 96 Respiration from ECG 17 SpO2 98 I&O: 10/08/17 10/09/17 10/10/17 06:59 06:59 06:59 Intake Total 1471 600 240 Output Total 835 Balance 636 600 240 Result Diagrams: 10/09/17 07:10 10/09/17 07:10 Additional Labs: Accuchecks 10/09/17 10/09/17 10/09/17 04:19 01:37 01:20 POC Glucose 153 H 211 H 52 L* 10/08/17 10/08/17 10/08/17 21:10 17:02 16:34 POC Glucose 103 120 H 66 L 10/08/17 11:58 POC Glucose 164 H Phys Exam - Physical Examination Constitutional: NAD HEENT: PERRLA, moist MMs, sclera anicteric Neck: no JVD, supple Respiratory: no wheezing, no rales, no rhonchi Cardiovascular: RRR, no significant murmur, no rub Gastrointestinal: soft, non-tender, no distention, positive bowel sounds Musculoskeletal: no edema, pulses present Neurological: non-focal, normal sensation Psychiatric: normal affect Skin: no rash, normal turgor Dx/Plan (1) Acute worsening of stage 3 chronic kidney disease Code(s): N18.3 - CHRONIC KIDNEY DISEASE, STAGE 3 (MODERATE) Status: Acute (2) Chronic diarrhea Code(s): K52.9 - NONINFECTIVE GASTROENTERITIS AND COLITIS, UNSPECIFIED Status : Acute (3) Dehydration Code(s): E86.0 - DEHYDRATION Status: Resolved Comment: (4) E. coli UTI Code(s): N39.0 - URINARY TRACT INFECTION, SITE NOT SPECIFIED; B96.20 - UNSP ESCHERICHIA COLI THE CAUSE OF DISEASES CLASSD ELSWHR Status: Acute Comment: (5) Gastroenteritis, infectious, presumed Code(s): K52.9 - NONINFECTIVE GASTROENTERITIS AND COLITIS, UNSPECIFIED Status : Acute Comment: (6) Hyperchloremic acidosis Code(s): E87.2 - ACIDOSIS Status: Acute (7) Hyperkalemia Code(s): E87.5 - HYPERKALEMIA Status: Resolved (8) Lactic acidosis Code(s): E87.2 - ACIDOSIS Status: Acute Comment: (9) Septic shock Code(s): A41.9 - SEPSIS, UNSPECIFIED ORGANISM; R65.21 - SEVERE SEPSIS WITH SEPTIC SHOCK Status: Resolved Comment: (10) Anemia, normocytic normochromic Code(s): D64.9 - ANEMIA, UNSPECIFIED Status: Chronic (11) Atrial fibrillation Code(s): I48.91 - UNSPECIFIED ATRIAL FIBRILLATION Status: Chronic (12) Dyslipidemia Code(s): E78.5 - HYPERLIPIDEMIA, UNSPECIFIED Status: Chronic (13) Hypertension Code(s): I10 - ESSENTIAL (PRIMARY) HYPERTENSION Status: Chronic (14) Obesity (BMI 30.0-34.9) Code(s): E66.9 - OBESITY, UNSPECIFIED Status: Chronic (15) Encephalopathy acute Code(s): G93.40 - ENCEPHALOPATHY, UNSPECIFIED Status: Acute (16) Hypoglycemia associated with type 2 diabetes mellitus Code(s): E11.649 - TYPE 2 DIABETES MELLITUS WITH HYPOGLYCEMIA WITHOUT COMA Status: Acute - Plan cont current plan of care, plan discussed w/ family, continue antibiotics * hold insulin for hypoglycemia * will need placement and awaited * continue cefepime * discussed with family bedside * medication reviewed as below * symptomatic treatment * continue PT. Review of Systems - Review of Systems Eyes: negative: Pain, Vision Change, Conjunctivae Inflammation, Eyelid Inflammation, Redness, Other ENT: negative: Ear Pain, Ear Discharge, Nose Pain, Nose Discharge, Nose Congestion, Mouth Pain, Mouth Swelling, Throat Pain, Throat Swelling, Other Respiratory: negative: Cough, Dry, Shortness of Breath, Hemoptysis, SOB with Excertion, Pleuritic Pain, Sputum, Wheezing Cardiovascular: negative: chest pain, palpitations, orthopnea, paroxysmal nocturnal dyspnea, edema, light headedness, other Gastrointestinal: negative: Nausea, Vomiting, Abdominal Pain, Diarrhea, Constipation, Melena, Hematochezia, Other Genitourinary: negative: Dysuria, Frequency, Incontinence, Hematuria, Retention , Other Musculoskeletal: negative: Neck Pain, Shoulder Pain, Arm Pain, Back Pain, Hand Pain, Leg Pain, Foot Pain, Other Neurological: Confusion. negative: Weakness, Numbness, Incoordination, Change in Speech, Seizures, Other Other: not reliable due to encephalopathy - Medications/Allergies Allergies/Adverse Reactions: Allergies Allergy/AdvReac Type Severity Reaction Status Date / Time No Known Allergies Allergy Verified 07/22/17 21:46 Medications: Current Medications Acetaminophen (Tylenol) 650 mg PO Q4H PRN PRN Reason: Headache/Fever or Mild Pain Hydrocodone Bitart/Acetaminophen ([place] 5/325) 1 tab PO Q4H PRN PRN Reason: Moderate Pain (4-6) Last Admin: 10/07/17 16:53 Dose: 1 tab Amlodipine Besylate (Norvasc) 10 mg PO DAILY [facility] Last Admin: 10/09/17 08:06 Dose: 10 mg Apixaban (Eliquis) 2.5 mg PO BID [facility] Last Admin: 10/09/17 08:10 Dose: 2.5 mg Artificial Tears (Tears Naturale) 0 drop EA EYE PRN PRN PRN Reason: Dry Eyes Aspirin (Aspirin Chewable) 81 mg PO DAILY [facility] Last Admin: 10/09/17 08:09 Dose: 81 mg Calcium Carbonate (Tums) 1,000 mg PO Q4H PRN PRN Reason: Heartburn or Indigestion Dextrose/Water (Dextrose 50%) 25 gm SLOW IVP PRN PRN PRN Reason: Hypoglycemia Last Admin: 10/09/17 01:24 Dose: 25 gm Diphenoxylate HCl/Atropine (Lomotil) 1 tab PO QIDPRN PRN PRN Reason: Diarrhea/Loose Stools Famotidine (Pepcid) 20 mg PO 2100 [facility] Last Admin: 10/08/17 20:01 Dose: 20 mg Ferrous Sulfate (Feosol) 325 mg PO DAILY [facility] Last Admin: 10/09/17 08:06 Dose: 325 mg Glucagon (Glucagon) 1 mg IM PRN PRN PRN Reason: Hypoglycemia Guaifenesin (Robitussin Sf) 200 mg PO Q4H PRN PRN Reason: Cough Hydralazine HCl (Apresoline) 10 mg SLOW IVP Q4H PRN PRN Reason: Systolic BP > 180 Cefepime HCl 1 gm/ Sodium (Chloride) 100 mls @ 200 mls/hr IVPB Q24HR [facility] Last Admin: 10/08/17 20:02 Dose: 100 mls Dextrose/Water (D5w) 1,000 mls @ 0 mls/hr IV .Q0M PRN PRN Reason: Hypoglycemia Insulin Human Lispro (Humalog) 0 units SC .MODERATE SLIDING SC PRN PRN Reason: Moderate Correctional Scale Insulin Human Lispro (Humalog) 0 units SC .BEDTIME SLIDING SC PRN PRN Reason: Bedtime Correctional Scale Loratadine (Claritin) 10 mg PO DAILYPRN PRN PRN Reason: Sinus Symptoms Magnesium Hydroxide (Milk Of Magnesium) 30 ml PO DAILYPRN PRN PRN Reason: Constipation Meclizine HCl (Antivert) 12.5 mg PO DAILYPRN PRN PRN Reason: Dizziness Metoprolol Succinate (Toprol Xl) 25 mg PO DAILY [facility] Last Admin: 10/09/17 08:06 Dose: 25 mg Mineral Oil/White Petrolatum (Eucerin Cream) 0 gm TOP BIDPRN PRN PRN Reason: Dry Skin Ondansetron HCl (Zofran Odt) 4 mg PO Q6H PRN PRN Reason: Nausea/Vomiting Ondansetron HCl (Zofran) 4 mg IVP Q6H PRN PRN Reason: Nausea/Vomiting Last Admin: 10/07/17 12:21 Dose: 4 mg Phenol (Chloraseptic [place] 180 Ml Bot) 0 ml PO PRN PRN PRN Reason: Sore Throat Ropinirole HCl (Requip) 0.5 mg PO QPM [facility] Last Admin: 10/08/17 20:04 Dose: 0.5 mg Rosuvastatin Calcium (Crestor) 5 mg PO DAILY [facility] Last Admin: 10/09/17 09:33 Dose: 5 mg Saccharomyces Boulardii (Florastor) 250 mg PO DAILY [facility] Last Admin: 10/09/17 08:05 Dose: 250 mg Sertraline HCl (Zoloft) 50 mg PO DAILY [facility] Last Admin: 10/09/17 08:06 Dose: 50 mg Sodium Bicarbonate (Bicarbonate, Sodium) 325 mg PO BID [facility] Last Admin: 10/09/17 08:05 Dose: 325 mg Sodium Chloride ([place] Nasal [place] 0.65%) 0 ml EA NARE QIDPRN PRN PRN Reason: Nasal Congestion Temazepam (Restoril) 15 mg PO HSPRN PRN PRN Reason: Insomnia
[2017-10-09] MEDS: Famotidine 20 MG TAB PO SCH (20:48)
[2017-10-09] MEDS: Cefepime 1 GM in Sodium Chloride 0.9% 100 ML IVPB SCH (20:48)
[2017-10-09] MEDS: rOPINIRole HCl 0.5 MG TAB PO SCH (20:48)
[2017-10-10] MEDS ORDERED: ALPRAZolam 0.25 MG TAB PO SCH ×2 (02:30→22:15)
[2017-10-10] MEDS: HumaLOG 300 UNITS/3 ML VIAL SC PRN (05:59)
[2017-10-10 07:44] LABS: #Eosinphils 0.1 thou/uL (0.0-0.7); #Monocytes 0.6 thou/uL (0.11-0.59); #Neutrophils 6.9 thou/uL (1.40-6.50); %Basophils 0.4 % (0.0-1.0); %Lymphocytes 11.9 % (21.0-51.0); %Monocytes 6.6 % (0.0-10.0); Hemoglobin 11.8 g/dL (12.0-16.0); Mean Corpuscular HGB CONC 34.1 g/dL (32.0-36.0); Mean Corpuscular Hemoglobin 29.5 pg (27.0-31.0); Mean Corpuscular Volume 86.5 fL (78.0-98.0); Mean Platelet Volume 9.2 fL (7.4-10.4); Platelet Count 172 thou/uL (130-400); RBC Distribution Width 17.3 % (11.5-14.5); Red Blood Cell (RBC) Count 3.99 mill/uL (4.20-5.40); White Blood Cell (WBC) Count 8.6 thou/uL (4.8-10.8)
[2017-10-10 08:03] LABS: Albumin 3.5 g/dL (3.4-4.8); Anion Gap 15 mmol/L (10-20); BUN (Urea Nitrogen) 45 mg/dL (9.8-20.1); BUN/Creatinine Ratio 15.63; Calc. Creatinine Clearance 18 mL/min (70-130); Calcium 8.3 mg/dL (7.8-10.44); Carbon Dioxide 14 mmol/L (23-31); Chloride 110 mmol/L (98-107); Estimated GFR-MDRD 16; Glucose 176 mg/dL (83-110); Phosphorus 3.2 mg/dL (2.3-4.7); Potassium 3.6 mmol/L (3.5-5.1); Sodium 135 mmol/L (136-145)
[2017-10-10] MEDS: Dextrose 50% Abboject 50 ML SYRINGE SLOW IVP PRN (08:48)
[2017-10-10] MEDS: Apixaban 2.5 MG TAB PO SCH ×2 (09:50→20:22)
[2017-10-10] MEDS: Saccharomyces boulardii 250 MG CAP PO SCH (09:51)
[2017-10-10] MEDS: Ferrous Sulfate 325 MG TAB PO SCH (09:51)
[2017-10-10] MEDS: Rosuvastatin 5 MG TAB PO SCH (09:51)
[2017-10-10] MEDS: Amlodipine 10 MG TAB PO SCH (09:51)
[2017-10-10] MEDS: Sodium Bicarbonate Tab 325 MG TAB PO SCH ×2 (10:51→20:21)
[2017-10-10 10:53] LABS: Syphilis Antibody Nonreactive (Nonreactive); Syphilis Antibody Index 0.08 S/CO (<1.00 Non-Reactive)
[2017-10-10 11:12] LABS: Folate (Folic Acid) 3.4 ng/mL (7.0-31.4)
--- NOTE | 2017-10-10 11:20 | PDOC.PN ---
- Subjective Encounter Start Date: 10/10/17 Encounter Start Time: 10:00 Patient seen and examined. family bedside pt is confused, she is hypoglycemic, she got restoril last night - Objective Resuscitation Status: Resuscitation Status DNI:No Intubation MAR Reviewed: Yes Vital Signs & Weight: Vital Signs (12 hours) Temp Pulse Resp BP BP Pulse Ox 10/10/17 09:51 93 168/80 H 10/10/17 07:44 97.3 F L 93 16 168/80 H 100 10/10/17 02:33 90 22 H 94 L Weight Weight 166 lb 7.184 oz Most Recent Monitor Data Heart Rate from ECG 98 NIBP 131/63 NIBP BP-Mean 96 Respiration from ECG 17 SpO2 98 I&O: 10/09/17 10/10/17 10/11/17 06:59 06:59 06:59 Intake Total 600 720 Balance 600 720 Result Diagrams: 10/10/17 07:14 10/10/17 07:14 Additional Labs: Accuchecks 10/10/17 10/10/17 10/10/17 08:41 05:41 02:46 POC Glucose 79 405 H 164 H 10/09/17 10/09/17 10/09/17 21:40 16:49 11:45 POC Glucose 278 H 212 H 188 H Radiology Reviewed by me: Yes (CT brain reviewed) Phys Exam - Physical Examination Constitutional: NAD confused HEENT: PERRLA, sclera anicteric Neck: no JVD, supple Respiratory: no wheezing, no rales, no rhonchi Cardiovascular: RRR, no significant murmur, no rub Gastrointestinal: soft, non-tender, no distention, positive bowel sounds obesity+ Musculoskeletal: no edema, pulses present Neurological: moves all 4 limbs Lymphatic: no nodes Deviation from normal: confused Skin: no rash, normal turgor Dx/Plan (1) Acute worsening of stage 3 chronic kidney disease Code(s): N18.3 - CHRONIC KIDNEY DISEASE, STAGE 3 (MODERATE) Status: Acute (2) Chronic diarrhea Code(s): K52.9 - NONINFECTIVE GASTROENTERITIS AND COLITIS, UNSPECIFIED Status : Resolved (3) Dehydration Code(s): E86.0 - DEHYDRATION Status: Resolved Comment: (4) E. coli UTI Code(s): N39.0 - URINARY TRACT INFECTION, SITE NOT SPECIFIED; B96.20 - UNSP ESCHERICHIA COLI THE CAUSE OF DISEASES CLASSD ELSWHR Status: Acute Comment: (5) Gastroenteritis, infectious, presumed Code(s): K52.9 - NONINFECTIVE GASTROENTERITIS AND COLITIS, UNSPECIFIED Status : Resolved Comment: (6) Hyperchloremic acidosis Code(s): E87.2 - ACIDOSIS Status: Acute (7) Hyperkalemia Code(s): E87.5 - HYPERKALEMIA Status: Resolved (8) Lactic acidosis Code(s): E87.2 - ACIDOSIS Status: Acute Comment: (9) Septic shock Code(s): A41.9 - SEPSIS, UNSPECIFIED ORGANISM; R65.21 - SEVERE SEPSIS WITH SEPTIC SHOCK Status: Resolved Comment: (10) Anemia, normocytic normochromic Code(s): D64.9 - ANEMIA, UNSPECIFIED Status: Chronic (11) Atrial fibrillation Code(s): I48.91 - UNSPECIFIED ATRIAL FIBRILLATION Status: Chronic (12) Dyslipidemia Code(s): E78.5 - HYPERLIPIDEMIA, UNSPECIFIED Status: Chronic (13) Hypertension Code(s): I10 - ESSENTIAL (PRIMARY) HYPERTENSION Status: Chronic (14) Obesity (BMI 30.0-34.9) Code(s): E66.9 - OBESITY, UNSPECIFIED Status: Chronic (15) Encephalopathy acute Code(s): G93.40 - ENCEPHALOPATHY, UNSPECIFIED Status: Acute (16) Hypoglycemia associated with type 2 diabetes mellitus Code(s): E11.649 - TYPE 2 DIABETES MELLITUS WITH HYPOGLYCEMIA WITHOUT COMA Status: Acute (17) Folate deficiency Code(s): E53.8 - DEFICIENCY OF OTHER SPECIFIED B GROUP VITAMINS Status: Chronic - Plan cont current plan of care, plan discussed w/ family, continue antibiotics, PT/OT , social work associate * check folic acid, B12, ammonia level * get CT brain * DC all sedative meds * medication reviewed as below * symptomatic treatment * encourage po intake * neuro consulted. Review of Systems - Review of Systems ENT: negative: Ear Pain, Ear Discharge, Nose Pain, Nose Discharge, Nose Congestion, Mouth Pain, Mouth Swelling, Throat Pain, Throat Swelling, Other Respiratory: negative: Cough, Dry, Shortness of Breath, Hemoptysis, SOB with Excertion, Pleuritic Pain, Sputum, Wheezing Cardiovascular: negative: chest pain, palpitations, orthopnea, paroxysmal nocturnal dyspnea, edema, light headedness, other Gastrointestinal: negative: Nausea, Vomiting, Abdominal Pain, Diarrhea, Constipation, Melena, Hematochezia, Other Genitourinary: negative: Dysuria, Frequency, Incontinence, Hematuria, Retention , Other Musculoskeletal: negative: Neck Pain, Shoulder Pain, Arm Pain, Back Pain, Hand Pain, Leg Pain, Foot Pain, Other Neurological: Confusion. negative: Weakness, Numbness, Incoordination, Change in Speech, Seizures, Other Other: not reliable due to confused status - Medications/Allergies Allergies/Adverse Reactions: Allergies Allergy/AdvReac Type Severity Reaction Status Date / Time No Known Allergies Allergy Verified 07/22/17 21:46 Medications: Current Medications Acetaminophen (Tylenol) 650 mg PO Q4H PRN PRN Reason: Headache/Fever or Mild Pain Albuterol/Ipratropium (Duoneb) 3 ml NEB Q4H PRN PRN Reason: SOB/WHEEZE Amlodipine Besylate (Norvasc) 10 mg PO DAILY [facility] Last Admin: 10/10/17 09:51 Dose: 10 mg Apixaban (Eliquis) 2.5 mg PO BID [facility] Last Admin: 10/10/17 09:50 Dose: 2.5 mg Artificial Tears (Tears Naturale) 0 drop EA EYE PRN PRN PRN Reason: Dry Eyes Aspirin (Aspirin Chewable) 81 mg PO DAILY [facility] Last Admin: 10/10/17 09:51 Dose: 81 mg Calcium Carbonate (Tums) 1,000 mg PO Q4H PRN PRN Reason: Heartburn or Indigestion Cyanocobalamin (Vitamin B-12) 1,000 mcg PO DAILY [facility] Dextrose/Water (Dextrose 50%) 25 gm SLOW IVP PRN PRN PRN Reason: Hypoglycemia Last Admin: 10/10/17 08:48 Dose: 25 gm Diphenoxylate HCl/Atropine (Lomotil) 1 tab PO QIDPRN PRN PRN Reason: Diarrhea/Loose Stools Famotidine (Pepcid) 20 mg PO 2100 [facility] Last Admin: 10/09/17 20:48 Dose: 20 mg Ferrous Sulfate (Feosol) 325 mg PO DAILY [facility] Last Admin: 10/10/17 09:51 Dose: 325 mg Folic Acid (Folvite) 1 mg PO DAILY [facility] Glucagon (Glucagon) 1 mg IM PRN PRN PRN Reason: Hypoglycemia Guaifenesin (Robitussin Sf) 200 mg PO Q4H PRN PRN Reason: Cough Hydralazine HCl (Apresoline) 10 mg SLOW IVP Q4H PRN PRN Reason: Systolic BP > 180 Cefepime HCl 1 gm/ Sodium (Chloride) 100 mls @ 200 mls/hr IVPB Q24HR [facility] Last Admin: 10/09/17 20:48 Dose: 100 mls Dextrose/Water (D5w) 1,000 mls @ 0 mls/hr IV .Q0M PRN PRN Reason: Hypoglycemia Insulin Human Lispro (Humalog) 0 units SC .MODERATE SLIDING SC PRN PRN Reason: Moderate Correctional Scale Last Admin: 10/10/17 05:59 Dose: 10 unit Insulin Human Lispro (Humalog) 0 units SC .BEDTIME SLIDING SC PRN PRN Reason: Bedtime Correctional Scale Last Admin: 10/09/17 22:32 Dose: 4 unit Magnesium Hydroxide (Milk Of Magnesium) 30 ml PO DAILYPRN PRN PRN Reason: Constipation Metoprolol Succinate (Toprol Xl) 25 mg PO DAILY [facility] Last Admin: 10/10/17 09:51 Dose: 25 mg Mineral Oil/White Petrolatum (Eucerin Cream) 0 gm TOP BIDPRN PRN PRN Reason: Dry Skin Ondansetron HCl (Zofran Odt) 4 mg PO Q6H PRN PRN Reason: Nausea/Vomiting Ondansetron HCl (Zofran) 4 mg IVP Q6H PRN PRN Reason: Nausea/Vomiting Last Admin: 10/07/17 12:21 Dose: 4 mg Phenol (Chloraseptic [place] 180 Ml Bot) 0 ml PO PRN PRN PRN Reason: Sore Throat Rosuvastatin Calcium (Crestor) 5 mg PO DAILY [facility] Last Admin: 10/10/17 09:51 Dose: 5 mg Saccharomyces Boulardii (Florastor) 250 mg PO DAILY [facility] Last Admin: 10/10/17 09:51 Dose: 250 mg Sertraline HCl (Zoloft) 50 mg PO DAILY [facility] Last Admin: 10/09/17 08:06 Dose: 50 mg Sodium Bicarbonate (Bicarbonate, Sodium) 650 mg PO BID [facility] Sodium Chloride ([place] Nasal [place] 0.65%) 0 ml EA NARE QIDPRN PRN PRN Reason: Nasal Congestion
--- NOTE | 2017-10-10 11:50 | CT ---
CT BRAIN WITHOUT CONTRAST: Date: 10/10/17 INDICATION: 82-year-old female with altered mental status. FINDINGS: There is generalized cerebral and cerebellar atrophy. There is mild chronic small vessel white matter ischemic change. There is mucosal thickening involving the sphenoid sinus that is stable. There is w all thickening involving the left main sphenoid sinus likely related to chronic osteitis from chronic sinusitis. Skull is intact. IMPRESSION: No acute intracranial abnormality. Examination is stable to the prior. There are chronic sinusitis ch anges involving the sphenoid sinus. POS: JAYDEN
--- NOTE | 2017-10-10 14:32 | CON ---
DATE OF CONSULTATION: 10/10/2017 REASON FOR CONSULTATION: Altered mental status. HISTORY OF PRESENT ILLNESS: The patient's family was in the room and they are the primary family mem bers who gave medical history. The patient is an 82-year-old lady who is very indepen dent and lives by self and looks after herself. Family found that over the past few days, she has bhatt d urinary infection and also has been on antibiotics since 08/2017. She also has a history of diarrh ea for the last few weeks with nausea and vomiting and was brought to the hospital. The patient has been in general fairly healthy prior to this. She was brought to the ER on 10/05/2017 and she had mu ltiple investigations, which showed acute renal failure with hyperkalemia, lactic acidosis, sepsis an d urinary infection and she has been started on IV antibiotics. No seizures were noted by any of the family members. Mostly, she has been sleepy or delirious and does not follow any commands and respo nd to the family. PAST MEDICAL HISTORY: Atrial fibrillation and she is on Eliquis; coronary artery disease, which is c hronic and stable; diabetes, which is insulin-controlled diabetes; hypertension; hyperlipidemia; recu rrent urinary infections; prior history of CVA, it is unclear which side of the body is affected and she has chronic kidney disease stage 3. PAST SURGICAL HISTORY: Cholecystectomy and appendectomy. She had angioplasty and lower back surgery as well. MEDICATIONS: At home, she is on tramadol, metformin, aspirin 81 mg per day, Eliquis, clonidine, Lasi x, hydralazine, lisinopril, Antivert, metoprolol, ropinirole, sertraline, Zanaflex and insulin. She is also on cefepime IV in the hospital. ALLERGIES: No known drug allergies. FAMILY HISTORY: No history of any seizures in the family. There is a history of diabetes in her fam floridalma. SOCIAL HISTORY: She lives by herself in [place], [place] and she usually does not need much help and sh e is very independent. REVIEW OF SYSTEMS: Unable to obtain. The patient is very much nonresponsive and does not even talk much or answer any questions. LABORATORY DATA: Her white count is 8.6, hemoglobin 11.8, hematocrit 34.5, platelets are 172,000. C hemistries, sodium 135, potassium 3.6, chloride 110, bicarbonate 14, BUN 45, creatinine 2.88, glucose 176. Vitamin B12 of 257, folate 3.40 and TSH 2.44. Urinalysis positive for leukocyte esterase and syphilis serology has been negative and her CT scan of the brain performed today showed no acute intr acranial abnormality. Examination is stable. There is chronic sinusitis with changes involving sphe noid sinus. PHYSICAL EXAMINATION: VITAL SIGNS: Blood pressure is 157/77, temperature 97.3, pulse is 75, respiratory rate is 18. GENERAL APPEARANCE: She has bruises, mostly in the left arm and also some bruising in the right uppe r extremity. No bruises noted elsewhere. She seems to lie down and does not open her eyes and when she does, she does not follow any commands. CHEST: Clear vesicular breathing. CARDIOVASCULAR: S1, S2 heard. ABDOMEN: Soft. NEUROLOGIC: She opens her eyes and when asked what is your name, she repeats the question and then g oes back to sleep. She does not answer any questions and does not follow commands and she appears to be delirious and searching for something in the air at times. 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 There is no facial asymmetry noted. She does not open her mouth. Motor, she moves all extremities equally. I am unable to assess her motor strength in individual muscle groups due to her cognitive status. D eep tendon reflexes were absent. Sensory, cerebellar and gait could not be tested. IMPRESSION: The patient is an 82-year-old lady with encephalopathy and altered mental status. There does not seem to be any clear cut history of seizures in her case. She has been admitted primarily with urinary infection and also acute on chronic renal impairment. At this time, her creatinine leve l is 2.88 and she is also on IV antibiotics and she does not seem to have returned to the baseline. Therefore, Neurology consultation was requested. Her CT scan of the head is negative for any acute s troke or acute event and her examination shows a delirious patient with no focal weakness. Clinical history and diagnosis is most consistent with metabolic encephalopathy. RECOMMENDATIONS: 1. If she does not seem to improve, consider spinal tap and lumbar puncture and Infectious Disease c onsultation. 2. I do not think she is having any acute seizure activity clinically. 3. If her encephalopathy does not resolve, we can certainly consider an MRI and also further workup such as EEGs. 4. I will follow up with you through the weekend.
[2017-10-10] MEDS: Famotidine 20 MG TAB PO SCH (20:22)
[2017-10-10] MEDS: Cefepime 1 GM in Sodium Chloride 0.9% 100 ML IVPB SCH (20:22)
[2017-10-10] MEDS: Acetaminophen 325 MG TAB PO PRN (22:38)
[2017-10-10] MEDS: traMADol HCl 50 MG TAB PO PRN (23:02)
[2017-10-11 08:06] LABS: Actual Bicarbonate (HCO3a) 16.7 mEq/L (22-28); Base Excess (BEa) -8.4 mEq/L (-2.0 to +3.0); CO2 Tension 33.1 mmHg (35.0-45.0); O2 Tension (PaO2) 108.3 mmHg (> 60.0); pH, Arterial 7.32 (7.35-7.45)
[2017-10-11 08:07] LABS: Carboxyhemoglobin (COHb) 0.9 gm% (0.0-3.0)
[2017-10-11 08:08] LABS: ALV-art Gradient 105.205 (0-20); Calcium, Ionized 1.09 mmol/L (1.12-1.30); Puncture Site RRA
[2017-10-11 08:57] LABS: #Eosinphils 0.2 thou/uL (0.0-0.7); #Lymphocytes 0.8 thou/uL (1.20-3.40); #Monocytes 0.8 thou/uL (0.11-0.59); %Basophils 0.3 % (0.0-1.0); %Eosinophils 1.8 % (0.0-10.0); %Lymphocytes 8.8 % (21.0-51.0); %Monocytes 9.3 % (0.0-10.0); %Neutrophils 79.9 % (42.0-75.0); Hemoglobin 10.5 g/dL (12.0-16.0); Mean Corpuscular HGB CONC 33.3 g/dL (32.0-36.0); Mean Corpuscular Hemoglobin 28.5 pg (27.0-31.0); Mean Corpuscular Volume 85.6 fL (78.0-98.0); Mean Platelet Volume 9.9 fL (7.4-10.4); Platelet Count 146 thou/uL (130-400); RBC Distribution Width 17.2 % (11.5-14.5); Red Blood Cell (RBC) Count 3.68 mill/uL (4.20-5.40); White Blood Cell (WBC) Count 8.8 thou/uL (4.8-10.8)
[2017-10-11 09:07] LABS: Lactic Acid 1.5 mmol/L (0.5-2.2)
[2017-10-11 09:16] LABS: ALT (SGPT) 11 U/L (8-55); AST (SGOT) 22 U/L (5-34); Albumin 3.3 g/dL (3.4-4.8); Alkaline Phosphatase 75 U/L (40-150); Anion Gap 17 mmol/L (10-20); BUN (Urea Nitrogen) 44 mg/dL (9.8-20.1); Bilirubin, Total 0.4 mg/dL (0.2-1.2); Calc. Creatinine Clearance 19 mL/min (70-130); Carbon Dioxide 12 mmol/L (23-31); Chloride 110 mmol/L (98-107); Estimated GFR-MDRD 17; Globulin 2.6 g/dL (2.4-3.5); Glucose 234 mg/dL (83-110); Potassium 4.7 mmol/L (3.5-5.1); Protein, Total 5.9 g/dL (6.0-8.3); Sodium 134 mmol/L (136-145)
--- NOTE | 2017-10-11 10:05 | PDOC.PN ---
- Subjective Encounter Start Date: 10/11/17 Encounter Start Time: 09:40 last night she was given tramadol and xanax, this morning she is very sleepy and confused - Objective Resuscitation Status: Resuscitation Status DNI:No Intubation MAR Reviewed: Yes Vital Signs & Weight: Weight Weight 166 lb 7.184 oz Most Recent Monitor Data Heart Rate from ECG 98 NIBP 131/63 NIBP BP-Mean 96 Respiration from ECG 17 SpO2 98 I&O: 10/10/17 10/11/17 10/12/17 06:59 06:59 06:59 Intake Total 720 Balance 720 Result Diagrams: 10/11/17 08:41 10/11/17 08:41 Additional Labs: Accuchecks 10/11/17 10/10/17 10/10/17 05:06 20:30 16:27 POC Glucose 242 H 225 H 177 H 10/10/17 11:41 POC Glucose 106 Radiology Reviewed by me: Yes (chest xray reviewed by me) Phys Exam - Physical Examination Constitutional: NAD HEENT: PERRLA, moist MMs, sclera anicteric Neck: no JVD, supple Respiratory: no wheezing, no rales, no rhonchi Cardiovascular: RRR, no rub SM+ Gastrointestinal: soft, non-tender, no distention, positive bowel sounds obesity+ Musculoskeletal: no edema, pulses present Neurological: moves all 4 limbs Lymphatic: no nodes Psychiatric: normal affect Skin: no rash, normal turgor Dx/Plan (1) Encephalopathy acute Code(s): G93.40 - ENCEPHALOPATHY, UNSPECIFIED Status: Acute Comment: multifectorial (2) Acute worsening of stage 3 chronic kidney disease Code(s): N18.3 - CHRONIC KIDNEY DISEASE, STAGE 3 (MODERATE) Status: Acute (3) Dehydration Code(s): E86.0 - DEHYDRATION Status: Resolved Comment: (4) E. coli UTI Code(s): N39.0 - URINARY TRACT INFECTION, SITE NOT SPECIFIED; B96.20 - UNSP ESCHERICHIA COLI THE CAUSE OF DISEASES CLASSD ELSWHR Status: Acute Comment: (5) Gastroenteritis, infectious, presumed Code(s): K52.9 - NONINFECTIVE GASTROENTERITIS AND COLITIS, UNSPECIFIED Status : Resolved Comment: (6) Hyperchloremic acidosis Code(s): E87.2 - ACIDOSIS Status: Acute (7) Hyperkalemia Code(s): E87.5 - HYPERKALEMIA Status: Resolved (8) Lactic acidosis Code(s): E87.2 - ACIDOSIS Status: Acute Comment: (9) Septic shock Code(s): A41.9 - SEPSIS, UNSPECIFIED ORGANISM; R65.21 - SEVERE SEPSIS WITH SEPTIC SHOCK Status: Resolved Comment: (10) Anemia, normocytic normochromic Code(s): D64.9 - ANEMIA, UNSPECIFIED Status: Chronic (11) Atrial fibrillation Code(s): I48.91 - UNSPECIFIED ATRIAL FIBRILLATION Status: Chronic Qualifiers: Atrial fibrillation type: paroxysmal Qualified Code(s): I48.0 - Paroxysmal atrial fibrillation (12) Dyslipidemia Code(s): E78.5 - HYPERLIPIDEMIA, UNSPECIFIED Status: Chronic (13) Hypertension Code(s): I10 - ESSENTIAL (PRIMARY) HYPERTENSION Status: Chronic (14) Obesity (BMI 30.0-34.9) Code(s): E66.9 - OBESITY, UNSPECIFIED Status: Chronic (15) Hypoglycemia associated with type 2 diabetes mellitus Code(s): E11.649 - TYPE 2 DIABETES MELLITUS WITH HYPOGLYCEMIA WITHOUT COMA Status: Acute (16) Folate deficiency Code(s): E53.8 - DEFICIENCY OF OTHER SPECIFIED B GROUP VITAMINS Status: Chronic - Plan cont current plan of care, plan discussed w/ family, continue antibiotics, addiction social worker * ABG done and reviewed, no co2 narcosis * labs are unremarkable, CT brain is OK, neurology recommendation noted * does not think needs LP at this point * suspecting current drawsiness related with xanax and tramadol * will avoid any sedatives * medication reviewed as below * symptomatic treatment * continue cefepime * renal function improving, hypoglycemia resolved * discussed with family bedside. Review of Systems - Review of Systems Other: not reliable today due to encephalopathy - Medications/Allergies Allergies/Adverse Reactions: Allergies Allergy/AdvReac Type Severity Reaction Status Date / Time No Known Allergies Allergy Verified 07/22/17 21:46 Medications: Current Medications Acetaminophen (Tylenol) 650 mg PO Q4H PRN PRN Reason: Headache/Fever or Mild Pain Last Admin: 10/10/17 22:38 Dose: 650 mg Albuterol/Ipratropium (Duoneb) 3 ml NEB Q4H PRN PRN Reason: SOB/WHEEZE Amlodipine Besylate (Norvasc) 10 mg PO DAILY [facility] Last Admin: 10/10/17 09:51 Dose: 10 mg Apixaban (Eliquis) 2.5 mg PO BID [facility] Last Admin: 10/10/17 20:22 Dose: 2.5 mg Artificial Tears (Tears Naturale) 0 drop EA EYE PRN PRN PRN Reason: Dry Eyes Aspirin (Aspirin Chewable) 81 mg PO DAILY [facility] Last Admin: 10/10/17 09:51 Dose: 81 mg Calcium Carbonate (Tums) 1,000 mg PO Q4H PRN PRN Reason: Heartburn or Indigestion Cyanocobalamin (Vitamin B-12) 1,000 mcg PO DAILY [facility] Dextrose/Water (Dextrose 50%) 25 gm SLOW IVP PRN PRN PRN Reason: Hypoglycemia Last Admin: 10/10/17 08:48 Dose: 25 gm Diphenoxylate HCl/Atropine (Lomotil) 1 tab PO QIDPRN PRN PRN Reason: Diarrhea/Loose Stools Famotidine (Pepcid) 20 mg PO 2100 [facility] Last Admin: 10/10/17 20:22 Dose: 20 mg Ferrous Sulfate (Feosol) 325 mg PO DAILY [facility] Last Admin: 10/10/17 09:51 Dose: 325 mg Folic Acid (Folvite) 1 mg PO DAILY [facility] Glucagon (Glucagon) 1 mg IM PRN PRN PRN Reason: Hypoglycemia Guaifenesin (Robitussin Sf) 200 mg PO Q4H PRN PRN Reason: Cough Hydralazine HCl (Apresoline) 10 mg SLOW IVP Q4H PRN PRN Reason: Systolic BP > 180 Cefepime HCl 1 gm/ Sodium (Chloride) 100 mls @ 200 mls/hr IVPB Q24HR [facility] Last Admin: 10/10/17 20:22 Dose: 100 mls Dextrose/Water (D5w) 1,000 mls @ 0 mls/hr IV .Q0M PRN PRN Reason: Hypoglycemia Insulin Human Lispro (Humalog) 0 units SC .MODERATE SLIDING SC PRN PRN Reason: Moderate Correctional Scale Last Admin: 10/10/17 05:59 Dose: 10 unit Insulin Human Lispro (Humalog) 0 units SC .BEDTIME SLIDING SC PRN PRN Reason: Bedtime Correctional Scale Last Admin: 10/09/17 22:32 Dose: 4 unit Magnesium Hydroxide (Milk Of Magnesium) 30 ml PO DAILYPRN PRN PRN Reason: Constipation Metoprolol Succinate (Toprol Xl) 25 mg PO DAILY [facility] Last Admin: 10/10/17 09:51 Dose: 25 mg Mineral Oil/White Petrolatum (Eucerin Cream) 0 gm TOP BIDPRN PRN PRN Reason: Dry Skin Ondansetron HCl (Zofran Odt) 4 mg PO Q6H PRN PRN Reason: Nausea/Vomiting Ondansetron HCl (Zofran) 4 mg IVP Q6H PRN PRN Reason: Nausea/Vomiting Last Admin: 10/07/17 12:21 Dose: 4 mg Phenol (Chloraseptic [place] 180 Ml Bot) 0 ml PO PRN PRN PRN Reason: Sore Throat Rosuvastatin Calcium (Crestor) 5 mg PO DAILY [facility] Last Admin: 10/10/17 09:51 Dose: 5 mg Saccharomyces Boulardii (Florastor) 250 mg PO DAILY [facility] Last Admin: 10/10/17 09:51 Dose: 250 mg Sertraline HCl (Zoloft) 50 mg PO DAILY [facility] Last Admin: 10/10/17 14:12 Dose: Not Given Sodium Bicarbonate (Bicarbonate, Sodium) 650 mg PO BID [facility] Last Admin: 10/10/17 20:21 Dose: 650 mg Sodium Chloride ([place] Nasal [place] 0.65%) 0 ml EA NARE QIDPRN PRN PRN Reason: Nasal Congestion Tramadol HCl (Ultram) 50 mg PO Q6H PRN PRN Reason: Pain 4-6 Last Admin: 10/10/17 23:02 Dose: 50 mg
--- NOTE | 2017-10-11 10:42 | RAD ---
PORTABLE CHEST: History: Dyspnea. Comparison: 10-05-17 FINDINGS: Heart size is enlarged. Pulmonary vessels are engorged with increased parahilar markings suggesting t hat there is an element of edema. Right sided central line is present. Catheter tip overlies the supe rior vena cava. The bones are demineralized. IMPRESSION: Cardiomegaly with pulmonary vascular engorgement, increased lung markings more perihilar in location suggesting pulmonary edema. POS: C
[2017-10-11] MEDS: Folic Acid 1 MG TAB PO SCH (13:12)
[2017-10-11] MEDS: Saccharomyces boulardii 250 MG CAP PO SCH (13:12)
[2017-10-11] MEDS: Amlodipine 10 MG TAB PO SCH (13:12)
[2017-10-11] MEDS: Sodium Bicarbonate Tab 325 MG TAB PO SCH ×2 (13:13→20:46)
[2017-10-11] MEDS: Ferrous Sulfate 325 MG TAB PO SCH (13:13)
[2017-10-11] MEDS: Apixaban 2.5 MG TAB PO SCH ×2 (13:14→20:47)
[2017-10-11] MEDS: Rosuvastatin 5 MG TAB PO SCH (13:14)
[2017-10-11] MEDS: Cyanocobalamin (Vitamin B-12) 1,000 MCG TAB PO SCH (13:14)
--- NOTE | 2017-10-11 16:22 | PRG ---
DATE OF SERVICE: 10/11/2017 CHIEF COMPLAINT: Altered mental status. INTERVAL HISTORY: The patient was very agitated per family members and last night she had received X anax along with tramadol and she has been very sleepy throughout this morning and also reviewed Dr. Omayra clark's note, which states that they are going to stop all sedating medications to see if she wakes up. LABORATORY WORKUP: White count 8.8, hemoglobin 10.5, hematocrit 31.5, platelets 146. Chemistry: So dium 134, potassium 4.7, chloride 110, bicarbonate 12, BUN 44, creatinine 2.67. PHYSICAL EXAMINATION: VITAL SIGNS: Temperature 96.7, blood pressure 177/65, and pulse rate is 65. GENERAL: The patient is still very sleepy and snoring. CHEST: Clear vesicular breathing. NEUROLOGIC: When aroused, she opens her eyes and moves her right arm and falls right back to sleep. She does not obey any commands. Pupils reactive to light bilaterally. Pterygium in the right eye. No facial asymmetry noted. Motor examination some withdrawal to pain and moves her right arm and wa kes up to painful deep stimulus. IMPRESSION: The patient is an 82-year-old lady, who is having altered mental status due to possible urosepsis and renal impairment plus medications. At this time she is ing and therefore receiv ed extra medications overnight and is very sedated likely this is metabolic encephalopathy. RECOMMENDATIONS: As suggested yesterday, if she does not improve, consider EEG, MRI and also a lumba r puncture. Please call Neurology if any further questions. I will be off call from tomorrow.
[2017-10-11] MEDS: HumaLOG 300 UNITS/3 ML VIAL SC PRN (16:56)
[2017-10-11] MEDS: Cefepime 1 GM in Sodium Chloride 0.9% 100 ML IVPB SCH (20:47)
[2017-10-11] MEDS: Famotidine 20 MG TAB PO SCH (20:47)
[2017-10-12] MEDS: Acetaminophen 325 MG TAB PO PRN ×2 (03:48→19:30)
[2017-10-12] MEDS ORDERED: Furosemide 40 MG/4 ML VIAL SLOW IVP SCH (08:30)
[2017-10-12] MEDS: Apixaban 2.5 MG TAB PO SCH ×2 (09:00→19:30)
[2017-10-12] MEDS: Saccharomyces boulardii 250 MG CAP PO SCH (09:01)
[2017-10-12] MEDS: Sodium Bicarbonate Tab 325 MG TAB PO SCH ×2 (09:01→19:30)
[2017-10-12] MEDS: Folic Acid 1 MG TAB PO SCH (09:01)
[2017-10-12] MEDS: Ferrous Sulfate 325 MG TAB PO SCH (09:01)
[2017-10-12] MEDS: Amlodipine 10 MG TAB PO SCH (09:01)
[2017-10-12] MEDS: Rosuvastatin 5 MG TAB PO SCH (09:02)
[2017-10-12] MEDS: Cyanocobalamin (Vitamin B-12) 1,000 MCG TAB PO SCH (09:02)
--- NOTE | 2017-10-12 11:11 | PDOC.PN ---
- Subjective Encounter Start Date: 10/12/17 Encounter Start Time: 09:40 Patient seen and examined. c/o dyspnea. No overnight events - Objective Resuscitation Status: Resuscitation Status DNI:No Intubation MAR Reviewed: Yes Vital Signs & Weight: Vital Signs (12 hours) Temp Pulse Resp BP BP Pulse Ox 10/12/17 09:01 79 150/67 H 10/12/17 08:00 96.6 F L 79 22 H 94 L 10/12/17 07:58 96.6 F L 79 22 H 150/67 H 94 L Weight Weight 166 lb 7.184 oz Most Recent Monitor Data Heart Rate from ECG 98 NIBP 131/63 NIBP BP-Mean 96 Respiration from ECG 17 SpO2 98 I&O: 10/11/17 10/12/17 10/13/17 06:59 06:59 06:59 Intake Total 240 Balance 240 Result Diagrams: 10/11/17 08:41 10/11/17 08:41 Additional Labs: Accuchecks 10/12/17 10/11/17 10/11/17 04:36 20:43 16:46 POC Glucose 168 H 111 H 233 H 10/11/17 11:04 POC Glucose 229 H Phys Exam - Physical Examination Constitutional: NAD HEENT: PERRLA, moist MMs, sclera anicteric Neck: no JVD, supple coarse sound at base Cardiovascular: RRR, no significant murmur, no rub Gastrointestinal: soft, non-tender, no distention, positive bowel sounds Musculoskeletal: pulses present, edema present Neurological: non-focal, normal sensation Psychiatric: normal affect Skin: no rash, normal turgor Dx/Plan (1) Encephalopathy acute Code(s): G93.40 - ENCEPHALOPATHY, UNSPECIFIED Status: Acute Comment: multifectorial (2) Acute worsening of stage 3 chronic kidney disease Code(s): N18.3 - CHRONIC KIDNEY DISEASE, STAGE 3 (MODERATE) Status: Acute (3) Dehydration Code(s): E86.0 - DEHYDRATION Status: Resolved Comment: (4) E. coli UTI Code(s): N39.0 - URINARY TRACT INFECTION, SITE NOT SPECIFIED; B96.20 - UNSP ESCHERICHIA COLI THE CAUSE OF DISEASES CLASSD ELSWHR Status: Acute Comment: (5) Gastroenteritis, infectious, presumed Code(s): K52.9 - NONINFECTIVE GASTROENTERITIS AND COLITIS, UNSPECIFIED Status : Resolved Comment: (6) Hyperchloremic acidosis Code(s): E87.2 - ACIDOSIS Status: Acute (7) Hyperkalemia Code(s): E87.5 - HYPERKALEMIA Status: Resolved (8) Lactic acidosis Code(s): E87.2 - ACIDOSIS Status: Acute Comment: (9) Septic shock Code(s): A41.9 - SEPSIS, UNSPECIFIED ORGANISM; R65.21 - SEVERE SEPSIS WITH SEPTIC SHOCK Status: Resolved Comment: (10) Anemia, normocytic normochromic Code(s): D64.9 - ANEMIA, UNSPECIFIED Status: Chronic (11) Atrial fibrillation Code(s): I48.91 - UNSPECIFIED ATRIAL FIBRILLATION Status: Chronic Qualifiers: Atrial fibrillation type: paroxysmal Qualified Code(s): I48.0 - Paroxysmal atrial fibrillation (12) Dyslipidemia Code(s): E78.5 - HYPERLIPIDEMIA, UNSPECIFIED Status: Chronic (13) Hypertension Code(s): I10 - ESSENTIAL (PRIMARY) HYPERTENSION Status: Chronic (14) Obesity (BMI 30.0-34.9) Code(s): E66.9 - OBESITY, UNSPECIFIED Status: Chronic (15) Hypoglycemia associated with type 2 diabetes mellitus Code(s): E11.649 - TYPE 2 DIABETES MELLITUS WITH HYPOGLYCEMIA WITHOUT COMA Status: Acute (16) Folate deficiency Code(s): E53.8 - DEFICIENCY OF OTHER SPECIFIED B GROUP VITAMINS Status: Chronic (17) Acute on chronic diastolic ACC/AHA stage C congestive heart failure Code(s): I50.33 - ACUTE ON CHRONIC DIASTOLIC (CONGESTIVE) HEART FAILURE Status : Acute (18) Acute respiratory failure with hypoxia Code(s): J96.01 - ACUTE RESPIRATORY FAILURE WITH HYPOXIA Status: Acute - Plan cont current plan of care, plan discussed w/ family, continue antibiotics, PT/OT * will give lasix IV today * monitor renal function and wean off oxygen as tolerated * medication reviewed as below * symptomatic treatment * discussed with family * will monitor today and reevaluate tomorrow if she is stable for discharge or not. Review of Systems - Review of Systems ENT: negative: Ear Pain, Ear Discharge, Nose Pain, Nose Discharge, Nose Congestion, Mouth Pain, Mouth Swelling, Throat Pain, Throat Swelling, Other Respiratory: Shortness of Breath, SOB with Excertion. negative: Cough, Dry, Hemoptysis, Pleuritic Pain, Sputum, Wheezing Cardiovascular: negative: chest pain, palpitations, orthopnea, paroxysmal nocturnal dyspnea, edema, light headedness, other Gastrointestinal: negative: Nausea, Vomiting, Abdominal Pain, Diarrhea, Constipation, Melena, Hematochezia, Other Genitourinary: negative: Dysuria, Frequency, Incontinence, Hematuria, Retention , Other Musculoskeletal: negative: Neck Pain, Shoulder Pain, Arm Pain, Back Pain, Hand Pain, Leg Pain, Foot Pain, Other Skin: negative: Rash, Lesions, Edgar, Bruising, Other - Medications/Allergies Allergies/Adverse Reactions: Allergies Allergy/AdvReac Type Severity Reaction Status Date / Time No Known Allergies Allergy Verified 07/22/17 21:46 Medications: Current Medications Acetaminophen (Tylenol) 650 mg PO Q4H PRN PRN Reason: Headache/Fever or Mild Pain Last Admin: 10/12/17 03:48 Dose: 650 mg Albuterol/Ipratropium (Duoneb) 3 ml NEB Q4H PRN PRN Reason: SOB/WHEEZE Amlodipine Besylate (Norvasc) 10 mg PO DAILY [facility] Last Admin: 10/12/17 09:01 Dose: 10 mg Apixaban (Eliquis) 2.5 mg PO BID [facility] Last Admin: 10/12/17 09:00 Dose: 2.5 mg Artificial Tears (Tears Naturale) 0 drop EA EYE PRN PRN PRN Reason: Dry Eyes Aspirin (Aspirin Chewable) 81 mg PO DAILY [facility] Last Admin: 10/12/17 09:02 Dose: 81 mg Calcium Carbonate (Tums) 1,000 mg PO Q4H PRN PRN Reason: Heartburn or Indigestion Cyanocobalamin (Vitamin B-12) 1,000 mcg PO DAILY [facility] Last Admin: 10/12/17 09:02 Dose: 1,000 mcg Dextrose/Water (Dextrose 50%) 25 gm SLOW IVP PRN PRN PRN Reason: Hypoglycemia Last Admin: 10/10/17 08:48 Dose: 25 gm Diphenoxylate HCl/Atropine (Lomotil) 1 tab PO QIDPRN PRN PRN Reason: Diarrhea/Loose Stools Famotidine (Pepcid) 20 mg PO 2100 [facility] Last Admin: 10/11/17 20:47 Dose: 20 mg Ferrous Sulfate (Feosol) 325 mg PO DAILY [facility] Last Admin: 10/12/17 09:01 Dose: 325 mg Folic Acid (Folvite) 1 mg PO DAILY [facility] Last Admin: 10/12/17 09:01 Dose: 1 mg Furosemide (Lasix) 40 mg SLOW IVP 0600,1400 [facility] Glucagon (Glucagon) 1 mg IM PRN PRN PRN Reason: Hypoglycemia Guaifenesin (Robitussin Sf) 200 mg PO Q4H PRN PRN Reason: Cough Hydralazine HCl (Apresoline) 10 mg SLOW IVP Q4H PRN PRN Reason: Systolic BP > 180 Cefepime HCl 1 gm/ Sodium (Chloride) 100 mls @ 200 mls/hr IVPB Q24HR [facility] Last Admin: 10/11/17 20:47 Dose: 100 mls Dextrose/Water (D5w) 1,000 mls @ 0 mls/hr IV .Q0M PRN PRN Reason: Hypoglycemia Insulin Human Lispro (Humalog) 0 units SC .MODERATE SLIDING SC PRN PRN Reason: Moderate Correctional Scale Last Admin: 10/11/17 16:56 Dose: 4 unit Insulin Human Lispro (Humalog) 0 units SC .BEDTIME SLIDING SC PRN PRN Reason: Bedtime Correctional Scale Last Admin: 10/09/17 22:32 Dose: 4 unit Magnesium Hydroxide (Milk Of Magnesium) 30 ml PO DAILYPRN PRN PRN Reason: Constipation Metoprolol Succinate (Toprol Xl) 25 mg PO DAILY [facility] Last Admin: 10/12/17 09:01 Dose: 25 mg Mineral Oil/White Petrolatum (Eucerin Cream) 0 gm TOP BIDPRN PRN PRN Reason: Dry Skin Ondansetron HCl (Zofran Odt) 4 mg PO Q6H PRN PRN Reason: Nausea/Vomiting Ondansetron HCl (Zofran) 4 mg IVP Q6H PRN PRN Reason: Nausea/Vomiting Last Admin: 10/07/17 12:21 Dose: 4 mg Phenol (Chloraseptic [place] 180 Ml Bot) 0 ml PO PRN PRN PRN Reason: Sore Throat Rosuvastatin Calcium (Crestor) 5 mg PO DAILY [facility] Last Admin: 10/12/17 09:02 Dose: 5 mg Saccharomyces Boulardii (Florastor) 250 mg PO DAILY [facility] Last Admin: 10/12/17 09:01 Dose: 250 mg Sertraline HCl (Zoloft) 50 mg PO DAILY [facility] Last Admin: 10/12/17 09:01 Dose: 50 mg Sodium Bicarbonate (Bicarbonate, Sodium) 650 mg PO BID [facility] Last Admin: 10/12/17 09:01 Dose: 650 mg Sodium Chloride ([place] Nasal [place] 0.65%) 0 ml EA NARE QIDPRN PRN PRN Reason: Nasal Congestion Tramadol HCl (Ultram) 50 mg PO Q6H PRN PRN Reason: Pain 4-6 Last Admin: 10/10/17 23:02 Dose: 50 mg
[2017-10-12] MEDS: HumaLOG 300 UNITS/3 ML VIAL SC PRN (13:14)
[2017-10-12] MEDS: Furosemide 40 MG/4 ML VIAL SLOW IVP SCH (15:15)
[2017-10-12] MEDS: Famotidine 20 MG TAB PO SCH (19:30)
[2017-10-12] MEDS: traMADol HCl 50 MG TAB PO PRN (19:30)
[2017-10-12] MEDS: Cefepime 1 GM in Sodium Chloride 0.9% 100 ML IVPB SCH (20:36)
[2017-10-13] MEDS: Furosemide 40 MG/4 ML VIAL SLOW IVP SCH ×2 (05:17→16:00)
[2017-10-13 05:32] LABS: Anion Gap 13 mmol/L (10-20); BUN (Urea Nitrogen) 44 mg/dL (9.8-20.1); Calc. Creatinine Clearance 20 mL/min (70-130); Calcium 8.4 mg/dL (7.8-10.44); Carbon Dioxide 20 mmol/L (23-31); Chloride 108 mmol/L (98-107); Estimated GFR-MDRD 18; Glucose 189 mg/dL (83-110); Potassium 3.4 mmol/L (3.5-5.1); Sodium 138 mmol/L (136-145)
[2017-10-13] MEDS ORDERED: Magnesium Sulfate 4 GM in Sodium Chloride 0.9% 250 ML 250 ML IVPB SCH (06:45)
[2017-10-13] MEDS ORDERED: Potassium Chloride 20 MEQ TAB PO SCH (06:45)
[2017-10-13] MEDS: Folic Acid 1 MG TAB PO SCH (08:13)
[2017-10-13] MEDS: Sodium Bicarbonate Tab 325 MG TAB PO SCH ×2 (08:14→22:01)
[2017-10-13] MEDS: Amlodipine 10 MG TAB PO SCH (08:14)
[2017-10-13] MEDS: Cyanocobalamin (Vitamin B-12) 1,000 MCG TAB PO SCH (08:14)
[2017-10-13] MEDS: Ferrous Sulfate 325 MG TAB PO SCH (08:14)
[2017-10-13] MEDS: Saccharomyces boulardii 250 MG CAP PO SCH (08:15)
[2017-10-13] MEDS: Apixaban 2.5 MG TAB PO SCH ×2 (08:15→22:02)
--- NOTE | 2017-10-13 09:50 | PDOC.PN ---
- Subjective Encounter Start Date: 10/13/17 Encounter Start Time: 09:00 she is still short of breath, overall better than yesterday - Objective Resuscitation Status: Resuscitation Status DNI:No Intubation MAR Reviewed: Yes Vital Signs & Weight: Vital Signs (12 hours) Temp Pulse Resp BP BP Pulse Ox 10/13/17 08:14 87 136/75 10/13/17 07:57 98.4 F 87 22 H 136/75 94 L Weight Weight 166 lb 7.184 oz Most Recent Monitor Data Heart Rate from ECG 98 NIBP 131/63 NIBP BP-Mean 96 Respiration from ECG 17 SpO2 98 I&O: 10/12/17 10/13/17 10/14/17 06:59 06:59 06:59 Intake Total 600 Balance 600 Result Diagrams: 10/11/17 08:41 10/13/17 04:34 Additional Labs: Accuchecks 10/13/17 10/12/17 10/12/17 05:21 21:18 16:30 POC Glucose 186 H 179 H 178 H 10/12/17 11:12 POC Glucose 224 H Phys Exam - Physical Examination Constitutional: NAD HEENT: moist MMs, sclera anicteric Neck: no JVD, supple Respiratory: no wheezing, no rhonchi basal rales Cardiovascular: RRR, no significant murmur, no rub Gastrointestinal: soft, non-tender, no distention, positive bowel sounds Musculoskeletal: no edema, pulses present Neurological: non-focal, normal sensation, moves all 4 limbs Lymphatic: no nodes Psychiatric: normal affect Skin: no rash, normal turgor Dx/Plan (1) Acute on chronic diastolic ACC/AHA stage C congestive heart failure Code(s): I50.33 - ACUTE ON CHRONIC DIASTOLIC (CONGESTIVE) HEART FAILURE Status : Acute (2) Acute respiratory failure with hypoxia Code(s): J96.01 - ACUTE RESPIRATORY FAILURE WITH HYPOXIA Status: Acute (3) Encephalopathy acute Code(s): G93.40 - ENCEPHALOPATHY, UNSPECIFIED Status: Resolved Comment: multifectorial (4) Acute worsening of stage 3 chronic kidney disease Code(s): N18.3 - CHRONIC KIDNEY DISEASE, STAGE 3 (MODERATE) Status: Acute Comment: improving (5) Dehydration Code(s): E86.0 - DEHYDRATION Status: Resolved Comment: (6) E. coli UTI Code(s): N39.0 - URINARY TRACT INFECTION, SITE NOT SPECIFIED; B96.20 - UNSP ESCHERICHIA COLI THE CAUSE OF DISEASES CLASSD ELSWHR Status: Acute Comment: (7) Gastroenteritis, infectious, presumed Code(s): K52.9 - NONINFECTIVE GASTROENTERITIS AND COLITIS, UNSPECIFIED Status : Resolved Comment: (8) Hyperchloremic acidosis Code(s): E87.2 - ACIDOSIS Status: Acute (9) Hyperkalemia Code(s): E87.5 - HYPERKALEMIA Status: Resolved (10) Lactic acidosis Code(s): E87.2 - ACIDOSIS Status: Acute Comment: (11) Septic shock Code(s): A41.9 - SEPSIS, UNSPECIFIED ORGANISM; R65.21 - SEVERE SEPSIS WITH SEPTIC SHOCK Status: Resolved Comment: (12) Anemia, normocytic normochromic Code(s): D64.9 - ANEMIA, UNSPECIFIED Status: Chronic (13) Atrial fibrillation Code(s): I48.91 - UNSPECIFIED ATRIAL FIBRILLATION Status: Chronic Qualifiers: Atrial fibrillation type: paroxysmal Qualified Code(s): I48.0 - Paroxysmal atrial fibrillation (14) Dyslipidemia Code(s): E78.5 - HYPERLIPIDEMIA, UNSPECIFIED Status: Chronic (15) Hypertension Code(s): I10 - ESSENTIAL (PRIMARY) HYPERTENSION Status: Chronic (16) Obesity (BMI 30.0-34.9) Code(s): E66.9 - OBESITY, UNSPECIFIED Status: Chronic (17) Hypoglycemia associated with type 2 diabetes mellitus Code(s): E11.649 - TYPE 2 DIABETES MELLITUS WITH HYPOGLYCEMIA WITHOUT COMA Status: Acute (18) Folate deficiency Code(s): E53.8 - DEFICIENCY OF OTHER SPECIFIED B GROUP VITAMINS Status: Chronic (19) Hypokalemia Code(s): E87.6 - HYPOKALEMIA Status: Acute (20) Hypomagnesemia Code(s): E83.42 - HYPOMAGNESEMIA Status: Acute - Plan cont current plan of care, continue antibiotics, PT/OT, respiratory therapy * replace magnesium and potassium * continue cefepime * continue IV lasix * expecting discharge to SNU tomorrow * continue to monitor today * medication reviewed as below * symptomatic treatment. Review of Systems - Review of Systems ENT: negative: Ear Pain, Ear Discharge, Nose Pain, Nose Discharge, Nose Congestion, Mouth Pain, Mouth Swelling, Throat Pain, Throat Swelling, Other Respiratory: SOB with Excertion. negative: Cough, Dry, Shortness of Breath, Hemoptysis, Pleuritic Pain, Sputum, Wheezing Cardiovascular: negative: chest pain, palpitations, orthopnea, paroxysmal nocturnal dyspnea, edema, light headedness, other Gastrointestinal: negative: Nausea, Vomiting, Abdominal Pain, Diarrhea, Constipation, Melena, Hematochezia, Other Genitourinary: negative: Dysuria, Frequency, Incontinence, Hematuria, Retention , Other Musculoskeletal: negative: Neck Pain, Shoulder Pain, Arm Pain, Back Pain, Hand Pain, Leg Pain, Foot Pain, Other - Medications/Allergies Allergies/Adverse Reactions: Allergies Allergy/AdvReac Type Severity Reaction Status Date / Time No Known Allergies Allergy Verified 07/22/17 21:46 Medications: Current Medications Acetaminophen (Tylenol) 650 mg PO Q4H PRN PRN Reason: Headache/Fever or Mild Pain Last Admin: 10/12/17 19:30 Dose: 650 mg Albuterol/Ipratropium (Duoneb) 3 ml NEB Q4H PRN PRN Reason: SOB/WHEEZE Amlodipine Besylate (Norvasc) 10 mg PO DAILY [facility] Last Admin: 10/13/17 08:14 Dose: 10 mg Apixaban (Eliquis) 2.5 mg PO BID [facility] Last Admin: 10/13/17 08:15 Dose: 2.5 mg Artificial Tears (Tears Naturale) 0 drop EA EYE PRN PRN PRN Reason: Dry Eyes Aspirin (Aspirin Chewable) 81 mg PO DAILY [facility] Last Admin: 10/13/17 08:15 Dose: 81 mg Calcium Carbonate (Tums) 1,000 mg PO Q4H PRN PRN Reason: Heartburn or Indigestion Cyanocobalamin (Vitamin B-12) 1,000 mcg PO DAILY [facility] Last Admin: 10/13/17 08:14 Dose: 1,000 mcg Dextrose/Water (Dextrose 50%) 25 gm SLOW IVP PRN PRN PRN Reason: Hypoglycemia Last Admin: 10/10/17 08:48 Dose: 25 gm Diphenoxylate HCl/Atropine (Lomotil) 1 tab PO QIDPRN PRN PRN Reason: Diarrhea/Loose Stools Famotidine (Pepcid) 20 mg PO 2100 [facility] Last Admin: 10/12/17 19:30 Dose: 20 mg Ferrous Sulfate (Feosol) 325 mg PO DAILY [facility] Last Admin: 10/13/17 08:14 Dose: 325 mg Folic Acid (Folvite) 1 mg PO DAILY [facility] Last Admin: 10/13/17 08:13 Dose: 1 mg Furosemide (Lasix) 40 mg SLOW IVP 0600,1400 [facility] Last Admin: 10/13/17 05:17 Dose: 40 mg Glucagon (Glucagon) 1 mg IM PRN PRN PRN Reason: Hypoglycemia Guaifenesin (Robitussin Sf) 200 mg PO Q4H PRN PRN Reason: Cough Hydralazine HCl (Apresoline) 10 mg SLOW IVP Q4H PRN PRN Reason: Systolic BP > 180 Cefepime HCl 1 gm/ Sodium (Chloride) 100 mls @ 200 mls/hr IVPB Q24HR [facility] Last Admin: 10/12/17 20:36 Dose: 100 mls Dextrose/Water (D5w) 1,000 mls @ 0 mls/hr IV .Q0M PRN PRN Reason: Hypoglycemia Magnesium Sulfate 4 gm/ Sodium (Chloride) 258 mls @ 86 mls/hr IVPB NOW [facility] Stop: 10/13/17 12:00 Last Admin: 10/13/17 08:11 Dose: 258 mls Insulin Human Lispro (Humalog) 0 units SC .MODERATE SLIDING SC PRN PRN Reason: Moderate Correctional Scale Last Admin: 10/12/17 13:14 Dose: 4 unit Insulin Human Lispro (Humalog) 0 units SC .BEDTIME SLIDING SC PRN PRN Reason: Bedtime Correctional Scale Last Admin: 10/09/17 22:32 Dose: 4 unit Magnesium Hydroxide (Milk Of Magnesium) 30 ml PO DAILYPRN PRN PRN Reason: Constipation Metoprolol Succinate (Toprol Xl) 25 mg PO DAILY [facility] Last Admin: 10/13/17 08:14 Dose: 25 mg Mineral Oil/White Petrolatum (Eucerin Cream) 0 gm TOP BIDPRN PRN PRN Reason: Dry Skin Ondansetron HCl (Zofran Odt) 4 mg PO Q6H PRN PRN Reason: Nausea/Vomiting Ondansetron HCl (Zofran) 4 mg IVP Q6H PRN PRN Reason: Nausea/Vomiting Last Admin: 10/07/17 12:21 Dose: 4 mg Phenol (Chloraseptic [place] 180 Ml Bot) 0 ml PO PRN PRN PRN Reason: Sore Throat Potassium Chloride (K-Dur) 40 meq PO NOW [facility] Stop: 10/13/17 12:00 Last Admin: 10/13/17 08:14 Dose: 40 meq Rosuvastatin Calcium (Crestor) 5 mg PO DAILY [facility] Last Admin: 10/12/17 09:02 Dose: 5 mg Saccharomyces Boulardii (Florastor) 250 mg PO DAILY [facility] Last Admin: 10/13/17 08:15 Dose: 250 mg Sertraline HCl (Zoloft) 50 mg PO DAILY [facility] Last Admin: 10/13/17 08:14 Dose: 50 mg Sodium Bicarbonate (Bicarbonate, Sodium) 650 mg PO BID [facility] Last Admin: 10/13/17 08:14 Dose: 650 mg Sodium Chloride ([place] Nasal [place] 0.65%) 0 ml EA NARE QIDPRN PRN PRN Reason: Nasal Congestion Tramadol HCl (Ultram) 50 mg PO Q6H PRN PRN Reason: Pain 4-6 Last Admin: 10/12/17 19:30 Dose: 50 mg
[2017-10-13] MEDS: Rosuvastatin 5 MG TAB PO SCH (13:01)
[2017-10-13] MEDS: HumaLOG 300 UNITS/3 ML VIAL SC PRN (13:10)
[2017-10-13] MEDS: Cefepime 1 GM in Sodium Chloride 0.9% 100 ML IVPB SCH (22:02)
[2017-10-13] MEDS: Famotidine 20 MG TAB PO SCH (22:02)
[2017-10-14] MEDS: traMADol HCl 50 MG TAB PO PRN ×2 (01:24→09:08)
[2017-10-14 04:26] LABS: Anion Gap 17 mmol/L (10-20); BUN (Urea Nitrogen) 43 mg/dL (9.8-20.1); Calc. Creatinine Clearance 20 mL/min (70-130); Calcium 8.5 mg/dL (7.8-10.44); Carbon Dioxide 19 mmol/L (23-31); Chloride 107 mmol/L (98-107); Estimated GFR-MDRD 18; Glucose 202 mg/dL (83-110); Magnesium 1.9 mg/dL (1.6-2.6); Potassium 3.9 mmol/L (3.5-5.1); Sodium 139 mmol/L (136-145)
[2017-10-14] MEDS: Furosemide 40 MG/4 ML VIAL SLOW IVP SCH (04:55)
[2017-10-14 07:35] VITALS: BP 144/80; TEMP 97.4
[2017-10-14] MEDS: Cyanocobalamin (Vitamin B-12) 1,000 MCG TAB PO SCH (08:55)
[2017-10-14] MEDS: Folic Acid 1 MG TAB PO SCH (08:55)
[2017-10-14] MEDS: Sodium Bicarbonate Tab 325 MG TAB PO SCH (08:55)
[2017-10-14] MEDS: Saccharomyces boulardii 250 MG CAP PO SCH (08:55)
[2017-10-14] MEDS: Apixaban 2.5 MG TAB PO SCH (08:55)
[2017-10-14] MEDS: Amlodipine 10 MG TAB PO SCH (08:55)
[2017-10-14] MEDS: Rosuvastatin 5 MG TAB PO SCH (08:56)
[2017-10-14] MEDS: Ferrous Sulfate 325 MG TAB PO SCH (08:56)
--- NOTE | 2017-10-14 11:08 | PDOC.PN ---
- Subjective Encounter Start Date: 10/14/17 Encounter Start Time: 08:50 Patient seen and examined. No new complaints. No overnight events - Objective Resuscitation Status: Resuscitation Status DNI:No Intubation MAR Reviewed: Yes Vital Signs & Weight: Vital Signs (12 hours) Temp Pulse Resp BP BP Pulse Ox 10/14/17 08:55 64 144/80 H 10/14/17 07:33 97.4 F L 64 16 144/80 H 97 Weight Weight 166 lb 7.184 oz Most Recent Monitor Data Heart Rate from ECG 98 NIBP 131/63 NIBP BP-Mean 96 Respiration from ECG 17 SpO2 98 I&O: 10/13/17 10/14/17 10/15/17 06:59 06:59 06:59 Intake Total 600 220 Balance 600 220 Result Diagrams: 10/11/17 08:41 10/14/17 03:36 Additional Labs: Accuchecks 10/14/17 10/13/17 10/13/17 05:14 20:28 17:04 POC Glucose 215 H 180 H 163 H 10/13/17 11:35 POC Glucose 202 H Phys Exam - Physical Examination Constitutional: NAD HEENT: PERRLA, moist MMs, sclera anicteric Neck: no JVD, supple Respiratory: no wheezing, no rales, no rhonchi Cardiovascular: RRR, no significant murmur, no rub Gastrointestinal: soft, non-tender, no distention, positive bowel sounds Musculoskeletal: no edema, pulses present Neurological: non-focal, normal sensation Psychiatric: normal affect, A&O x 3 Skin: no rash, normal turgor Dx/Plan (1) Acute on chronic diastolic ACC/AHA stage C congestive heart failure Code(s): I50.33 - ACUTE ON CHRONIC DIASTOLIC (CONGESTIVE) HEART FAILURE Status : Acute (2) Acute respiratory failure with hypoxia Code(s): J96.01 - ACUTE RESPIRATORY FAILURE WITH HYPOXIA Status: Acute (3) Encephalopathy acute Code(s): G93.40 - ENCEPHALOPATHY, UNSPECIFIED Status: Resolved Comment: multifectorial (4) Acute worsening of stage 3 chronic kidney disease Code(s): N18.3 - CHRONIC KIDNEY DISEASE, STAGE 3 (MODERATE) Status: Acute Comment: improving (5) Dehydration Code(s): E86.0 - DEHYDRATION Status: Resolved Comment: (6) E. coli UTI Code(s): N39.0 - URINARY TRACT INFECTION, SITE NOT SPECIFIED; B96.20 - UNSP ESCHERICHIA COLI THE CAUSE OF DISEASES CLASSD ELSWHR Status: Acute Comment: (7) Gastroenteritis, infectious, presumed Code(s): K52.9 - NONINFECTIVE GASTROENTERITIS AND COLITIS, UNSPECIFIED Status : Resolved Comment: (8) Hyperchloremic acidosis Code(s): E87.2 - ACIDOSIS Status: Acute (9) Hyperkalemia Code(s): E87.5 - HYPERKALEMIA Status: Resolved (10) Lactic acidosis Code(s): E87.2 - ACIDOSIS Status: Acute Comment: (11) Septic shock Code(s): A41.9 - SEPSIS, UNSPECIFIED ORGANISM; R65.21 - SEVERE SEPSIS WITH SEPTIC SHOCK Status: Resolved Comment: (12) Anemia, normocytic normochromic Code(s): D64.9 - ANEMIA, UNSPECIFIED Status: Chronic (13) Atrial fibrillation Code(s): I48.91 - UNSPECIFIED ATRIAL FIBRILLATION Status: Chronic Qualifiers: Atrial fibrillation type: paroxysmal Qualified Code(s): I48.0 - Paroxysmal atrial fibrillation (14) Dyslipidemia Code(s): E78.5 - HYPERLIPIDEMIA, UNSPECIFIED Status: Chronic (15) Hypertension Code(s): I10 - ESSENTIAL (PRIMARY) HYPERTENSION Status: Chronic (16) Obesity (BMI 30.0-34.9) Code(s): E66.9 - OBESITY, UNSPECIFIED Status: Chronic (17) Hypoglycemia associated with type 2 diabetes mellitus Code(s): E11.649 - TYPE 2 DIABETES MELLITUS WITH HYPOGLYCEMIA WITHOUT COMA Status: Acute (18) Folate deficiency Code(s): E53.8 - DEFICIENCY OF OTHER SPECIFIED B GROUP VITAMINS Status: Chronic - Plan cont current plan of care, plan discussed w/ family, PT/OT, social services director * omnicef for 5 more days * continue oral laxis * renal function improving * now euvolemic * medication reviewed as below * symptomatic treatment * discharge to snu. Review of Systems - Review of Systems ENT: negative: Ear Pain, Ear Discharge, Nose Pain, Nose Discharge, Nose Congestion, Mouth Pain, Mouth Swelling, Throat Pain, Throat Swelling, Other Respiratory: negative: Cough, Dry, Shortness of Breath, Hemoptysis, SOB with Excertion, Pleuritic Pain, Sputum, Wheezing Cardiovascular: negative: chest pain, palpitations, orthopnea, paroxysmal nocturnal dyspnea, edema, light headedness, other Gastrointestinal: negative: Nausea, Vomiting, Abdominal Pain, Diarrhea, Constipation, Melena, Hematochezia, Other Genitourinary: negative: Dysuria, Frequency, Incontinence, Hematuria, Retention , Other Musculoskeletal: negative: Neck Pain, Shoulder Pain, Arm Pain, Back Pain, Hand Pain, Leg Pain, Foot Pain, Other Skin: negative: Rash, Lesions, Edgar, Bruising, Other - Medications/Allergies Allergies/Adverse Reactions: Allergies Allergy/AdvReac Type Severity Reaction Status Date / Time No Known Allergies Allergy Verified 07/22/17 21:46 Medications: Current Medications Acetaminophen (Tylenol) 650 mg PO Q4H PRN PRN Reason: Headache/Fever or Mild Pain Last Admin: 10/12/17 19:30 Dose: 650 mg Albuterol/Ipratropium (Duoneb) 3 ml NEB Q4H PRN PRN Reason: SOB/WHEEZE Amlodipine Besylate (Norvasc) 10 mg PO DAILY [facility] Last Admin: 10/14/17 08:55 Dose: 10 mg Apixaban (Eliquis) 2.5 mg PO BID [facility] Last Admin: 10/14/17 08:55 Dose: 2.5 mg Artificial Tears (Tears Naturale) 0 drop EA EYE PRN PRN PRN Reason: Dry Eyes Aspirin (Aspirin Chewable) 81 mg PO DAILY [facility] Last Admin: 10/14/17 08:55 Dose: 81 mg Calcium Carbonate (Tums) 1,000 mg PO Q4H PRN PRN Reason: Heartburn or Indigestion Cyanocobalamin (Vitamin B-12) 1,000 mcg PO DAILY [facility] Last Admin: 10/14/17 08:55 Dose: 1,000 mcg Dextrose/Water (Dextrose 50%) 25 gm SLOW IVP PRN PRN PRN Reason: Hypoglycemia Last Admin: 10/10/17 08:48 Dose: 25 gm Diphenoxylate HCl/Atropine (Lomotil) 1 tab PO QIDPRN PRN PRN Reason: Diarrhea/Loose Stools Famotidine (Pepcid) 20 mg PO 2100 [facility] Last Admin: 10/13/17 22:02 Dose: 20 mg Ferrous Sulfate (Feosol) 325 mg PO DAILY [facility] Last Admin: 10/14/17 08:56 Dose: 325 mg Folic Acid (Folvite) 1 mg PO DAILY [facility] Last Admin: 10/14/17 08:55 Dose: 1 mg Furosemide (Lasix) 40 mg SLOW IVP 0600,1400 [facility] Last Admin: 10/14/17 04:55 Dose: 40 mg Glucagon (Glucagon) 1 mg IM PRN PRN PRN Reason: Hypoglycemia Guaifenesin (Robitussin Sf) 200 mg PO Q4H PRN PRN Reason: Cough Hydralazine HCl (Apresoline) 10 mg SLOW IVP Q4H PRN PRN Reason: Systolic BP > 180 Cefepime HCl 1 gm/ Sodium (Chloride) 100 mls @ 200 mls/hr IVPB Q24HR [facility] Last Admin: 10/13/17 22:02 Dose: 100 mls Dextrose/Water (D5w) 1,000 mls @ 0 mls/hr IV .Q0M PRN PRN Reason: Hypoglycemia Insulin Human Lispro (Humalog) 0 units SC .MODERATE SLIDING SC PRN PRN Reason: Moderate Correctional Scale Last Admin: 10/13/17 13:10 Dose: 4 unit Insulin Human Lispro (Humalog) 0 units SC .BEDTIME SLIDING SC PRN PRN Reason: Bedtime Correctional Scale Last Admin: 10/09/17 22:32 Dose: 4 unit Magnesium Hydroxide (Milk Of Magnesium) 30 ml PO DAILYPRN PRN PRN Reason: Constipation Metoprolol Succinate (Toprol Xl) 25 mg PO DAILY [facility] Last Admin: 10/14/17 08:55 Dose: 25 mg Mineral Oil/White Petrolatum (Eucerin Cream) 0 gm TOP BIDPRN PRN PRN Reason: Dry Skin Ondansetron HCl (Zofran Odt) 4 mg PO Q6H PRN PRN Reason: Nausea/Vomiting Ondansetron HCl (Zofran) 4 mg IVP Q6H PRN PRN Reason: Nausea/Vomiting Last Admin: 10/07/17 12:21 Dose: 4 mg Phenol (Chloraseptic [place]br[place] 180 Ml Bot) 0 ml PO PRN PRN PRN Reason: Sore Throat Rosuvastatin Calcium (Crestor) 5 mg PO DAILY [facility] Last Admin: 10/14/17 08:56 Dose: 5 mg Saccharomyces Boulardii (Florastor) 250 mg PO DAILY [facility] Last Admin: 10/14/17 08:55 Dose: 250 mg Sertraline HCl (Zoloft) 50 mg PO DAILY [facility] Last Admin: 10/14/17 08:55 Dose: 50 mg Sodium Bicarbonate (Bicarbonate, Sodium) 650 mg PO BID [facility] Last Admin: 10/14/17 08:55 Dose: 650 mg Sodium Chloride ([place] Nasal Collbran 0.65%) 0 ml EA NARE QIDPRN PRN PRN Reason: Nasal Congestion Tramadol HCl (Ultram) 50 mg PO Q6H PRN PRN Reason: Pain 4-6 Last Admin: 10/14/17 09:08 Dose: 50 mg
--- NOTE | 2017-10-14 12:58 | DIS ---
DATE OF ADMISSION: 10/05/2017 DATE OF DISCHARGE: 10/14/2017 PRIMARY CARE PHYSICIAN: Casandra Oleary M.D. DISCHARGE DISPOSITION: [facility] home. PRIMARY DISCHARGE DIAGNOSES: Acute on chronic diastolic congestive heart failure stage C, acute resp iratory failure with hypoxia, acute on chronic kidney failure, baseline chronic kidney disease stage 3, Escherichia coli urinary tract infection, septic shock on admission, hyperchloremic acidosis, hypo glycemia associated with diabetes type 2, hypokalemia and hypomagnesemia. Lactic acidosis, resolved. Folate deficiency. Acute encephalopathy, resolved. Dehydration, resolved. Gastroenteritis, resol jose. Hyperkalemia on admission, resolved. SECONDARY DISCHARGE DIAGNOSES: Chronic kidney disease stage 3, obesity with BMI 32, paroxysmal atria l fibrillation, physical deconditioning, dyslipidemia, normocytic normochromic anemia, chronic diasto lic heart failure. PRIMARY PROCEDURES/OPERATIONS: Central line placement. RADIOLOGICAL INVESTIGATION: Chest x-ray on admission showed cardiomegaly. CT brain negative for any acute intracranial process. Chest x-ray showed pulmonary vascular congestion. SIGNIFICANT LABORATORY DATA: WBC 8.8, hemoglobin 10.5, platelet 146,000. Sodium 139, potassium 3.9, BUN 43, creatinine 2.51, calcium 8.5, magnesium 1.9. Urinalysis suggestive of UTI. Syphilis negati ve. Blood culture negative. Urine culture grew E. coli. C. diff negative. DISCHARGE MEDICATIONS: Clonidine 0.1 mg p.o. q.6 hourly p.r.n., amlodipine 10 mg p.o. daily, Eliquis 2.5 mg p.o. b.i.d., aspirin 81 mg p.o. daily, Cardizem CD 120 mg p.o. daily, hydralazine 25 mg p.o. t.i.d., iron 65 mg 1 tablet daily, Antivert 12.5 mg p.o. daily, Toprol XL 25 mg p.o. daily, Protonix 40 mg p.o. daily, Crestor 5 mg p.o. daily, Zoloft 50 mg p.o. daily, Zanaflex 4 mg p.o. at bedtime p.r .n., Omnicef 300 mg p.o. daily for 5 days, vitamin B12 1000 mcg p.o. daily, folic acid 1 mg p.o. saad y, Lasix 40 mg p.o. b.i.d., Humalog insulin as per sliding scale per protocol, insulin 70/30, 5 units subcu a.c., ropinirole 1 tablet 0.5 mg daily, Florastor 250 mg p.o. daily for 5 days, tramadol 50 mg q.6 hourly p.r.n. for pain. CONTRAINDICATIONS: None. CODE STATUS: Do not intubate. DISCHARGE PLAN: Post hospital, the patient is discharged to [facility]. Subsequently, t he patient will follow up with primary care physician. HOSPITAL COURSE: An 82-year-old female with above-mentioned medical problem who was admitte d by Dr. Henderson on 10/05/2017. Please see his H and P for further details. On admission, the patient was having septic shock. The patient's source of infection was urinary tract infection. The patient was admitted to CCU. She was requiring Levophed drip. She had central line placed in the emergency room. On admission, the patient had acute kidney failure on top of chronic kidney failure along wit h hyperkalemia and lactic acidosis. The patient's history was also suggestive of gastroenteritis. The patient was clinically dehydrated. She was given IV fluid and her renal function started improvi ng. Her hyperkalemia resolved. Her blood pressure slowly improved with Levophed drip and subsequent ly Levophed drip was turned off. The patient was given IV fluid resuscitation in the ICU as well as in the ER and subsequently the [facility] was transferred to medical floor. The patient became altered there, she was hypoxic there, she was requiring oxygen and that is why we did altered mental status workup. She was found with folate deficiency. Her chest x-ray showed pulm onary vascular congestion. She was in acute on chronic diastolic heart failure. The patient require d diuretic therapy and with the diuretic therapy, the patient's respiratory status improved and her r enal function was also continued to improve even with the diuresis. When the patient diastolic heart failure improved, the patient's acute mental status also improved an d the patient was feeling much better. During this admission, the patient was initially treated with meropenem and cefepime and subsequently based on culture result, we discontinued meropenem and continued the cefepime. The patient has fini shed 9 days of cefepime therapy while in hospital and we are giving her 5 more days at assisted b ased on renal dose. The patient's medication is titrated as above. The patient has physical deconditioning and that is why with help of case finisher, we arranged inga dsouza assisted. Outpatient renal function is improving. She is stable. Her blood pressure is also on higher side and that is why she will continue all her previous medication at assisted. They h ave to assess her need for any oxygen requirement as well as DuoNeb therapy as needed basis. She jeet l need diuretic therapy. Her above-mentioned medications will be continued. While in hospital, she had hypoglycemia and that is why we reduced dose of insulin as well. The patient is seen and examined at bedside today. Plan of care discussed with the family member. P aperwork for discharge done. Discharge medication reconciliation done. Total time spent on discharge is 32 minutes.
== END 2017-10-14 13:41 | DRG 871 ==
LOC: ERS 10:50 → CCU 16:31 → T4-B 10-07 14:37
PROVIDERS: ADMIT Family Medicine; ATTEND Family Medicine
PROC: 05HM33Z Insertion of Infusion Device into Right Internal Jugular Vein, Percutaneous Approach (ICD-10-PCS; principal; 2017-10-05)
DX: A41.51 Sepsis due to Escherichia coli [E. coli] (principal); R65.21 Severe sepsis with septic shock; J96.01 Acute respiratory failure with hypoxia; I50.33 Acute on chronic diastolic (congestive) heart failure; G93.41 Metabolic encephalopathy; N17.9 Acute kidney failure, unspecified; I13.0 Hypertensive heart and chronic kidney disease with heart failure and stage 1 through stage 4 chronic kidney disease, or unspecified chronic kidney disease; E87.5 Hyperkalemia; I48.2 Chronic atrial fibrillation; E11.22 Type 2 diabetes mellitus with diabetic chronic kidney disease; E86.0 Dehydration; E83.42 Hypomagnesemia; N18.3 Chronic kidney disease, stage 3 (moderate); E78.5 Hyperlipidemia, unspecified; E87.6 Hypokalemia; K52.9 Noninfective gastroenteritis and colitis, unspecified; E53.8 Deficiency of other specified B group vitamins; E66.9 Obesity, unspecified; Z68.32 Body mass index [BMI] 32.0-32.9, adult; Z87.440 Personal history of urinary (tract) infections; Z79.82 Long term (current) use of aspirin; Z79.4 Long term (current) use of insulin; Z79.01 Long term (current) use of anticoagulants; Z79.899 Other long term (current) drug therapy
CPT/HCPCS: 36415; 36416; 36556; 51702; 70450; 71045; 80048; 80053; 80069; 81003; 81015; 82140; 82274; 82533; 82607; 82746; 82805; 83605; 83630; 83735; 83880; 84443; 85007; 85025; 85027; 86780; 87040; 87077; 87081; 87086; 87186; 87324; 87449; 93005; 94640; 96361; 96365; 96367; 96375; A4216; A4353; G8978-GP-CM; G8979-GP-CK; G8987-GO-CL; G8988-GO-CJ; J0692; J0696; J1940; J2185; J2405; J2543; J3370; J3475; J7050; J7620; S0028

== ENCOUNTER 2017-11-08 10:30 | Inpatient (IN) | payer MEDICARE, MEDICAID ==
[2017-11-08 10:52] LABS: Actual Bicarbonate (HCO3a) 7.7 mEq/L (22-28); Analyzer IN Cardio ER; Base Excess (BEa) -20.6 mEq/L (-2.0 to +3.0); CO2 Tension 26.2 mmHg (35.0-45.0); Calcium, Ionized 1.12 mmol/L (1.12-1.30); Carboxyhemoglobin (COHb) 0.3 gm% (0.0-3.0); Hemoglobin (Hb) 10.3 g/dL (12.0-16.0); O2 Tension (PaO2) 154.5 mmHg (> 60.0); Potassium - ABG Lab 5.41 mmol/L (3.70-5.30)
[2017-11-08 10:53] LABS: Puncture Site LBA; pH, Arterial 7.09 (7.35-7.45)
[2017-11-08] MEDS ORDERED: Sodium Bicarb 50 MEQ/50 ML Abboject 8.4% SYRINGE ONE (11:11)
[2017-11-08] MEDS ORDERED: EPINEPHrine 1 MG/10 ML Abboject SYRINGE ONE (11:11)
[2017-11-08 11:31] LABS: Bicarbonate (HCO3v) 6.9 mmol/L (1.0-85.0); CO2 Tension (PvCO2) 27.4 mmHg (41.0-51.0); Calcium, Ionized 1.05 mmol/L (1.12-1.32); Hemoglobin - Calc 11.1 g/dL (12.0-18.0); O2 Tension (PvO2) 85.3 mmHg (35.0-45.0); T. Carbon Dioxide 7.7 mmol/L (1.0-85.0); pH (Venous) 7.007 (7.35-7.45); vO2 Saturation-calc 89.8 % (94-98)
[2017-11-08 11:34] LABS: INR-International Normal Ratio 1.6; PTT 39.2 SEC (22.9-36.1); Prothrombin Time 18.9 SEC (12.0-14.7)
[2017-11-08 11:43] LABS: ALT (SGPT) 16 U/L (8-55); AST (SGOT) 37 U/L (5-34); Albumin 3.2 g/dL (3.4-4.8); Alkaline Phosphatase 84 U/L (40-150); BUN (Urea Nitrogen) 66 mg/dL (9.8-20.1); Bilirubin, Total 0.3 mg/dL (0.2-1.2); Calc. Creatinine Clearance 0 mL/min (70-130); Calcium 8.5 mg/dL (7.8-10.44); Chloride 98 mmol/L (98-107); Estimated GFR-MDRD 10; Globulin 2.8 g/dL (2.4-3.5); Glucose 220 mg/dL (83-110); Magnesium 1.7 mg/dL (1.6-2.6); Phosphorus 7.9 mg/dL (2.3-4.7); Potassium 5.2 mmol/L (3.5-5.1); Sodium 132 mmol/L (136-145)
[2017-11-08 11:45] LABS: Carbon Dioxide Less than 8 mmol/L (23-31)
[2017-11-08 11:47] LABS: Anisocytosis SLIGHT = 6-15 cells (100X) (0-5/hpf); Band 19 % (5-11); Hemoglobin 9.4 g/dL (12.0-16.0); Lymphocytes 12 % (21-51); MDiff Complete? YES; Mean Corpuscular HGB CONC 29.6 g/dL (32.0-36.0); Mean Corpuscular Volume 97.9 fL (78.0-98.0); Mean Platelet Volume 9.2 fL (7.4-10.4); Monocytes 9 % (0-10); Myelocyte 1 % (0-0); Neutrophil 59 % (42-75); Nucleated RBC 2 % (0); Platelet Count 276 thou/uL (130-400); RBC Distribution Width 16.9 % (11.5-14.5); Red Blood Cell (RBC) Count 3.25 mill/uL (4.20-5.40); White Blood Cell (WBC) Count 15.6 thou/uL (4.8-10.8)
[2017-11-08 11:52] LABS: CKMB 39.5 ng/mL (0-6.6); Troponin I 1.607 ng/mL (< 0.028)
--- NOTE | 2017-11-08 12:03 | RAD ---
PORTABLE CHEST 1 VIEW: Date: 11/08/17 Time: 1059 hours HISTORY: Septic shock. FINDINGS/IMPRESSION: Comparison made with exam of 10/11/17. The heart is enlarged. The right internal jugular central line remains in place. NO gemini pulmonary e gonzalez, lobar consolidation pneumothorax or large effusions. POS: H
[2017-11-08 12:11] LABS: Free T4 (Free Thyroxine) 1.06 ng/dL (0.70-1.48); Thyroid Stimulating Hormone 4.8538 uIU/mL (0.35-4.94)
[2017-11-08] MEDS ORDERED: DOBUTamine 500 mg/250 ml 250 ML ONE (12:38)
[2017-11-08] MEDS ORDERED: Piperacillin/Tazobactam 4.5 GM VIAL ONE (12:40)
--- NOTE | 2017-11-08 13:22 | CT ---
CT BRAIN WITHOUT CONTRAST: Date: 11/08/17 HISTORY: Altered mental status. FINDINGS: Comparison made with exam of 10/10/17. Changes of cortical atrophy and chronic small vessel ischemic disease are again seen. No evidence of acute infarct, hemorrhage, midline shift, or abnormal extra-axial fluid collections are noted. The ve ntricular size is stable and the basilar cisterns are patent. The bony calvarium is intact. There is mucosal disease in the sphenoid sinuses. IMPRESSION: Stable exam. No evidence of acute intracranial process. POS: [facility]
[2017-11-08] MEDS ORDERED: Norepinephrine 8 MG/0.9% NS 250 ML ONE (13:26)
[2017-11-08] MEDS ORDERED: Meropenem 2 GM in Admixture Fee 1 EACH IVPB SCH (14:00)
[2017-11-08] MEDS: Sodium Bicarb 50 MEQ/50 ML Abboject 8.4% SYRINGE ONE (14:00)
[2017-11-08] MEDS ORDERED: Norepinephrine 8 MG/250 ML BAG IVPB PRN (14:04)
[2017-11-08] MEDS ORDERED: fentaNYL Citrate/PF 2,000 MCG in Sodium Chloride 0.9% 60 ML IV SCH (14:06)
[2017-11-08] MEDS ORDERED: Fentanyl BOLUS 250 ML IVPB PRN (14:06)
[2017-11-08] MEDS ORDERED: Propofol BOLUS 1,000 MG/100 ML VIAL IV PRN (14:06)
[2017-11-08] MEDS ORDERED: Lorazepam 2 MG/ML VIAL SLOW IVP PRN (14:06)
[2017-11-08] MEDS ORDERED: Propofol 1,000 MG/100 ML VIAL IV PRN (14:06)
[2017-11-08] MEDS ORDERED: DISCONTINUE PREVIOUS NARCOTIC PAIN MEDICATIONS AND BENZODIAZEPINES FS SCH (14:06)
[2017-11-08] MEDS ORDERED: Sodium Chloride 0.9% 1,000 ML IV SCH (14:15)
[2017-11-08] MEDS ORDERED: DOBUTamine 500 mg/250 ml 500 MG in Premix Bag 1 BAG IVPB SCH (14:15)
[2017-11-08 14:18] VITALS: BP 76/45
[2017-11-08 14:21] LABS: Actual Bicarbonate (HCO3a) 8.5 mEq/L (22-28); Base Excess (BEa) -16.6 mEq/L (-2.0 to +3.0); Calcium, Ionized 0.95 mmol/L (1.12-1.30); Carboxyhemoglobin (COHb) 1.1 gm% (0.0-3.0); Hemoglobin (Hb) 8.3 g/dL (12.0-16.0); Potassium - ABG Lab 4.55 mmol/L (3.70-5.30); pH, Arterial 7.27 (7.35-7.45)
[2017-11-08 14:23] LABS: CO2 Tension 18.8 mmHg (35.0-45.0); Puncture Site ALINE
[2017-11-08] MEDS ORDERED: Sodium Chloride 0.9% 2,000 ML IV SCH (14:30)
[2017-11-08] MEDS ORDERED: Sodium Bicarbonate 150 MEQ in Dextrose 5% in Water 850 ML IV SCH (14:30)
[2017-11-08] MEDS ORDERED: Dextrose 5% in Water 1,000 ML IV SCH (14:30)
[2017-11-08] MEDS: EPINEPHrine 4 MG, Admixture Fee 1 EACH in Dextrose 5% in Water 250 ML IVP SCH ×3 (14:37→18:46)
--- NOTE | 2017-11-08 15:04 | RAD ---
PORTABLE CHEST 1 VIEW: Date: 11/08/17 Time: 1338 hours HISTORY: Respiratory failure. FINDINGS/IMPRESSION: Comparison made with earlier exam at 1059 hours from the same date. An endotracheal tube has been placed in the interim with tip just at the level of the minh. A nasog astric tube has been placed, which can be traced into the stomach, with tip excluded from the film. R ight internal jugular central line remains in place. There is mild pulmonary vascular congestion. No lobar consolidation, pneumothoraces, or large effusions are seen. POS: [facility]
--- NOTE | 2017-11-08 15:06 | RAD ---
ABDOMEN 1 VIEW: Date: 11/08/17 HISTORY: Nasogastric tube placement. FINDINGS/IMPRESSION: There is a nasogastric tube with tip in the stomach. There are postop changes in the right upper quad rant. There is gaseous distention of the stomach. There are degenerative changes of the spine. POS: [facility]
[2017-11-08 15:16] VITALS: BMI 29.8
[2017-11-08 15:40] LABS: Lactic Acid 16.4 mmol/L (0.5-2.2)
--- NOTE | 2017-11-08 15:57 | CON ---
DATE OF CONSULTATION: 11/07/2017 PRIMARY THERMOSTAT MECHANIC: Bora Sauceda M.D. REASON FOR CONSULTATION: Possible cardiogenic shock. HISTORY OF PRESENT ILLNESS: Ms. Linares is a pleasant 82-year-old female who comes to the hospital for altered mentation and low blood pressure. [facility] She was f ound to be more short of breath than normal and hypotensive. Eventually, she was admitted for septic shock with hypotension requiring pressor support. She had to be intubated. She had metabolic acido sis as well with pH of 7.0. Cardiology is being consulted for possibility of her LV function being a n issue. PAST MEDICAL HISTORY: 1. Atrial fibrillation on chronic anticoagulation with Eliquis. 2. Coronary artery disease. 3. Type 2 diabetes. 4. Hypertension. 5. Hyperlipidemia. 6. Recurrent urinary tract infections. 7. History of cerebrovascular accident in the past. 8. Chronic kidney disease stage 3. PAST SURGICAL HISTORY: 1. Appendectomy. 2. Cholecystectomy. OUTPATIENT MEDICATIONS ON DISCHARGE: 1. Omnicef 300 mg a day. 2. Vitamin B12. 3. Folic acid. 4. Lasix 40 mg twice a day. 5. Florastor daily. 6. Tramadol p.r.n. 7. Humalog. 8. Novolin 70/30. 9. Zanaflex 4 mg p.r.n. 10. Aspirin 81 a day. 11. Iron 65 mg daily. 12. Sertraline 50 mg daily. 13. Hydralazine 25 mg t.i.d. 14. Metoprolol succinate 25 mg a day. 15. Meclizine p.r.n. 16. Clonidine 0.1 p.r.n. 17. Eliquis 2.5 mg b.i.d. 18. Protonix 40 mg a day. 19. Amlodipine 10 mg a day. 20. Rosuvastatin 25 mg a day. 21. Diltiazem 120 mg a day. 22. Ropinirole. ALLERGIES: No known drug allergies. FAMILY HISTORY: Noncontributory. SOCIAL HISTORY: No alcohol, tobacco or drugs. [facility], but she lives in [place]. REVIEW OF SYSTEMS: Unobtainable as the patient is sedated and intubated. PHYSICAL EXAMINATION: VITAL SIGNS: Currently, she is hypothermic 88.3, pulse 66, respiratory rate 30, satting 98% on 40% F iO2, heart rate is 62. GENERAL: Sedated and intubated. LUNGS: Clear. CARDIOVASCULAR: S1, S2, no S3, S4. There is a grade 3/6 systolic murmur in the right sternal border . ABDOMEN: Soft, positive bowel sounds. EXTREMITIES: 2+ edema. SKIN: Warm and dry. LABORATORY DATA: Laboratory work was reviewed. White count 15, hemoglobin 9.4, hematocrit 31, plate let count 276. Coags; INR 1.6. ABG; pH was 7.09, up to 7.27 now after intubation. CMP was reviewed. Potassium at 5.2, carbon dioxide is undetectable, chloride of 98, CK-MB was 39, tr oponin is 1.6, BNP was 3397, albumin of 3.2. IMAGING DATA: 1. EKG was reviewed. 2. Chest x-ray was reviewed. ASSESSMENT AND PLAN: 1. Non-ST elevation myocardial infarction: Likely demand ischemia from her septic shock. 2. Septic shock. On antibiotics likely urine source. 3. Bradycardia: Heart rate was in the 30s initially, it responded to Levophed and epinephrine. Cur rently, she appears to be in atrial fibrillation with variable ventricular response, sometimes slow. 4. Atrial fibrillation: On Eliquis for stroke prophylaxis. This may be held during her hospitaliza tion. 5. Recurrent urinary tract infections, advised per primary team. Thank you for letting us to participate in the care of your patient. Dr. Sauceda, her primary card iologist will follow up in the morning.
[2017-11-08] MEDS ORDERED: Meropenem 2 GM, Admixture Fee 1 EACH in Sodium Chloride 0.9% 100 ML IVPB SCH (16:00)
[2017-11-08] MEDS: Sodium Bicarbonate 150 MEQ in Dextrose 5% in Water 850 ML IV SCH ×2 (17:14→18:45)
[2017-11-08] MEDS ORDERED: Hydrocortisone Sod Succ/PF 100 mg/2 ml Vial IVP SCH ×2 (18:00)
[2017-11-08] MEDS ORDERED: Piperacillin/Tazobactam 2.25 GM in Sodium Chloride 0.9% 100 ML IVPB SCH (18:00)
[2017-11-08 20:21] LABS: Actual Bicarbonate (HCO3a) 4.1 mEq/L (22-28); Base Excess (BEa) -25.3 mEq/L (-2.0 to +3.0); Calcium, Ionized 0.97 mmol/L (1.12-1.30); Carboxyhemoglobin (COHb) 1.1 gm% (0.0-3.0); O2 Tension (PaO2) 140.5 mmHg (> 60.0); Potassium - ABG Lab 4.75 mmol/L (3.70-5.30)
[2017-11-08 20:25] LABS: Puncture Site ALINE
[2017-11-08] MEDS ORDERED: Pantoprazole 40 MG VIAL IVP SCH (21:00)
[2017-11-08] MEDS ORDERED: Enoxaparin Sodium 30 MG/0.3 ML SYRINGE SC SCH (21:00)
--- NOTE | 2017-11-08 22:55 | PRG ---
DATE OF SERVICE: 11/08/2017 Ms. Linares had her evening blood gas. Her pH, this evening with a bicarbonate drip, was 7.0, CO2 o f 17, pO2 of 140. It has become very apparent that she will not survive this. Her family has been notified. I have discussed her echocardiogram with Dr. Parry. Her ejection fraction is decreased, which most likely is a sepsis-induced decrease in left ventricular systolic function. She also appears to have a vegetation on the valve. Unfortunately, there were no therapeutic options for her. She certainly could have bowel and bhatt ve had a vegetation embolus to gut or actually a plaque embolus to gut, leading to this horrible meta bolic acidosis that is refractory to care. We did start a vitamin C protocol earlier, even though the control trials are still pending. I have explained to the family we are pulling out all stuffs trying to increase her chances of surviv al, but it is clear at this point that she will not survive this. She is a DO NOT RESUSCITATE patien t. Per their wishes today and their previous wishes they did were willing to intubate her if she had some chance of survival, but they do want her to go through chest compressions or CPR.
--- NOTE | 2017-11-08 23:52 | CON ---
DATE OF CONSULTATION: 11/08/2017 HISTORY OF PRESENT ILLNESS: Ms. Linares is an 82-year-old female who presented with altered mental status and hypotension. She was identified as having severe metabolic acidosis on a blood gas done a t 10:50 this morning with a pH of 7.09. She is on a nonrebreather mask at that time. She was placed on BiPAP apparently. I was consulted for admission for cardiogenic shock. I know Ms. Linares well. She has had multiple admissions for urinary tract infections. It was suggested last admission that we get Urology involved with her care given that she has frequen t UTIs to consider antibiotic suppression. She was recently discharged home from the skilled unit. While she was at the skilled unit, she slept a lot, had poor p.o. intake, but no complaints. She subsequently has been admitted to the Critical Care Unit. She was a DO NOT RESUSCITATE patient last admission. The patient's family wanted her intubated this admission, but they have also agreed not to do chest compressions when I met with them in the ICU and for us not to cardiovert her should she develop malignant rhythm disturbance. PAST MEDICAL HISTORY: Remarkable for, 1. Atrial fibrillation. 2. History of anticoagulation. 3. History of coronary artery disease. 4. History of diabetes. 5. History of hypertension. 6. Lipid disorder. 7. Frequent urinary tract infections. 8. History of cerebrovascular accident. 9. Chronic kidney disease. 10. History of cholecystectomy and appendectomy. 11. History of back surgery in the past. MEDICATIONS: Last admission, she came in on tramadol, metformin, aspirin, Eliquis, clonidine, Lasix, hydralazine, lisinopril, Antivert, metoprolol, ropinirole, Zoloft, Zanaflex, and insulin. FAMILY HISTORY: Negative for lung disease in early age. REVIEW OF SYSTEMS: Not obtainable. Physical exam on arrival in the ICU, cuff pressure was 65. She was on epi and Levophed. These infus ions were increased significantly. She was given 2-liter bolus of saline on arrival in the Critical Care Unit. Blood pressure increased to a systolic of over 100. She was given 2 more amps of bicarbonate on arrival in the ICU and a bicarbonate drip is being mixed up. Repeat blood gas intubated is pH 7.37, pCO2 of 18, pO2 of 327 on 100%. Potassium on the blood gas is 4.5. Chest radiograph showed no infiltrates. Echocardiogram done this summer showed normal left ventricular systolic function. Nuclear stress test done this summer showed no evidence of ischemia on nuclear stress testing. Last admission she was here, she had severe intravascular volume depletion with diarrhea and hypoprot einemia. She has been treated in her skilled unit/rehab facility with Lasix because of lower extremity edema. Other lab includes sodium of 132, potassium 5.2, chloride 98, bicarbonate less than 8 at 11 o'clock t his morning, BUN 66, creatinine 4.19. Her last creatinine when she left here was 2.5. Her creatinin e was 1.3 in September. White count 15.6, hemoglobin 9.4, platelets 276,000, and had 19% bands on a peripheral smear. IMPRESSION: 1. Probable urinary tract sepsis. 2. Probable severe intravascular volume depletion with a history of poor p.o. intake and the adminis tration of diuretics both in skilled facility and at home. 3. Oliguric renal failure. Her echocardiogram will be repeated, but I do not feel that this is cardiogenic shock. Given her his tory of multiple urinary tract infections, it is more likely this is a recurrent urinary tract infect ion with bacteremia. Chest radiograph did not show any infiltrate suggestive of pneumonia, although she may develop infilt rates once she is hydrated. I recommended femoral artery placement. This has been done. I have also met with the family and ans wered all their questions. Critical care time 45 minutes independent of the procedure.
--- NOTE | 2017-11-08 23:56 | OP ---
PROCEDURE: for blood pressure monitoring placement, groin was cleansed with chlorhexidine foll owed by Betadine followed by chlorhexidine. Femoral artery pulse was not palpable, but fortunately I was able locate the femoral artery on the second pass with an introducer needle. A wire was fed in the 5 [place] catheter was inserted. This was sewn in place x2 and connected to the monitor. Good wa veform was obtained. A sterile dressing was applied. This was all done in sterile fashion.
--- NOTE | 2017-11-08 23:58 | PRG ---
DATE OF SERVICE: 11/08/2017 SUBJECTIVE: Ms. Linares continues to be hypotensive. Her latest blood pressure actually is right a round 100, but she is still on pressors. She is not on any sedation and she is not awake. The family asked the nurse to call me stating that they wanted to withdraw support and extubate her. I recommended to leave her intubated. Our plan at this time based on my discussion with the oldest daughter is that we will leave her intubated, turn her IMV rate down to 4 and then turn off all pressors and all supportive drugs. I suspect she will p ass within 15-20 minutes and do with the burden of extubating her mom and watching her potentia lly struggle to breathe. She may not breathe at all when she is extubated, but I think this is the best option for all other f amily. There is a large family in the room. The nurse will pronounce her release her to the f [facility] home. In my opinion, the cause of is sepsis with possible endocarditis contributing. Although obviously we will not know until blood cultures reported out. There is no evidence of this is myocardial infarction or anything untoward such as an overdose.
--- NOTE | 2017-11-09 07:27 | HP ---
DATE OF ADMISSION: 11/08/2017 REASON FOR ADMISSION AND CHIEF COMPLAINT: Altered mental status and hypotension. HISTORY OF PRESENT ILLNESS: Ms. Linares is an 82-year-old female with past medical history of diabetes mellitus, hypertension and chronic atrial fibrillation, who was recently discharged from the assisted actually last week. She was doing well until yesterday and according to the family, the patient did not eat or drink much yesterday and today, she was feeling very weak , unable to get up and feeling dizzy as well. She did not have any chest pain or shortness of breath, no fever, no headache. Family reports the patient has not used bathroom since last night and today, she is nonverbal and also there is some change in mental status also. According to the family, the patient also fell on Thursday. The patient came from assisted on Thursday last week. The patient was recently in the hospital in September. In the ER, the patient was found to be hypotensive and hypoxic as well and with lactic acidosis. So, the patient was started on dobutamine, Levophed and epinephrine. Initially, family and the patient refused intubation, but later they agreed and the patient was intubated and being admitted to ICU. The patient is still hypotensive in spite of the pressors. Suspected to have septic shock, so she received a dose of vancomycin and Zosyn in the ER. Currently, the patient is still hypotensive. PAST MEDICAL HISTORY: 1. Hypertension. 2. Diabetes mellitus. 3. Hyperlipidemia. 4. History of UTI. 5. Coronary artery disease and chronic atrial fibrillation on anticoagulation. 6. History of cerebrovascular accident. 7. Chronic kidney disease, stage 3. 8. Recent hypovolemic shock due to diarrhoea PAST SURGICAL HISTORY: Status post appendectomy, status post cholecystectomy. CURRENT MEDICATIONS: The patient is on tramadol p.r.n. 50 mg q.i.d., metformin 1000 mg b.i.d., aspirin 81 mg daily, clonidine 0.1 q.6 hours p.r.n., Lasix 20 mg b.i.d., hydralazine 25 mg t.i.d., lisinopril 10 mg daily, metoprolol XL 25 daily, Protonix 40 mg daily, sertraline 50 mg daily. ALLERGIES: No known drug allergies. FAMILY HISTORY: Nothing of interest. SOCIAL HISTORY: The patient lives alone. No history of smoking, alcohol, or drug use. REVIEW OF SYSTEMS: Unable to obtain because of the patient's mental status. The patient is intubated. PHYSICAL EXAMINATION: GENERAL: The patient is hypotensive. VITAL SIGNS: Temperature 98, pulse 70, blood pressure 60/30 LUNGS: Breath sounds diminished bilaterally. Percussion not dull bilaterally. No rales, no rhonchi. CARDIOVASCULAR: S1, S2. ABDOMEN: Soft, no distention, no tenderness, normal bowel sounds present. RECTAL: Deferred. CENTRAL NERVOUS SYSTEM: The patient is unresponsive. LABORATORY AND X-RAY FINDINGS: CBC shows WBC 15, hemoglobin 9, hematocrit 31, platelets 276,000. Metabolic panel: Sodium 134, potassium 4.4, chloride 98, CO2 less than 8, BUN 66, creatinine 4.1, glucose of 220. Chest x-ray, no infiltrate. Urinalysis not done. EKG shows junctional bradycardia, heart rate of 34. UA not done. ASSESSMENT: 1. Acute respiratory failure with possible septic shock. source possible UTI. 2. Acute kidney injury. 3. Metabolic encephalopathy. 4. Diabetes mellitus. 5. Chronic kidney disease, stage 3. 6. Chronic atrial fibrillation. PLAN: 1. Admit to the critical care unit. 2. Condition is critical. Prognosis is poor. 3. Epinephrine 4. Levophed infusion. 5. Zosyn 2.25 grams piggyback q.6 hours. 6. Protonix 40 mg IV piggyback daily. 7. Pulmonary consult. 8. Lovenox 30 mg subcutaneously daily. 9. Diet, n.p.o. 10. Cardiology consult. RENARDD
[2017-11-09] MEDS ORDERED: Prevnar 13-Val Conj/PF 0.5 ML SYRINGE IM ONE (09:00)
--- NOTE | 2017-11-11 05:17 | DIS ---
DATE OF ADMISSION: 11/08/2017 DATE OF : 11/08/2017 ADMITTING DIAGNOSES: 1. Acute respiratory failure. 2. Sepsis with septic shock, possible source was urinary tract infection. 3. Acute kidney injury. 4. Metabolic encephalopathy. 5. Diabetes mellitus. 6. Chronic kidney disease. 7. Non-ST elevation myocardial infarction, possibly due to demand ischemia. 8. Chronic atrial fibrillation. FINAL DIAGNOSES: 1. Acute respiratory failure. 2. Septic shock, sepsis due to possible urinary tract infection. 3. Acute kidney injury. 4. Metabolic encephalopathy. 5. Demand ischemia with a non-ST elevation acute myocardial infarction. 6. Diabetes mellitus. 7. Chronic atrial fibrillation. BRIEF SUMMARY OF HOSPITAL COURSE: Ms. Linares was an 82-year-old female, admitted because of respiratory failure. The patient came unresponsive , not eating well, and not taking fluids well. The patient was found to have possible septic shock. She was given IV antibiotics, Zosyn, and vancomycin as well as she was started on pressors, which include Levophed, epinephrine, and dobutamine in the ER. The patient was initially not intubated, later intubated after family agreed and admitted to CCU. The patient remained hypotensive in spite of the pressors. Her blood pressure slowly improved later on, but the patient remained acidotic. The patient was seen by a medical record retrieval specialist Dr. Rutherford and director medical writing Dr. Parry. Protein Scientist felt the patient has possible sepsis due to urinary tract infection with severe intravascular volume depletion and continue with pressors as well as started on meropenem and her prognosis remained poor. The patient was seen by Dr. Parry for Cardiology. He felt the patient possibly has a demand ischemia from septic shock resulting non-ST elevation myocardial infarction. The patient had bradycardia, but improved later on, suggested supportive care for the time being, but the patient 's condition was not improving. Her condition was discussed with the family by Dr. Rutherford. Later, the family decided to stop all the treatments and all the treatments were stopped including the pressors, after which patient in few minutes. Family was there and patient was pronounced . [facility]
== END 2017-11-08 22:45 | disposition expired | DRG 871 ==
LOC: ERS 10:30 → CCU 13:10
PROVIDERS: ADMIT Internal Medicine; ATTEND Internal Medicine
PROC: 04HY32Z Insertion of Monitoring Device into Lower Artery, Percutaneous Approach (ICD-10-PCS; principal; 2017-11-08)
PROC: 5A1935Z Respiratory Ventilation, Less than 24 Consecutive Hours (ICD-10-PCS; 2017-11-08)
DX: A41.9 Sepsis, unspecified organism (principal); J96.00 Acute respiratory failure, unspecified whether with hypoxia or hypercapnia; G93.41 Metabolic encephalopathy; R65.21 Severe sepsis with septic shock; N17.9 Acute kidney failure, unspecified; I38 Endocarditis, valve unspecified; I24.8 Other forms of acute ischemic heart disease; R41.82 Altered mental status, unspecified; I95.9 Hypotension, unspecified; E78.5 Hyperlipidemia, unspecified; I25.10 Atherosclerotic heart disease of native coronary artery without angina pectoris; I48.2 Chronic atrial fibrillation; Z79.01 Long term (current) use of anticoagulants; Z86.73 Personal history of transient ischemic attack (TIA), and cerebral infarction without residual deficits; I12.9 Hypertensive chronic kidney disease with stage 1 through stage 4 chronic kidney disease, or unspecified chronic kidney disease; E11.22 Type 2 diabetes mellitus with diabetic chronic kidney disease; N18.3 Chronic kidney disease, stage 3 (moderate); Z79.84 Long term (current) use of oral hypoglycemic drugs; Z79.82 Long term (current) use of aspirin; Z66 Do not resuscitate; R57.0 Cardiogenic shock; Z87.440 Personal history of urinary (tract) infections
CPT/HCPCS: 31500; 36415; 36556; 51702; 70450; 71045; 74018; 80053; 82330; 82533; 82553; 82803; 82805; 83605; 83735; 83880; 84100; 84439; 84443; 84484; 85025; 85610; 85730; 87040; 93005; 93306; 94002; 94640; 94660; 94760; 96365; 96366; 96368; 96375; 99292; C9113; J0171; J1250; J1650; J1720; J2185; J2543; J3370; J3411; J7050; J7070; J7620